=== PATIENT | female | born 1940 | race Caucasian/White ===

== ENCOUNTER → 2019-04-15 | Outpatient (REF) | payer MEDICARE, BC ==
[2019-04-15 15:42] LABS: APPEARANCE, URINE TURBID (CLEAR); BACTERIA, URINE AUTO 3+ (NEGATIVE); BILIRUBIN, URINE AUTO NEGATIVE (NEGATIVE); BLOOD, URINE BLOOD 2+ (NEGATIVE); COLOR, URINE YELLOW (YELLOW); GLUCOSE, URINE (UA) AUTO NEGATIVE (NEGATIVE); KETONE, URINE AUTO NEGATIVE (NEGATIVE); LEUKOCYTE ESTERASE, URINE AUTO 2+ (NEGATIVE); NITRITE, URINE AUTO NEGATIVE (NEGATIVE); PROTEIN, URINE AUTO 1+ mg/dL (NEGATIVE); RBC, URINE AUTO 69 /HPF (0-3); SPECIFIC GRAVITY URINE AUTO 1.014 (1.002-1.035); SQUAMOUS EPITHELIAL CELL UR AU 1 /HPF (0-6); UROBILINOGEN, URINE AUTO 0.2 mg/dL (0.0-2.0); WBC, URINE AUTO TNTC /HPF (0-3)
== END ==
LOC: M LAB REF 15:04
PROVIDERS: ATTEND Nurse Practitioner Family
DX: N39.0 Urinary tract infection, site not specified (principal)

== ENCOUNTER → 2019-08-22 | Outpatient (REF) | payer MEDICARE, BC | LOC: M LAB REF 11:26 | PROVIDERS: ATTEND Nurse Practitioner Adult Health | DX: M81.0 Age-related osteoporosis without current pathological fracture (principal) ==

== ENCOUNTER → 2020-01-28 | Outpatient (REF) | payer MEDICARE, BC | LOC: M LAB REF 16:26 | PROVIDERS: ATTEND Internal Medicine | DX: M81.0 Age-related osteoporosis without current pathological fracture (principal) ==

== ENCOUNTER → 2020-09-07 | Outpatient (REF) | payer MEDICARE, BC | LOC: M LAB REF 12:11 | PROVIDERS: ATTEND Internal Medicine | DX: Z79.899 Other long term (current) drug therapy (principal) ==

== ENCOUNTER → 2021-02-02 | Outpatient (REF) | payer MEDICARE, BC | LOC: M LAB REF 16:21 | PROVIDERS: ATTEND Internal Medicine | DX: M81.0 Age-related osteoporosis without current pathological fracture (principal) ==

== ENCOUNTER → 2021-02-27 | Outpatient (CLI) | payer MEDICARE, BC ==
[~2021-02-27] MED LIST: ACET-683 PO; BIMA01SOL OD; CENT1TAB PO; CLOB60OI5 TOP; DICL1GEL3 TOP; OYSTTAB3 PO; PRESCAP PO; PROL60SO INJ; QC A650T3 PO; ROPI0.5T3 PO; SIMV40TA20 PO; [UNRECOGNIZED DRUG - OTHER] PO
== END ==
LOC: M LABSMTC 11:11
PROVIDERS: ATTEND Anesthesiology
DX: Z01.812 Encounter for preprocedural laboratory examination (principal); Z20.822 Contact with and (suspected) exposure to COVID-19

== ENCOUNTER 2021-03-04 07:47 | Day surgery (SDC) | payer MEDICARE, BC ==
[~2021-03-04] VITALS: Ht 149.9 cm; Wt 55.2 kg
[~2021-03-04 07:47] MED LIST changes: +LIDOCAINE 1% MDV 20ML VIAL SQ PRN; +LR 1,000 ML IV ONE
[2021-03-04] MEDS ORDERED: LIDOCAINE 2% 100MG/5ML SDV (FOR ANES.) As Ordered ONE (08:50)
[2021-03-04] MEDS ORDERED: propofoL 200 MG/20 ML VIAL As Ordered ONE (08:50)
[2021-03-04] MEDS ORDERED: fentaNYL 100 MCG/2 ML INJECTION (J3010) As Ordered ONE (08:51)
[2021-03-04] MEDS ORDERED: MIDAZOLAM INJ 2MG/2ML VIAL (J2250 PER 1MG) As Ordered ONE (08:51)
[2021-03-04] MEDS ORDERED: LIDOCAINE 1% SDV 30ML VIAL As Ordered ONE (08:57)
[2021-03-04] MEDS ORDERED: ceFAZolin 2 GM/D5W 50 ML IV BAG (J0690 PER 500MG) As Ordered ONE (09:23)
[2021-03-04] MEDS: ceFAZolin 1GM VIAL (J0690 PER 500MG) As Ordered ONE ×2 (09:32→10:12)
[2021-03-04] MEDS ORDERED: ceFAZolin SOD 2 GM in IV 1 EA IV ONE (09:55)
[2021-03-04 11:20] VITALS: BP 166/80
--- NOTE | 2021-03-04 15:29 | REP ---
INDICATION: NEUROSTIM STAGE 1. COMPARISON: None. TECHNIQUE: Two C-arm views pelvis. FINDINGS: A catheter is visualized with the radiopaque tip in the posterior left pelvis. IMPRESSION: Forty seconds fluoroscopy time utilized. <Electronically signed by Riccardo Meek > 03/04/21 [id number]
--- NOTE | 2021-03-04 17:00 | RO ---
OPERATIVE NOTE DATE OF OPERATION: 03/04/2021 PREOPERATIVE DIAGNOSIS: Both fecal and urinary incontinence. POSTOPERATIVE DIAGNOSIS: Both fecal and urinary incontinence. PROCEDURE: Stage I InterStim with of course fluoroscopic guidance, placement of temporary generator, programming, etc. SURGEON: Dr. Tori Kennedy MANAGER BACKGROUND: None. ANESTHESIA: Sedation and local. SPECIMENS: None. BRIEF DESCRIPTION OF PROCEDURE AND FINDINGS: Hiral was brought to the operating room, where sufficient sedation was given. She was placed prone in the normal position, prepped in the usual fashion, and, of course, after identification of patient, etc., and measurements, numbed. At this point, we measured the anatomy for this patient. She has very close to the skin, prominent sacrum, and the initial measurement was a bit high based on x-ray, so we went across the foramen with a line on an x-ray shot and marked that and then placed the needle on the patient's left side. This had a steep angle but was in the right foramen. We replaced another with a less dramatic angle, and this also had good adry, but neither one had excellent toe, so we went ahead and tried the patient's right side. We did not have any particular difficulty getting into the foramen, but this definitely did not have much adry at all, nor did it have markedly better toe, so we went back to the left side one and went ahead and used that needle, placed the guide and then the dilator for the foramen, and then the lead itself tracking out laterally, as is typical. Then, of course, having that placed we tested it. Had good response at all four sites, and we went ahead and deployed those times for that hopefully permanent lead, and then we created a pocket out toward the left lateral at the superior aspect of the buttock and used the Bovie to make sure this was hemostatic, irrigated with antibiotic irrigant, and brought that lead out to that pocket, placed the automatic bow maker machine tender, connected them, and closed the pocket with a deep layer closure of 2-0 Vicryl. All the skin wounds were closed with 3-0 Vicryl with good approximation and hemostasis achieved. Dry sterile dressing was then applied. ESTIMATED BLOOD LOSS FOR THE PROCEDURE: Maybe 5 mL. FLUID REPLACEMENT: Crystalloid. COMPLICATIONS: None. CONDITION AND DISPOSITION: Hiral tolerated the procedure well and was recovering in the recovery room in good condition.
== END 2021-03-04 11:40 | disposition home or self-care (01) ==
LOC: M SDC 07:47
PROVIDERS: ATTEND Obstetrics & Gynecology
DX: R32 Unspecified urinary incontinence (principal); R15.9 Full incontinence of feces; Z91.041 Radiographic dye allergy status; Z91.040 Latex allergy status; Z86.718 Personal history of other venous thrombosis and embolism; Z91.018 Allergy to other foods; E78.5 Hyperlipidemia, unspecified; Z79.899 Other long term (current) drug therapy
CPT/HCPCS: 64561; 76000; C1883; C1897; J0690; J2250; J3010

== ENCOUNTER → 2021-03-06 | Outpatient (CLI) | payer MEDICARE, BC ==
[~2021-03-06] MED LIST changes: -LIDOCAINE 1% MDV 20ML VIAL SQ PRN; -LR 1,000 ML IV ONE
== END ==
LOC: M LABSMTC 09:01
PROVIDERS: ATTEND Anesthesiology
DX: Z01.818 Encounter for other preprocedural examination (principal); Z11.52 Encounter for screening for COVID-19

== ENCOUNTER 2021-03-11 07:05 | Day surgery (SDC) | payer MEDICARE, BC ==
[~2021-03-11] VITALS: Ht 149.9 cm; Wt 55.2 kg
[~2021-03-11 07:05] MED LIST changes: +LR 1,000 ML IV ONE; +ceFAZolin SOD 2 GM in IV 1 EA IV ONE
--- OUTSIDE RECORDS SUMMARY | 2021-03-11 07:09 | CCD | Continuity of Care Document ---
Author Author Hiral Garcia M.D. 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 A SVETLANA Roman Onset: 02/28/2011 Pure hypercholesterolemia DAT Smith Onset: 2010 Anemia DAT Keller Onset: 02/28/2011 Gastroesophageal reflux disease DAT Smith Onset: 02/28/2011 Benign neoplasm of cerebral meninges DAT Smith On set: 02/28/2011 Social History Type Date Description Comments Sex Unknown ETOH Use Currently consumes alcohol ONE G LASS WINE Q NIGHT Tobacco Use Start: Unknown Patient has never smoked Allergies and adverse reactions Active Allergies Criticality Reaction | Severity Comments Date Bananas Unable to assess criticality 05/03/2010 Egg Whites Unable to assess criticality 05/03/2010 Latex Allergy Unable to assess criticality 01/19/2012 Contrast Dye Unable to assess criticality sneezing, itching needs p remed 02/23/2016 Medications Active Medications SIG Qnty Indications Ordering Provide r Date Tylenol 8 Hour Arthritis Pain 650mg Tablets ER 1-2x/day as needed Dandre Kendall 02/02/2021 Calcium 600+D [id number] Table ts 1 by mouth every day Alia Garcia M.D. 02/03/20 21 Melatonin ER 3mg Tablets ER 1 by mouth at bedtime Alia Garcia M.D. 02/03/20 21 Ropinirole HCL 0.5mg Tablets take 1 tablet once at dinner and 1 by mouth as needed 120tabs Alia Garcia M.D. 02/02/2021 Centrum Silver Tablets 1 by mouth everyday Alia Garcia M.D. 01/28/20 20 Metamucil 28.3% Powder 1-2 tablespoon every morning as tolerated 1150gm Radha Kendall 01/28/2020 Prednisone 50mg Tablets 1 tab [address], 1 tab 7 hours prior and 1 tab [address] 3tabs Tori Finch, DAT 08/20/2018 Benadryl Allergy 25mg Tablets 2 tabs [address] scan 2tabs Tori Finch, DAT 08/20 Temovate 0.05% Cream apply twice a day prn 30gm Alia Garcia M.D. 08/16/19 19 Simvastatin 40mg Tablets Take 1 Tablet Daily 90tabs DAT Smith 03/26/2018 Alphagan P 0.1% Solution 1 drop left eye twice a day Tori Finch, DAT 02/12/2018 Prolia 60mg/ml Soln Prefill Syring e Inject 60 MG Under The Skin (Subcutaneous Injection) Every 6 Months 1units M81.0 Alia Garcia M.D. 08/01/2016 Right Breast Prosthesis as directed dx:c50.919 1unDAT Estrada 05/21/2015 [facility] dx c50.919 6unDAT Estrada 06/23/2011 Preservision Areds Capsules 1 by mouth every day 30caps Unknown Zinc 30mg Capsules 1 by mo uth every day Unknown Dorzolamide HCL 2% Solution both eyes 1 drop twice a day Unknown History Medications Vitamin D3 25mcg (1000 Ut) Capsule s 1 by mouth every day Alia Garcia M.D. 02/03/20 21 - 03/01/2021 Medications Administered in Office Medication SIG Qnty Indications Ordering Provider Date Administration Of Flu Vaccine Inj ection Alia Garcia M.D. 02/03/20 21 Prolia (denosumab) 60mg,SC injection, ND C#[id number] Injection Nurse Schedul e 09/16/2020 Therapeutic Injection Injection Nurse Schedule 09/16/2020 Covid-19 vaccine, Unspecified Inj ection Unknown 06/19/2020 Covid-19 vaccine, Unspecified Inj ection Unknown 05/22/2020 Prolia (denosumab) 60mg,SC injection, ND C#[id number] Injection Nurse Schedul e 03/16/2020 Therapeutic Injection Injection Nurse Schedule 03/16/2020 Administration Of Flu Vaccine Inj ection Alia Garcia M.D. 01/28/20 20 Prolia (denosumab) 60mg,SC injection, ND C#[id number] Injection Tori Hill er, ANP 09/10/2019 Therapeutic Injection Injection Nurse Schedule 09/10/2019 Administration Of Flu Vaccine Inj ection Tori Finch, ANP 02/20/2019 Prolia (denosumab) 60mg,SC injection, ND C#[id number] Injection Tori Hill , ANP 11/14/2018 Prolia (denosumab) 60mg,SC injection, ND C#[id number] Injection Nurse Sched e 11/14/2018 Chemotherpy Admin Subcutaneous/Im Non-Ho rmonal Anti-Neoplastic Injection Tori denise, [facility] 11/14/2018 Chemotherpy Admin Subcutaneous/Im Non-Ho rmonal Anti-Neoplastic Injection Nurse [facility] 11/14/2018 Prolia (denosumab) 60mg,SC injection, ND C#[id number] Injection Nurse Schedul e 03/28/2018 Chemotherpy Admin Subcutaneous/Im Non-Ho rmonal Anti-Neoplastic Injection Nurse [facility] 03/28/2018 Administration Of Flu Vaccine Inj ection Tori Finch, ANP 02/12/2018 Prolia (denosumab) 60mg,SC injection, ND C#[id number] Injection Tori Hill , [facility] 09/12/2017 Chemotherpy Admin Subcutaneous/Im Non-Ho rmonal Anti-Neoplastic Injection Tori denise, [facility] 09/12/2017 Prolia (denosumab) 60mg,SC injection, [facility]#[id number] Injection Nurse Sched e 03/08/2017 Chemotherpy Admin Subcutaneous/Im Non-Ho rmonal Anti-Neoplastic Injection Nurse Rodger fischer 03/08/2017 Administration Of Flu Vaccine Inj raz James MD 02/07/2017 Chemotherpy Admin Subcutaneous/Im Non-Ho rmonal Anti-Neoplastic Injection Nurse [facility] amado 04/13/2016 Administration Of Flu Vaccine Inj ection Tori Finch, ANP 02/16/2016 Chemotherpy Admin Subcutaneous/Im Non-Ho rmonal Anti-Neoplastic Injection Nurse Rodger fischer 03/27/2015 Administration Of Flu Vaccine Inj raz James MD 02/04/2015 Chemotherpy Admin Subcutaneous/Im Non-Ho rmonal Anti-Neoplastic Injection Nurse Rodger fischer 09/25/2014 Chemotherpy Admin Subcutaneous/Im Non-Ho rmonal Anti-Neoplastic Injection Nurse [facility] amado 03/27/2014 Administration Of Flu Vaccine Inj ection Tori Finch, [facility] 02/11/2014 Administration Of Flu Vaccine Inj annaleeion Hu James MD 02/04/2013 Administration Of Flu Vaccine Inj ection Tori Finch, ANP 01/19/2012 Administration Of Flu Vaccine Inj ection Tori Finch, ANP 02/28/2011 Administration Of Flu Vaccine Inj annaleeion Tori Finch, ANP 02/15/2010 Administration Of Flu Vaccine Inj ection Tori Finch, ANP 02/03/2009 Administration Of Flu Vaccine Inj ection Tori Finch, ANP 01/23/2008 Administration Of Flu Vaccine Inj ection Tori Finch, ANP 02/07/2007 Administration Of Flu Vaccine Inj annaleeion Tori Finch, ANP 03/03/2005 Administration Of Flu Vaccine Inj ection Tori Finch, ANP 01/26/2004 Immunizations CPT Code Status Date Vaccine Lot # [id number] Given 02/02/2021 Influenza Vaccin e Quadrivalent Preser/Antibiotic Free Im Use [id number] 22697 Given 01/28/2020 Influenza Vaccin e Quadrivalent Preser/Antibiotic Free Im Use [id number] 09869 Given 02/20/2019 Influenza Vaccin e Quadrivalent Preser/Antibiotic Free Im Use [id number] 81912 Given 03/16/2018 Shingrix Zoster Vaccine (HZV), Recombinant, Subunit, Adjuvanted 16951 Given 02/12/2018 Influenza Virus Vaccine, Quadrivalent ([id number]), Derived From 9 Given 08/19/2017 Shingrix 93906 Given 08/19/2017 Shingrix Zoster Vaccine (HZV), Recombinant, Subunit, Adjuvanted 57073 Given 02/07/2017 Influenza Vaccin e Quadrivalent Preser/Antibiotic Free Im Use [id number] Given 02/19/2016 Prevnar 13 Q2037 Given 02/16/2016 Fluvirin Virus Vaccine [id number] 01 Q2037 Given 02/04/2015 Fluvirin Virus Vaccine 87204 01 07178 Given 02/11/2014 Pneumovax 23 [id number] Q2037 Given 02/11/2014 Fluvirin Virus Vaccine 69459 21 15344 Given 08/12/2013 Adacel- Tetanus Diphtheria P ertussis [id number] Q2037 Given 02/04/2013 Fluvirin Virus Vaccine Q2037 Given 01/19/2012 Fluvirin Virus Vaccine Q2037 Given 02/28/2011 Fluvirin Virus Vaccine 69756 Given 02/15/2010 Influenza Virus Vaccine 84737 Given 02/03/2009 Influenza Virus Vaccine 29119 Given 01/23/2008 Influenza Virus Vaccine 20466 Given 02/07/2007 Influenza Virus Vaccine 93106 Given 08/16/2006 Zoster Vaccine 01483 Given 03/21/2006 Influenza Virus Vaccine 92146 Given 03/03/2005 Influenza Virus Vaccine 59378 Given 01/26/2004 Influenza Virus Vaccine Vital Signs Date Vital Result Comment 03/01/2021 3:32pm BP Systolic 154 mmHg RT Arm BP Diastolic 86 mmHg RT Arm BP Systolic Recheck 142 mmHg BP Diastolic Recheck 82 mmHg Heart Rate 88 /min Height 60 inches 5'0" Weight 122.00 lb O2 Saturation Level with Exercise 97 % RM Air BMI (Body Mass Index) 23.8 kg/m2 02/02/2021 10:51am BP Systolic 130 mmHg BP Diastolic 74 mmHg Heart Rate 86 /min Height 60 inches 5'0" Weight 120.12 lb O2 % BldC Oximetry 97 % RM Air BMI (Body Mass Index) 23.5 kg/m2 Results Test Acquired Date Facility Test Result H/L Range Note Coronavirus 2019 Nasopharygeal 03/06/2021 [place] [address] [phone] Coronavirus 2019 Nasopharygeal ASSAY INFORMATIO <SEE N OTE> 1 A1c 03/01/2021 [facility] Fixing Carpenter: [place] [address] [phone] Hba1c 5.6 % <5.7 2 Est Avg Glucose 114 mg/dL High 60 - 110 Complete Blood Count 03/01/2021 [facility] Fixing Carpenter: [place] [address] [phone] WBC 4.7 x10*3/UL 4.1 - 10.9 RBC 4.06 x10*6/UL Low 4.20 - 6.30 Hemoglobin 12.9 g/dL 12.0 - 18.0 Hematocrit 37.1 % 37.0 - 51.0 MCV 91.4 fL 80.0 - 97.0 MCH 31.9 pg 26.0 - 32.0 MCHC 34.9 g/dL 31.0 - 38.0 RDW 12.7 % 11.6 - 13.7 PLT 192 x10*3/UL 140 - 440 MPV 8.9 FL 7.8 - 11.0 Lymph % 25.0 % 10.0 - 58.5 Mid % 5.9 % 1.7 - 9.3 Neut % 69.1 % 37.0 - 92.0 Lymph # 1.2 x10*3/UL 0.6 - 4.1 Mid # 0.2 x10*3/UL 0.1 - 0.6 Neut # 3.3 x10*3/UL 2.0 - 7.8 Coronavirus 2019 Nasopharygeal 02/27/2021 [place] [address] [phone] Coronavirus 2019 Nasopharygeal ASSAY INFORMATIO <SEE N OTE> 3 Ua Dipstick Only 02/03/2021 [facility] Fixing Carpenter: [place] [address] [phone] Urine Color YELLOW Yellow Urine Appearance SL. HAZY Abnormal Clear Urine PH 6.0 units 5.0 - 9.0 Urine Specific [place] 1.015 1.005 - 1.030 Urine Leukocytes TRACE Abnormal Negative Urine Blood NEGATIVE Negative Urine Protein NEGATIVE Negative -Trace Urine Glucose NEGATIVE mg/dL Negative Urine Nitrite NEGATIVE Negative Urine Ketone NEGATIVE mg/dL Negative Urine Bilirubin NEGATIVE Negative Urine Urobilinogen 0.2 mg/dL 0.2 - 1.0 Laboratory test finding 02/02/2021 [facility] [address] [place] [address] [phone] Phosphorus Level 4.2 mg/dL Normal 2.5-4.9 Complete Blood Count 02/02/2021 [facility] Fixing Carpenter: [place] [address] [phone] WBC 3.4 x10*3/UL Low 4.1 - 10.9 RBC 4.23 x10*6/UL 4.20 - 6.30 Hemoglobin 13.1 g/dL 12.0 - 18.0 Hematocrit 38.9 % 37.0 - 51.0 MCV 92.1 fL 80.0 - 97.0 MCH 30.9 pg 26.0 - 32.0 MCHC 33.6 g/dL 31.0 - 38.0 RDW 13.2 % 11.6 - 13.7 PLT 260 x10*3/UL 140 - 440 MPV 7.3 FL Low 7.8 - 11.0 Lymph % 25.4 % 10.0 - 58.5 Mid % 7.7 % 1.7 - 9.3 Neut % 66.9 % 37.0 - 92.0 Lymph # 0.8 x10*3/UL 0.6 - 4.1 Mid # 0.4 x10*3/UL 0.1 - 0.6 Neut # 2.2 x10*3/UL 2.0 - 7.8 Laboratory test finding 02/02/2021 [facility] Fixing Carpenter: [place] [address] [phone] Creatine Kinase(CK) 88 U/L 26 - 192 Magnesium 2.2 mg/dL 1.8 - 2.4 Comprehensive Chem Profile 02/02/2021 [facility] Fixing Carpenter: [place] [address] [phone] Glucose 94 mg/dL 74 - 99 4 BUN 14 mg/dL 7 - 18 Creatinine 0.7 mg/dL 0.6 - 1.3 Sodium 139 mEq/L 136 - 145 Potassium 3.6 mEq/L 3.5 - 5.1 Chloride 102 mEq/L 98 - 107 Carbon Dioxide 33 mEq/L High 21 - 32 Calcium 9.2 mg/dL 8.5 - 10.1 Alk. Phosphatase 72 mg/dL 46 - 116 Total Bilirubin 0.5 mg/dL 0.2 - 1.0 Ast (Sgot) 23 U/L 15 - 37 Alt (SGPT) 28 U/L 12 - 78 Albumin 4.1 g/dL 3.4 - 5.0 Total Protein 7.6 g/dL 6.4 - 8.2 A/G Ratio 1.17 CALC 1.00 - 1.90 GFR >= 60 mL/min >60 GFR >= 60 mL/min >60 5 Laboratory test finding 02/02/2021 [facility] valentine Fixing Carpenter: [place] [address] [phone] Direct Bilirubin 0.2 mg/dL 0.0 - 0.2 Lipid Profile 02/02/2021 [facility] Fixing Carpenter: [place] [address] [phone] Cholesterol 184 mg/dL 131 - 200 Triglycerides 85 mg/dL 30 - 150 HDL Cholesterol 99 mg/dL High 35 - 60 LDL (Calculated) 68 CALC 50 - 159 Laboratory test finding 02/02/2021 [facility] Fixing Carpenter: [place] [address] [phone] Thyroid Stimulating Hormone 0.57 uIU/mL 0.3 6 - 3.74 Laboratory test finding 02/02/2021 [facility] Fixing Carpenter: [place] [address] [phone] Vitamin D 25-Hydroxy 70.1 ng/ml 24.0 - 80.0 6 Basic Metabolic Panel 09/07/2020 [facility] Fixing Carpenter: [place] [address] [phone] Glucose 93 mg/dL 74 - 99 7 BUN 15 mg/dL 7 - 18 Creatinine 0.7 mg/dL 0.6 - 1.3 Sodium 143 mEq/L 136 - 145 Potassium 4.1 mEq/L 3.5 - 5.1 Chloride 107 mEq/L 98 - 107 Carbon Dioxide 31 mEq/L 21 - 32 Calcium 8.9 mg/dL 8.5 - 10.1 GFR >= 60 mL/min >60 GFR >= 60 mL/min >60 8 Laboratory test finding 09/07/2020 [facility] Fixing Carpenter: [place] [address] [phone] Magnesium 2.2 mg/dL 1.8 - 2.4 Laboratory test finding 09/07/2020 [facility] [address], [place] [address] [phone] Phosphorus Level 3.9 mg/dL Normal 2.5-4.9 1 ASSAY INFORMATION: Real Time RT-PCR NOTE: The COVID-19 assay has been cleared by the U.S. Food and Drug Administration under the Emergency Use Authorization (EUA). [facility] and [facility] are designated as high complexity laboratories by the Clinical Laboratory Improvement Amendments of 1988(CLIA) and are qualified to perform this test. Not Detected 2 Lab Result Notes: Pre-Diabetes 5.7 - 6.4 % Diabetes = or > 6.5% 3 ASSAY INFORMATION: Real Time RT-PCR NOTE: The COVID-19 assay has been cleared by the U.S. Food and Drug Administration under the Emergency Use Authorization (EUA). [facility] and [facility] are designated as high complexity laboratories by the Clinical Laboratory Improvement Amendments of 1988(CLIA) and are qualified to perform this test. Not Detected 4 100-125 mg/dL PRE-DIABET ES/FASTING >126 mg/dL DIABETES/FASTING 5 CHRONIC KIDNEY DISEASE STAGI NG PER NKF STAGE I & II GFR >= 60 NORMAL TO MILDLY DECREASED STAGE III GFR 30-59 MODERATELY DECREASED STAGE IV GFR 15-29 SEVERELY DECREASED STAGE V GFR <15 VERY LITTLE GFR LEFT ESRD GFR <15 ON BURR MACHINE OPERATOR 6 This test was performed [employer] Vitamin D immunoassay kit. Values obtained with different assay methods should not be used interchangeably. 7 100-125 mg/dL PRE-DIABET ES/FASTING >126 mg/dL DIABETES/FASTING 8 CHRONIC KIDNEY DISEASE STAGI NG PER NKF STAGE I & II GFR >= 60 NORMAL TO MILDLY DECREASED STAGE III GFR 30-59 MODERATELY DECREASED STAGE IV GFR 15-29 SEVERELY DECREASED STAGE V GFR <15 VERY LITTLE GFR LEFT ESRD GFR <15 ON BURR MACHINE OPERATOR Procedures Date Code Description Status 02/02/2021 89249 Office/Outpatient Established Mo d MDM 30-39 Min Completed 01/19/2021 78866 Chronic Care MGMT 20 Mins Clinical Staff Time Per Calendar Month Completed 01/19/2021 51698 Chronic Care Management Services Ea Addl 20 Min Completed 12/17/2020 10781 Chronic Care MGMT 20 Mins Clinical Staff Time Per Calendar Month Completed 12/17/2020 87264 Chronic Care Management Services Ea Addl 20 Min Completed 11/02/2020 65862 Chronic Care MGMT 20 Mins Clinical Staff Time Per Calendar Month Completed 11/02/2020 01206 Chronic Care Management Services Ea Addl 20 Min Completed 10/21/2020 [id number] Bone Mineral Density Test [facility] 10/21/2020 [id number] Mammogram Completed 09/16/2020 29760 Therapeutic Injection Completed 09/15/2020 83679 Chronic Care MGMT 20 Mins Clinical Staff Time Per Calendar Month Completed 10/17/2019 [id number] Mammogram Completed 03/26/2018 [id number] Bone Mineral Density Test [facility] 03/26/2018 [id number] Mammogram Completed 03/27/2017 [id number] Mammogram Completed 03/24/2016 [id number] Bone Mineral Density Test [facility] 03/24/2016 [id number] Mammogram Completed 03/12/2015 [id number] Mammogram Completed 03/06/2014 [id number] Bone Mineral Density Test Comple [facility] 03/06/2014 [id number] Mammogram Completed 02/11/2013 [id number] Mammogram Completed 02/10/2012 [id number] Mammogram Completed 07/14/2011 [id number] Colonoscopy Completed 02/16/2011 [id number] Bone Mineral Density Test Comple [facility] 02/04/2011 [id number] Mammogram Completed 02/03/2010 [id number] Mammogram Completed 01/30/2009 665084240 Bone Mineral Density Test Comple [facility] 10/05/2007 [id number] Colonoscopy Completed Medical Devices Description No Information Available Encounters Type Date Location Provider Dx Diagnosis Office Visit 02/02/2021 11:00a [facility] Agus Garcia M.D. 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 02/03/2021 I10 Essential (primary) hypertension Lab Schedule 02/02/2021 M19.90 Unspecified osteoarthritis, unsp ecified site Alia Garcia M.D. 02/02/2021 N81.10 Cystocele, unspecified Alia Garcia M.D. 02/02/2021 E78.00 Pure hypercholesterolemia, unspe cified Alia Garcia M.D. 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 02/02/2021 K21.9 Gastro-esophageal reflux disease without esophagitis Alia Garcia M.D. 02/02/2021 G25.81 Restless legs syndrome Alia Garcia M.D. 02/02/2021 M81.0 Age-related osteoporosis without current pathological fracture Alia Garcia M.D. 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 02/02/2021 Z13.89 Encounter for screening for othe r disorder Alia Garcia M.D. 02/02/2021 Z23 Encounter for immunization Alia Garcia M.D. 02/02/2021 Z79.899 Other intermodal dispatcher (current) drug t herapy Alia Garcia M.D. 02/02/2021 H40.9 Unspecified glaucoma Alia Chapa M.D. 02/02/2021 G47.00 Insomnia, unspecified Alia pascal M.D. 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 01/19/2021 K21.9 Gastro-esophageal reflux disease without esophagitis Alia Garcia M.D. 01/19/2021 I10 Essential (primary) hypertension Alia Garcia M.D. 01/19/2021 E78.00 Pure hypercholesterolemia, unspe cified Alia Garcia M.D. 12/17/2020 K21.9 Gastro-esophageal reflux disease without esophagitis Alia Garcia M.D. 12/17/2020 I10 Essential (primary) hypertension Alia Garcia M.D. 12/17/2020 M81.0 Age-related osteoporosis without current pathological fracture Alia Garcia M.D. 11/02/2020 K21.9 Gastro-esophageal reflux disease without esophagitis Alia Garcia M.D. 11/02/2020 I10 Essential (primary) hypertension Alia Garcia M.D. 09/16/2020 M81.0 Age-related osteoporosis without current pathological fracture Alia Garcia M.D. 09/16/2020 M81.0 Age-related osteoporosis without current pathological fracture Nurse Schedule 09/15/2020 K21.9 Gastro-esophageal reflux disease without esophagitis Alia Garcia M.D. 09/15/2020 I10 Essential (primary) hypertension Alia Garcia M.D. 09/07/2020 Z79.899 Other alf (current) drug t herapy Alia Garcia M.D. 09/07/2020 Z79.899 Other alf (current) drug t herapy Lab Schedule 09/07/2020 I10 Essential (primary) hypertension Alia Garcia M.D. 09/07/2020 I10 Essential (primary) hypertension Lab Schedule Plan of Treatment Future Appointment(s):* 03/16/2021 9:10 am - Lab Schedule at [facility] * 08/03/2021 9:00 am - Alia Garcia M.D. at [facility] * 03/23/2021 1:40 pm - Nurse Schedule at [facility] 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 Following through at [facility]. Health Maintenance. MW paperwork is reviewed. She is UTD with her vaccines except for the flu shot which is given today. Otherwise, checklist, cognitive screening, PHQ-9, CAGE and preventative wellness reviewed. She would like to hold off on any further colon cancer screenings, mammograms will continue because of the breast cancer and bone densities will be continued. Otherwise, diet and exercise discussed. Functional Status Description No Information Available Mental Status Description No Information Available Referrals Refer to Reason for Referral Status Appt Date Lizeth Kennedy MD CONSULT AND TREATMENT FOR PELVIC ORGAN PROLA PSE. Created [facility] [address], [place] [address] [phone]
--- OUTSIDE RECORDS SUMMARY | 2021-03-11 07:09 | CCD | Continuity of Care Document ---
Author Author Hiral POTTER Organization Unknown Address [address] [place] [address] Phone [phone] Care Team Providers Care Financial Aid Manager Name Role Phone Alia Garcia MD [facility] [phone] Problems Description No Information Available Social History Type Date Description Comments Sex Unknown Tobacco Use Start: Unknown Never Smoked Cigarettes Smoking Status Reviewed: 03/10/21 Never Smoked Cigarettes ETOH Use Non-smoker, Occasional Drinker, Non-drug User Tobacco Use Start: Unknown Patient has never smoked Exercise Type/Frequency Exercises regularly Allergies and adverse reactions Description No Known Drug Allergies Medications Active Medications SIG Qnty Indications Ordering Provide r Date Lumigan 0.01% Solution Unknown Clobetasol 17 Propionate 0.5% Powder Unknown Calcium Magnesium Zinc 333-133-5mg Tablets Unknown Centrum Silver 50+Women 50+Women T ablets Unknown Prolia 60mg/ml Soln Prefill Syring e 1 dose sq every 6 mo Unknown Simvastatin 40mg Tablets Unknown Immunizations Description No Information Available Vital Signs Date Vital Result Comment 02/17/2021 9:32am BP Systolic 120 mmHg BP Diastolic 80 mmHg Height 59 inches 4'11" Weight 121.00 lb BMI (Body Mass Index) 24.4 kg/m2 BSA (Body Surface Area) 1.49 m2 Results Test Acquired Date Facility Test Result H/L Range Note Thinprep W/Reflex HR HPV If Asc-US 02/17/2021 Propa th TP Reflex HPV ASCUS Normal Normal 1 TP Reflex HPV ASCUS SEE IMAGE 1 SPECIME N PART A. Cervical, Endocervical, ThinPrep Pap (Quality Control Microbiologist) CYTOLOGY HX-------- Other Information: Post-menopausal FINAL DIAGNOSIS---- INTERPRETATION: Negative for Intraepithelial Lesion or Malignancy. SPECIMEN ADEQUACY:Satisfactory for evaluation. Endocervical/transformation zone component present. ADDITIONAL FINDINGS:Atrophic pattern. Procedures Date Code Description Status 03/04/2021 85594 Neurostimulator Pulse Generator Brain/Spinal Cord First Hour Completed 03/04/2021 92866 Fluoroscopic guidanc e for needle placement (eg. Biopsy, aspiratio Completed 03/04/2021 88200 Insertion/Replacemen t Peripheral Neurostimulator Pulse Generator Completed 03/04/2021 32286 Implant Neuroelectrodes,Sacral N erve Completed 02/17/2021 43922 Office/Outpatient [facility] 6 0-74 Minutes Completed Medical Devices Description No Information Available Encounters Type Date Location Provider Dx Diagnosis Office Visit 03/10/2021 9:00a [facility] life science research assistant Lizeth Potter MD N3 2.81 Overactive bladder N39.41 Urge incontinence R15.9 Full incontinence of feces Office Visit 02/17/2021 9:15a [facility] life science research assistant Lizeth Potter MD R1 5.9 Full incontinence of feces R15.2 Fecal urgency N32.81 Overactive bladder N39.41 Urge incontinence N81.11 Cystocele, midline N81.2 Incomplete uterovaginal prol apse 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 Z91.89 Oth personal risk factors, n ot elsewhere classified Assessments Date Code Description Provider 03/10/2021 N32.81 Overactive bladder Daryl Potter i, MD 03/10/2021 N39.41 Urge incontinence Lizeth Potter MD 03/10/2021 R15.9 Full incontinence of feces Lizeth Johnson MD 03/04/2021 N32.81 Overactive bladder Daryl Potter i, MD 03/04/2021 N39.41 Urge incontinence Lizeth Potter MD 03/04/2021 R15.9 Full incontinence of feces Lizeth Johnson MD 03/04/2021 R15.2 Fecal urgency Lizeth Potter 02/17/2021 R15.9 Full incontinence of feces Lizeth Johnson MD 02/17/2021 R15.2 Fecal urgency Lizeth Potter 02/17/2021 N32.81 Overactive bladder Daryl Potter i, MD 02/17/2021 N39.41 Urge incontinence Lizeth Potter MD 02/17/2021 N81.11 Cystocele, midline Daryl Potter i, MD 02/17/2021 N81.2 Incomplete uterovaginal prolapse Lizeth Potter MD 02/17/2021 N95.2 Postmenopausal atrophic vaginiti s Lizeth Potter MD 02/17/2021 Z91.89 Other specified pers onal risk factors, not elsewhere classified Lizeth Potter MD Plan of Treatment Future Appointment(s):* 03/26/2021 10:00 am - Lizeth Potter MD at [place] [facility] life science research assistant * 03/11/2021 10:30 am - Lizeth Potter MD at [facility] * 02/18/2022 9:45 am - Lizeth Potter MD at [place] [facility] life science research assistant 03/10/2021 - Lizeth Potter MD* N32.81 Overactive bladder * N39.41 Urge incontinence * R15.9 Full incontinence of feces Functional Status Description No Information Available Mental Status Description No Information Available Referrals Description No Information Available
--- OUTSIDE RECORDS SUMMARY | 2021-03-11 07:09 | CCD | Continuity of Care Document ---
Author Author Hiral Garcia M.D. 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 08/01/2016 Right Breast Prosthesis as directed dx:c50.919 1units Tori Finch, DAT 05/21/2015 [facility] directed dx c50.919 6units Tori Finch, DAT 06/23/2011 Preservision Areds Capsules 1 by mouth [...] 02/03/20 21 Prolia (denosumab) 60mg,SC injection, ND C#[id number] Injection Nurse Schedul e 09/16/2020 Therapeutic Injection Injection Nurse Schedule 09/16/2020 Covid-19 vaccine, Unspecified Inj ection Unknown 06/19/2020 Covid-19 vaccine, Unspecified Inj ection Unknown 05/22/2020 Prolia (denosumab) 60mg,SC injection, ND C#[id number] Injection Nurse Schedul e 03/16/2020 Therapeutic Injection Injection Nurse Schedule 03/16/2020 Administration Of Flu Vaccine Inj ection Alia Garcia M.D. 01/28/20 20 Prolia (denosumab) 60mg,SC injection, ND C#[id number] Injection Tori Leyva er, ANP 09/10/2019 Therapeutic Injection Injection Nurse Schedule 09/10/2019 Administration Of Flu Vaccine Inj ection Tori Finch, [facility] 02/20/2019 Prolia (denosumab) 60mg,SC injection, ND C#[id number] Injection Tori Jorge [facility], ANP 11/14/2018 Prolia (denosumab) 60mg,SC injection, ND C#[id number] Injection Nurse Sched e 11/14/2018 Chemotherpy Admin Subcutaneous/Im Non-Ho rmonal Anti-Neoplastic Injection Tori denise, [facility] 11/14/2018 Chemotherpy Admin Subcutaneous/Im Non-Ho rmonal Anti-[facility]/14/2018 Prolia (denosumab) 60mg,SC injection, ND C#[id number] Injection Nurse Sched e 03/28/2018 Chemotherpy Admin Subcutaneous/Im Non-Ho rmonal Anti-Neoplastic Injection Nurse [facility] 03/28/2018 Administration Of Flu Vaccine Inj ection Tori Finch, [facility] 02/12/2018 Prolia (denosumab) 60mg,SC injection, ND C#[id number] [facility] 09/12/2017 Chemotherpy Admin Subcutaneous/Im Non-Ho rmonal Anti-Neoplastic Injection Tori denise, ANP 09/12/2017 Prolia (denosumab) 60mg,SC injection, [facility]#[id number] Injection Nurse Sched e 03/08/2017 Chemotherpy Admin Subcutaneous/Im Non-Ho rmonal Anti-Neoplastic Injection Nurse Rodger fischer 03/08/2017 Administration Of Flu Vaccine Inj annaleeion Hu James MD 02/07/2017 Chemotherpy Admin Subcutaneous/Im Non-Ho rmonal Anti-Neoplastic Injection Nurse [facility] 04/13/2016 Administration Of Flu Vaccine Inj ection Tori Finch, [facility] 02/16/2016 Chemotherpy Admin Subcutaneous/Im Non-Ho rmonal Anti-Neoplastic Injection Nurse Rodger fischer 03/27/2015 Administration Of Flu Vaccine Inj annaleeion Hu James MD 02/04/2015 Chemotherpy Admin Subcutaneous/Im Non-Ho rmonal Anti-Neoplastic Injection Nurse Rodger fischer 09/25/2014 Chemotherpy Admin Subcutaneous/Im Non-Ho rmonal Anti-Neoplastic Injection Nurse [facility] [place] 03/27/2014 Administration Of Flu Vaccine Inj ection Tori Finch, [facility] 02/11/2014 Administration Of Flu Vaccine Inj annaleeion Hu James MD 02/04/2013 Administration Of Flu Vaccine Inj ection Tori Finch, ANP 01/19/2012 Administration Of Flu Vaccine Inj ection Tori Finch, ANP 02/28/2011 Administration Of Flu Vaccine Inj ection Tori Finch, ANP 02/15/2010 Administration Of Flu Vaccine Inj ection Tori Finch, ANP 02/03/2009 Administration Of Flu Vaccine Inj ection Tori Finch, ANP 01/23/2008 Administration Of Flu Vaccine Inj ection Tori Finch, ANP 02/07/2007 Administration Of Flu Vaccine Inj ection Tori Finch, ANP 03/03/2005 Administration Of Flu Vaccine Inj ection Tori Finch, ANP 01/26/2004 Immunizations CPT Code Status Date Vaccine Lot # [id number] Given 02/02/2021 Influenza Vaccin e Quadrivalent Preser/Antibiotic Free Im Use [id number] 94080 Given 01/28/2020 Influenza Vaccin e Quadrivalent Preser/Antibiotic Free Im Use 294684 91021 Given 02/20/2019 Influenza Vaccin e Quadrivalent Preser/Antibiotic Free Im Use [id number] 34868 Given 03/16/2018 Shingrix Zoster Vaccine (HZV), Recombinant, Subunit, Adjuvanted 95534 Given 02/12/2018 Influenza Virus Vaccine, Quadrivalent ([id number]), Derived From 8 Given 08/19/2017 Shingrix 21442 Given 08/19/2017 Shingrix Zoster Vaccine (HZV), Recombinant, Subunit, Adjuvanted 82249 Given 02/07/2017 Influenza Vaccin e Quadrivalent Preser/Antibiotic Free Im Use [id number] U-PneuC Given 02/19/2016 Prevnar 13 Q2037 Given 02/16/2016 Fluvirin Virus Vaccine 92895 01 Q2037 Given 02/04/2015 Fluvirin Virus Vaccine 29948 01 90765 Given 02/11/2014 Pneumovax 23 [id number] Q2037 Given 02/11/2014 Fluvirin Virus Vaccine 42884 21 35999 Given 08/12/2013 Adacel- Tetanus Diphtheria P ertussis [id number] Q2037 Given 02/04/2013 Fluvirin Virus Vaccine Q2037 Given 01/19/2012 Fluvirin Virus Vaccine Q2037 Given 02/28/2011 Fluvirin Virus Vaccine 71347 Given 02/15/2010 Influenza Virus Vaccine 31706 Given 02/03/2009 Influenza Virus Vaccine 53241 Given 01/23/2008 Influenza Virus Vaccine 56506 Given 02/07/2007 Influenza Virus Vaccine 19836 Given 08/16/2006 Zoster Vaccine 66248 Given 03/21/2006 Influenza Virus Vaccine 89729 Given 03/03/2005 Influenza Virus Vaccine 82645 Given 01/26/2004 Influenza Virus Vaccine Vital Signs Date Vital Result Comment 03/01/2021 3:32pm BP Systolic 154 mmHg RT Arm BP Diastolic 86 mmHg RT Arm Heart Rate 88 /min Height 60 inches [...] Date Facility Test Result H/L Range Note A1c 03/01/2021 [facility] Freight Receiver: [place] [address] [phone] Hba1c 5.6 % <5.7 1 Est Avg Glucose 114 mg/dL High 60 - 110 Coronavirus 2019 Nasopharygeal 02/27/2021 [place] [address] [phone] Coronavirus 2019 Nasopharygeal ASSAY INFORMATIO <SEE N OTE> 2 Ua Dipstick Only 02/03/2021 [facility] Freight Receiver: Dr Hu James [place], [place] [id number] [phone] Urine Color YELLOW Yellow Urine Appearance SL. HAZY Abnormal Clear Urine PH 6.0 units 5.0 - 9.0 Urine Specific [place] 1.015 1.005 - 1.030 Urine Leukocytes TRACE Abnormal Negative Urine Blood NEGATIVE Negative Urine Protein NEGATIVE Negative -Trace Urine Glucose NEGATIVE mg/dL Negative Urine Nitrite NEGATIVE Negative Urine Ketone NEGATIVE mg/dL Negative Urine Bilirubin NEGATIVE Negative Urine Urobilinogen 0.2 mg/dL 0.2 - 1.0 Laboratory test finding 02/02/[address] [address] [phone] Phosphorus Level 4.2 mg/dL Normal 2.5-4.9 Complete Blood Count 02/02/2021 [facility] Freight Receiver: Dr Hu James [place], [place] [id number] [phone] WBC 3.4 x10*3/UL Low 4.1 - 10.9 [...] 2.0 - 7.8 Laboratory test finding 02/02/2021 [facility] branden valentine Freight Receiver: [place] [address] [phone] Creatine Kinase(CK) 88 U/L 26 - 192 Magnesium 2.2 mg/dL 1.8 - 2.4 Comprehensive Chem Profile 02/02/2021 [facility] Freight Receiver: [place] [address] [phone] Glucose 94 mg/dL 74 - 99 3 BUN 14 mg/dL 7 - 18 Creatinine [...] mL/min >60 GFR >= 60 mL/min >60 4 Laboratory test finding 02/02/2021 [facility] Rep branden valentine Freight Receiver: [place] [address] [phone] Direct Bilirubin 0.2 mg/dL 0.0 - 0.2 Lipid Profile 02/02/2021 [facility] , Freight Receiver: [place] [address] [phone] Cholesterol 184 mg/dL 131 - 200 Triglycerides 85 mg/dL 30 - 150 HDL Cholesterol 99 mg/dL High 35 - 60 LDL (Calculated) 68 CALC 50 - 159 Laboratory test finding 02/02/2021 [facility] branden Preciado Freight Receiver: Dr Hu James [place] [id number] [phone] Thyroid Stimulating Hormone 0.57 uIU/mL 0.3 6 - 3.74 Laboratory test finding 02/02/2021 [facility] branden Preciado Freight Receiver: Dr Hu James [place] [id number] [phone] Vitamin D 25-Hydroxy 70.1 ng/ml 24.0 - 80.0 5 Basic Metabolic Panel 09/07/2020 [facility] branden Paz Freight Receiver: [place] [address] [phone] Glucose 93 mg/dL 74 - 99 6 BUN 15 mg/dL 7 - 18 Creatinine 0.7 mg/dL 0.6 - 1.3 Sodium 143 mEq/L 136 - 145 Potassium 4.1 mEq/L 3.5 - 5.1 Chloride 107 mEq/L 98 - 107 Carbon Dioxide 31 mEq/L 21 - 32 Calcium 8.9 mg/dL 8.5 - 10.1 GFR >= 60 mL/min >60 GFR >= 60 mL/min >60 7 Laboratory test finding 09/07/2020 [facility] branden Preciado Freight Receiver: [place] [address] [phone] Magnesium 2.2 mg/dL 1.8 - 2.4 Laboratory test finding 09/07/2020 [facility] [address] [place] [id number] [phone] Phosphorus Level 3.9 mg/dL Normal 2.5-4.9 1 Lab Result Notes: Pre-Diabetes 5.7 - 6.4 % Diabetes = or > 6.5% 2 ASSAY INFORMATION: Real Time RT-PCR NOTE: The COVID-19 assay has been cleared by the U.S. Food and Drug Administration under the Emergency Use Authorization (EUA). [facility] and [facility] are designated as high complexity laboratories by the Clinical Laboratory Improvement Amendments of 1988(CLIA) and are qualified to perform this test. Not Detected 3 100-125 mg/dL PRE-DIABET ES/FASTING >126 mg/dL DIABETES/FASTING 4 CHRONIC KIDNEY DISEASE STAGI NG PER NKF STAGE I & II GFR >= 60 NORMAL TO MILDLY DECREASED STAGE III GFR 30-59 MODERATELY DECREASED STAGE IV GFR 15-29 SEVERELY DECREASED STAGE V GFR <15 VERY LITTLE GFR LEFT ESRD GFR <15 ON CYTOLOGY LABORATORY MANAGER 5 This test was performed [employer] IP Vitamin D immunoassay kit. Values obtained with different assay methods should not be used interchangeably. 6 100-125 mg/dL PRE-DIABET ES/FASTING >126 mg/dL DIABETES/FASTING 7 CHRONIC KIDNEY DISEASE STAGI NG PER NKF STAGE I & II GFR >= 60 NORMAL TO MILDLY DECREASED STAGE III GFR 30-59 MODERATELY DECREASED STAGE IV GFR 15-29 SEVERELY DECREASED STAGE V GFR <15 VERY LITTLE GFR LEFT ESRD GFR <15 ON CYTOLOGY LABORATORY MANAGER Procedures Date Code Description Status 02/02/2021 10083 Office/Outpatient Established Mo d MDM 30-39 Min Completed 01/19/2021 78557 Chronic Care MGMT 20 Mins Clinical Staff Time Per Calendar Month Completed 01/19/2021 24849 Chronic Care Management Services Ea Addl 20 Min Completed 12/17/2020 72220 Chronic Care MGMT 20 Mins Clinical Staff Time Per Calendar Month Completed 12/17/2020 88168 Chronic Care Management Services Ea Addl 20 Min Completed 11/02/2020 90312 Chronic Care MGMT 20 Mins Clinical Staff Time Per Calendar Month Completed 11/02/2020 24705 Chronic Care Management Services Ea Addl 20 Min Completed 10/21/2020 838847890 Bone Mineral Density Test [facility] 10/21/2020 65442821 Mammogram Completed 09/16/2020 12781 Therapeutic Injection Completed 09/15/2020 47475 Chronic Care MGMT 20 Mins Clinical Staff Time Per Calendar Month Completed 10/17/2019 12196255 Mammogram Completed 03/26/2018 390597815 Bone Mineral Density Test [facility] 03/26/2018 97525597 Mammogram Completed 03/27/2017 71381698 Mammogram Completed 03/24/2016 373287234 Bone Mineral Density Test [facility]ple [facility] 03/24/2016 48379603 Mammogram Completed 03/12/2015 14080771 Mammogram Completed 03/06/2014 471970645 Bone Mineral Density Test [facility] 03/06/2014 71835025 Mammogram Completed 02/11/2013 73674457 Mammogram Completed 02/10/2012 75079046 Mammogram Completed 07/14/2011 24971487 Colonoscopy Completed 02/16/2011 658512039 Bone Mineral Density Test [facility]ple [facility] 02/04/2011 75742976 Mammogram Completed 02/03/2010 23965534 Mammogram Completed 01/30/2009 361144798 Bone Mineral Density Test Comple [facility] 10/05/2007 50785881 Colonoscopy Completed Medical Devices Description No Information Available Encounters Type Date Location Provider Dx Diagnosis Office Visit 02/02/2021 11:00a [facility] Agus Garcia M.D. M19.90 Unspecified [...] disorder Z23 Encounter for immunization Z79.899 Other [facility] (current[facility] dr ug therapy H40.9 Unspecified glaucoma G47.00 Insomnia, unspecified [...] immunization Alia Garcia M.D. 02/02/2021 Z79.899 Other [employer] (current) drug t herapy Alia Garcia M.D. [...] hypertension Alia Garcia M.D. 09/07/2020 Z79.899 Other prison (current) drug t herapy Alia Garcia M.D. 09/07/2020 Z79.899 Other [employer] (current) drug t herapy Lab Schedule 09/07/2020 I10 Essential (primary) hypertension Alia Garcia M.D. 09/07/2020 I10 Essential (primary) hypertension Lab Schedule Plan of Treatment Future Appointment(s):* 03/23/2021 1:30 pm - Lab Schedule at [facility] * 08/03/2021 9:00 am - Alia Garcia M.D. at [facility] * 03/23/2021 1:40 pm - Nurse Schedule at [facility] 02/02/2021 - Alia Garcia M.D.* [...] Z23 Encounter for immunization * Z79.899 Other [employer] (current) drug therapy * H40.9 Unspecified glaucoma [...] ca of the face. Following through at [facility]. Health Maintenance. paperwork is reviewed. She is UTD with [...] ORGAN PROLA PSE. Created [facility] [address] [place], [place] [id number] [phone]
--- OUTSIDE RECORDS SUMMARY | 2021-03-11 07:09 | CCD | Continuity of Care Document ---
Author Author Hiral POTTER Organization Unknown Address [address] [place] [address] Phone [phone] Care Team Providers Care Patient Care Representative Name Role Phone Alia Garcia MD [facility] [phone] Problems Description No Information Available Social History Type Date Description Comments Sex Unknown Tobacco Use Start: Unknown Never Smoked Cigarettes Smoking Status Reviewed: 02/17/21 Never Smoked Cigarettes ETOH Use Non-smoker, Occasional [...] N PART A. Cervical, Endocervical, ThinPrep Pap (Hide Inspector And Sorter) CYTOLOGY HX-------- Other Information: Post-menopausal FINAL DIAGNOSIS---- INTERPRETATION: Negative for Intraepithelial Lesion or Malignancy. SPECIMEN ADEQUACY:Satisfactory for evaluation. Endocervical/transformation zone component present. ADDITIONAL FINDINGS:Atrophic pattern. Procedures Date Code Description Status 03/04/2021 58487 Neurostimulator Pulse Generator Brain/Spinal Cord First Hour Completed 03/04/2021 84612 Fluoroscopic guidanc e for needle placement (eg. Biopsy, aspiratio Completed 03/04/2021 27943 Insertion/Replacemen t Peripheral Neurostimulator Pulse Generator Completed 03/04/2021 48150 Implant Neuroelectrodes,Sacral N erve Completed 02/17/2021 44384 Office/Outpatient [facility] 6 0-74 Minutes Completed Medical Devices Description No Information Available Encounters Type Date Location Provider Dx Diagnosis Office Visit 02/17/2021 9:15a [facility] superintendent power Lizeth Potter MD R1 5.9 Full incontinence of feces R15.2 Fecal urgency N32.81 Overactive bladder N39.41 Urge incontinence N81.11 Cystocele, midline N81.2 Incomplete uterovaginal prol apse 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 superintendent power * 03/11/2021 10:30 am - Lizeth Potter MD at [facility] * 03/10/2021 9:00 am - Lizeth Potter MD at [facility] superintendent power * 02/18/2022 9:45 am - Lizeth Potter MD at [facility] superintendent power 02/17/2021 - Lizeth Potter MD* R15.9 Full incontinence of feces * R15.2 Fecal urgency * N32.81 Overactive bladder * N39.41 Urge incontinence * N81.11 Cystocele, midline * N81.2 Incomplete uterovaginal prolapse * N95.2 Postmenopausal atrophic vaginitis * Z91.89 Other specified personal risk factors, not elsewhere classified Functional Status Description No Information Available Mental Status Description No Information Available Referrals Description No Information Available
--- OUTSIDE RECORDS SUMMARY | 2021-03-11 07:10 | CCD | Continuity of Care Document ---
Author Author Hiral POTTER Organization Unknown Address [address] [place] [address] Phone [phone] Care Team Providers Care Gem Carver Name Role Phone Alia Garcia MD [facility] [phone] Problems Description No Information Available Social History Type Date Description Comments Sex Unknown Allergies and adverse reactions Description No Known [...] BSA (Body Surface Area) 1.49 m2 Results Description No Information Available Procedures Description No Information Available Medical Devices Description No Information Available Encounters Description No Information Available Assessments Description No Information Available Plan of Treatment Future Appointment(s):* 02/18/2022 9:45 am - Lizeth Potter MD at [facility] site safety representative Functional Status Description No Information Available Mental Status Description No Information Available Referrals Description No Information Available
--- OUTSIDE RECORDS SUMMARY | 2021-03-11 07:10 | CCD | Continuity of Care Document ---
Author Author Hiral Garcia M.D. Organization Unknown Address [address] [facility] [address] [place] [address] Phone [phone] Care Team Providers Care Warehouse Worker 2Nd Shift Name Role Phone Tavares Gibbs MD AUTM [phone] Robin Bennett MD AUTM [phone] Alia Garcia MD AUTM [phone] Problems Active Problems Provider Date Embolism from [...] ER 1-2x/day as needed Dandre Kendall 02/02/2021 Vitamin D3 25mcg (1000 Ut) Capsule s 1 by mouth every day Alia Garcia M.D. 02/03/20 21 Calcium 600+D [id number]-[id number] Table ts 1 by mouth every day [...] inject under the skin every 6 months 1maxwell M81.0 Alia Garcia M.D. 08/01/2016 Right Breast Prosthesis as directed dx:c50.919 1unDAT Estrada 05/21/[facility] dx c50.919 6unDAT Estrada 06/23/2011 Preservision Areds Capsules 1 by mouth every day 30caps Unknown Zinc 30mg Capsules 1 by mo uth every day Unknown Dorzolamide HCL 2% Solution both eyes 1 drop twice a day Unknown Medications Administered in Office Medication SIG Qnty Indications Ordering Provider Date Prolia (denosumab) 60mg,SC injection, ND C#[id number] Injection Nurse Schedul e 09/16/2020 Therapeutic Injection Injection Nurse Schedule 09/16/2020 Covid-19 vaccine, Unspecified Inj ection Unknown 06/19/2020 Covid-19 vaccine, Unspecified Inj ection Unknown 05/22/2020 Prolia (denosumab) 60mg,SC injection, ND C#[id number] Injection Nurse Schedul e 03/16/2020 Therapeutic Injection Injection Nurse Schedule 03/16/2020 Administration Of Flu Vaccine Inj ection Alia Garcia M.D. 01/28/20 20 Prolia (denosumab) 60mg,SC injection, ND C#[id number] Injection Tori Hill er, ANP 09/10/2019 Therapeutic Injection Injection Nurse Schedule 09/10/2019 Administration Of Flu Vaccine Inj ection Tori Finch, [facility] 02/20/2019 Prolia (denosumab) 60mg,SC injection, ND C#[id number] Injection Tori Hill , [facility] 11/14/2018 Prolia (denosumab) 60mg,SC injection, ND C#[id number] Injection Nurse Sched e 11/14/2018 Chemotherpy Admin Subcutaneous/Im Non-Ho rmonal Anti-Neoplastic Injection Tori denise, [facility] 11/14/2018 Chemotherpy Admin Subcutaneous/Im Non-Ho rmonal Anti-Neoplastic Injection Nurse [facility] 11/14/2018 Prolia (denosumab) 60mg,SC injection, ND C#[id number] Injection Nurse Sched e 03/28/2018 Chemotherpy Admin Subcutaneous/Im Non-Ho rmonal Anti-Neoplastic Injection Nurse [facility] 03/28/2018 Administration Of Flu Vaccine Inj ection Tori Finch, [facility] 02/12/2018 Prolia (denosumab) 60mg,SC injection, ND C#[id number] Injection Tori Hill , ANP 09/12/2017 Chemotherpy Admin Subcutaneous/Im Non-Ho rmonal Anti-Neoplastic Injection Tori denise, ANP 09/12/2017 Prolia (denosumab) 60mg,SC injection, ND C#[id number] Injection Nurse Sched e 03/08/2017 Chemotherpy Admin Subcutaneous/Im Non-Ho rmonal Anti-Neoplastic Injection Nurse [facility] amado 03/08/2017 Administration Of Flu Vaccine Inj annaleeion Hu James MD 02/07/2017 Chemotherpy Admin Subcutaneous/Im Non-Ho rmonal Anti-Neoplastic Injection Nurse [facility] am[place] 04/13/2016 Administration Of Flu Vaccine Inj ection Tori Finch, ANP 02/16/2016 Chemotherpy Admin Subcutaneous/Im Non-Ho rmonal Anti-Neoplastic Injection Nurse Rodger fischer 03/27/2015 Administration Of Flu Vaccine Inj ection Hu James MD 02/04/2015 Chemotherpy Admin Subcutaneous/Im Non-Ho rmonal Anti-Neoplastic Injection Nurse Rodger fischer 09/25/2014 Chemotherpy Admin Subcutaneous/Im Non-Ho rmonal Anti-Neoplastic Injection Nurse [facility] am[place] 03/27/2014 Administration Of Flu Vaccine Inj ection Tori Finch, ANP 02/11/2014 Administration Of Flu Vaccine Inj annaleeion [...] 03/03/2005 Administration Of Flu Vaccine Inj ection Toricarina Finch, ANP 01/26/2004 Immunizations CPT Code Status Date Vaccine Lot # [id number] Given 02/02/2021 Influenza Vaccin e Quadrivalent Preser/Antibiotic Free Im Use [id number] 85311 Given 01/28/2020 Influenza Vaccin e Quadrivalent Preser/Antibiotic Free Im Use [id number] 03098 Given 02/20/2019 Influenza Vaccin e Quadrivalent Preser/Antibiotic Free Im Use 528898 38365 Given 03/16/2018 Shingrix Zoster Vaccine (HZV), Recombinant, Subunit, Adjuvanted 57628 Given 02/12/2018 Influenza Virus Vaccine, Quadrivalent ([id number]), Derived From 1 Given 08/19/2017 Shingrix 65749 Given 08/19/2017 Shingrix Zoster Vaccine (HZV), Recombinant, Subunit, Adjuvanted 96380 Given 02/07/2017 Influenza Vaccin e Quadrivalent Preser/Antibiotic Free Im Use [id number] U-PneuC Given 02/19/2016 Prevnar 13 Q2037 Given 02/16/2016 Fluvirin Virus Vaccine 01379 01 Q2037 Given 02/04/2015 Fluvirin Virus Vaccine 15339 01 68865 Given 02/11/2014 Pneumovax 23 [id number] Q2037 Given 02/11/2014 Fluvirin Virus Vaccine 01346 21 54077 Given 08/12/2013 Adacel- Tetanus Diphtheria P ertussis [id number] Q2037 Given 02/04/2013 Fluvirin Virus Vaccine Q2037 Given 01/19/2012 Fluvirin Virus Vaccine Q2037 Given 02/28/2011 Fluvirin Virus Vaccine 74412 Given 02/15/2010 Influenza Virus Vaccine 48959 Given 02/03/2009 Influenza Virus Vaccine 97528 Given 01/23/2008 Influenza Virus Vaccine 98155 Given 02/07/2007 Influenza Virus Vaccine 81635 Given 08/16/2006 Zoster Vaccine 97367 Given 03/21/2006 Influenza Virus Vaccine 05312 Given 03/03/2005 Influenza Virus Vaccine 54245 Given 01/26/2004 Influenza Virus Vaccine Vital Signs Date Vital Result Comment 02/02/2021 10:51am BP Systolic 130 mmHg BP Diastolic 74 mmHg Heart Rate 86 /min Height 60 inches 5'0" Weight 120.12 lb O2 % BldC Oximetry 97 % RM Air BMI (Body Mass Index) 23.5 kg/m2 07/29/2020 10:34am BP Systolic 138 mmHg RT Arm BP Diastolic 70 mmHg RT Arm Heart Rate 60 /min Height 60 inches 5'0" Weight 121.00 lb BMI (Body Mass Index) 23.6 kg/m2 Results Test Acquired Date Facility Test Result H/L Range Note Ua Dipstick Only 02/03/2021 [facility] Agronomy Supervisor: [place] [address] [phone] Urine Color YELLOW Yellow Urine Appearance SL. HAZY Abnormal Clear Urine PH 6.0 units 5.0 - 9.0 Urine Specific [place] 1.015 1.005 - 1.030 Urine Leukocytes TRACE Abnormal Negative Urine Blood NEGATIVE Negative Urine Protein NEGATIVE Negative -Trace Urine Glucose NEGATIVE mg/dL Negative Urine Nitrite NEGATIVE Negative Urine Ketone NEGATIVE mg/dL Negative Urine Bilirubin NEGATIVE Negative Urine Urobilinogen 0.2 mg/dL 0.2 - 1.0 Laboratory test finding 02/02/2021 [facility] [address] [place] [address] [phone] Phosphorus Level 4.2 mg/dL Normal 2.5-4.9 Complete Blood Count 02/02/2021 [facility] Event branden sanchez Agronomy Supervisor: [place] [address] [phone] WBC 3.4 x10*3/UL Low 4.1 - 10.9 [...] 2.0 - 7.8 Laboratory test finding 02/02/2021 [facility] Data Analyst Report Writer branden valentine Agronomy Supervisor: [place] [address] [phone] Creatine Kinase(CK) 88 U/L 26 - 192 Magnesium 2.2 mg/dL 1.8 - 2.4 Comprehensive Chem Profile 02/02/2021 [facility] C[facility]eno Agronomy Supervisor: [place] [address] [phone] Glucose 94 mg/dL 74 - 99 1 BUN 14 mg/dL 7 - 18 Creatinine [...] mL/min >60 GFR >= 60 mL/min >60 2 Laboratory test finding 02/02/2021 [facility] Raghu valentine Agronomy Supervisor: [place] [address] [phone] Direct Bilirubin 0.2 mg/dL 0.0 - 0.2 Lipid Profile 02/02/2021 [facility] Ezra Agronomy Supervisor: [place] [address] [phone] Cholesterol 184 mg/dL 131 - 200 Triglycerides 85 mg/dL 30 - 150 HDL Cholesterol 99 mg/dL High 35 - 60 LDL (Calculated) 68 CALC 50 - 159 Laboratory test finding 02/02/2021 [facility] Raghu valentine Agronomy Supervisor: [place] [address] [phone] Thyroid Stimulating Hormone 0.57 uIU/mL 0.3 6 - 3.74 Laboratory test finding 02/02/2021 [facility] brand[facility] Preciado Agronomy Supervisor: [place] [address] [phone] Vitamin D 25-Hydroxy 70.1 ng/ml 24.0 - 80.0 3 Basic Metabolic Panel 09/07/2020 [facility] Agronomy Supervisor: [place] [address] [phone] Glucose 93 mg/dL 74 - 99 4 BUN 15 mg/dL 7 - 18 Creatinine 0.7 mg/dL 0.6 - 1.3 Sodium 143 mEq/L 136 - 145 Potassium 4.1 mEq/L 3.5 - 5.1 Chloride 107 mEq/L 98 - 107 Carbon Dioxide 31 mEq/L 21 - 32 Calcium 8.9 mg/dL 8.5 - 10.1 GFR >= 60 mL/min >60 GFR >= 60 mL/min >60 5 Laboratory test finding 09/07/2020 [facility] Agronomy Supervisor: Dr Hu James [place], [place] [id number] [phone] Magnesium 2.2 mg/dL 1.8 - 2.4 Laboratory test finding 09/07/2020 [facility] [address] [place] [address] [phone] Phosphorus Level 3.9 mg/dL Normal 2.5-4.9 1 100-125 mg/dL PRE-DIABET ES/FASTING >126 mg/dL DIABETES/FASTING 2 CHRONIC KIDNEY DISEASE STAGI NG PER NKF STAGE I & II GFR >= 60 NORMAL TO MILDLY DECREASED STAGE III GFR 30-59 MODERATELY DECREASED STAGE IV GFR 15-29 SEVERELY DECREASED STAGE V GFR <15 VERY LITTLE GFR LEFT ESRD GFR <15 ON VIDEO PRODUCTION SPECIALIST 3 This test was performed [facility] tenXer Vitamin D immunoassay kit. Values obtained with different assay methods should not be used interchangeably. 4 100-125 mg/dL PRE-DIABET ES/FASTING >126 mg/dL DIABETES/FASTING 5 CHRONIC KIDNEY DISEASE STAGI NG PER NKF STAGE I & II GFR >= 60 NORMAL TO MILDLY DECREASED STAGE III GFR 30-59 MODERATELY DECREASED STAGE IV GFR 15-29 SEVERELY DECREASED STAGE V GFR <15 VERY LITTLE GFR LEFT ESRD GFR <15 ON VIDEO PRODUCTION SPECIALIST Procedures Date Code Description Status 12/17/2020 92190 Chronic Care Management Services Ea Addl 20 Min Completed 12/17/2020 19418 Chronic Care MGMT 20 Mins Clinical Staff Time Per Calendar Month Completed 11/02/2020 90677 Chronic Care MGMT 20 Mins Clinical Staff Time Per Calendar Month Completed 11/02/2020 31155 Chronic Care Management Services Ea Addl 20 Min Completed 10/21/2020 592121904 Bone Mineral Density Test Comple celestina 10/21/2020 99807231 Mammogram Completed 09/16/2020 53985 Therapeutic Injection Completed 09/15/2020 99444 Chronic Care MGMT 20 Mins Clinical Staff Time Per Calendar Month Completed 08/13/2020 43330 Chronic Care Management Services Ea Addl 20 Min Completed 08/13/2020 22869 Chronic Care MGMT 20 Mins Clinical Staff Time Per Calendar Month Completed 10/17/2019 88711426 Mammogram Completed 03/26/2018 613191790 Bone Mineral Density Test Comple [facility] 03/26/2018 85138791 Mammogram Completed 03/27/2017 64931402 Mammogram Completed 03/24/2016 182601448 Bone Mineral Density Test Comple [facility] 03/24/2016 10074331 Mammogram Completed 03/12/2015 88614299 Mammogram Completed 03/06/2014 233620146 Bone Mineral Density Test Comple [facility] 03/06/2014 76561600 Mammogram Completed 02/11/2013 61707845 Mammogram Completed 02/10/2012 43900408 Mammogram Completed 07/14/2011 40947575 Colonoscopy Completed 02/16/2011 732498780 Bone Mineral Density Test Comple [facility] 02/04/2011 71254995 Mammogram Completed 02/03/2010 86553351 Mammogram Completed 01/30/2009 348818869 Bone Mineral Density Test Comple [facility] 10/05/2007 11300687 Colonoscopy Completed Medical Devices Description No Information Available Encounters Description No Information Available Assessments Date Code Description Provider 02/02/2021 E78.00 Pure hypercholesterolemia, unspe cified Alia Garcia M.D. 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 02/02/2021 G25.81 Restless legs syndrome Alia Garcia M.D. 02/02/2021 G47.00 Insomnia, unspecified Alia pascal M.D. 02/02/2021 N81.10 Cystocele, unspecified Alia Garcia M.D. 02/02/2021 M19.90 Unspecified osteoarthritis, unsp ecified site Alia Garcia M.D. 02/02/2021 H40.9 Unspecified glaucoma Alia Chapa M.D. 02/02/2021 M81.0 Age-related osteoporosis without current pathological fracture Alia Garcia M.D. 02/02/2021 K21.9 Gastro-esophageal reflux disease without esophagitis Alia Garcia M.D. 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 12/17/2020 K21.9 Gastro-esophageal reflux [...] hypertension Alia Garcia M.D. 09/07/2020 Z79.899 Other skilled nursing (current) drug t herapy Alia Garcia M.D. 09/07/2020 Z79.899 Other ferry terminal agent (current) drug t herapy Lab Schedule 09/07/2020 I10 Essential (primary) hypertension Alia Garcia M.D. 09/07/2020 I10 Essential (primary) hypertension Lab Schedule 08/13/2020 E78.00 Pure hypercholesterolemia, unspe cified Alia Garcia M.D. 08/13/2020 G25.81 Restless legs syndrome Alia Garcia M.D. 08/13/2020 K21.9 Gastro-esophageal reflux disease without esophagitis Alia Garcia M.D. 08/13/2020 I10 Essential (primary) hypertension Alia Garcia M.D. Plan of Treatment Future Appointment(s):* 08/03/2021 9:00 am - Alia Garcia M.D. at [facility] * 03/23/2021 1:40 pm - Nurse Schedule at [facility] 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 Following through at [facility]. Health Maintenance. paperwork is reviewed. She is [...]
--- OUTSIDE RECORDS SUMMARY | 2021-03-11 07:10 | CCD | Continuity of Care Document ---
Author Author Hiral WATT F.N.P. Organization Unknown Address [address] [place] [address] Phone [phone] Care Team Providers Care Valving Machine Operator Name Role Phone Tori Finch DAT AUTM [phone] Problems Description No Information Available Social History Type Date Description Comments Sex Unknown ETOH Use Consumes 1 glass of wine per day Tobacco Use Start: Unknown Patient has never smoked Sun Exposure moderate amount of sun exposure Sun Exposure Has never used tanning bed Sun Exposure Has never experienced blistering from sunburns Sun Exposure Uses 15-30 SPF Allergies and adverse reactions Active Allergies Criticality Reaction | Severity Comments Date Latex Unable to assess criticality 03/27/2019 IVP Dye Unable to assess criticality 03/27/2019 Medications Active Medications SIG Qnty Indications Ordering Provide r Date Calcium + D Unknown Centrum Silver 50+Women Unknown 0 Savision Unknown Tylenol Unknown Simvastatin Unknown Alphagan P Unknown Lumigan Unknown Prolia Unknown Ropinirole HCL ER Unknown /0 000 Immunizations Description No Information Available Vital Signs Date Vital Result Comment 03/24/2020 1:38pm Weight 115.00 lb Body Temperature 98.4 F Respiratory Rate 17 /min 04/15/2019 11:31am BP Systolic 120 mmHg BP Diastolic 60 mmHg Results Test Acquired Date Facility Test Result H/L Range Note BXDX Pathology 01/19/2021 [facility] Icd9 Code ICD9 Code: D04.3 <SEE NOTE> 1, 2 PDFReport SEE IMAGE 1 LN2 at next visit 2 ICD9 Code: D04.39 Protocol: shave Clinical Text: AK VS. 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 Gross Text: The specimen grossly was oval shaped, measuring 5 x 4 mm. on the surface and 1 mm. deep. It was divided into 2 sections on the long axis. All of the tissue was submitted for processing. The specimen appeared to be friable. Microscopic Description: The epidermis is acanthotic and shows full thickness atypia, the surface is crusted and the cutis is inflamed. CPT: 32322*1 Procedures Date Code Description Status 01/19/2021 29746 Office/Outpatient Established Mo d MDM 30-39 Min Completed 01/19/2021 49720 Shave Biopsy Of Skin, Single Les ion Completed Medical Devices Description No Information Available Encounters Type Date Location Provider Dx Diagnosis Office Visit 01/19/2021 1:00p Main Office Carrie Watt, F.N.P. D48.5 Neoplasm of uncertain behavior of skin Assessments Date Code Description Provider 01/19/2021 D48.5 Neoplasm of uncertain behavior o f skin [facility] 01/19/2021 D48.5 Neoplasm of uncertain behavior o f skin Carrie Gandhi'anita, F.N.P. Plan of Treatment Future Appointment(s):* 02/18/2021 10:30 am - Carrie Watt, F.N.P. at Main Office * 03/24/2021 12:45 pm - Carrie Watt, F.N.P. at Main Office 01/19/2021 - Carrie Watt, F.N.P.* D48.5 Neoplasm of uncertain behavior of skin* Comments:* Shave biopsy today, R cheek - AK vs SCC in situDiscussed risks of biopsy to include scarring, infection, need for further treatment. Alternative to the biopsy is watchful waitingInformed consent for biopsy signed and photographs takenVerified , name and sites. The area was prepped with alcohol and anesthesized with 1% Lidocaine with Epinephrine. The wound was dressed with band-aid and Vaseline. Patient tolerated well with no complications. Specimen sent to pathology Wound care instructions given Will call with pathology when availableInstructed to call with any problems Functional Status Description No Information Available Mental Status Description No Information Available Referrals Description No Information Available"
--- OUTSIDE RECORDS SUMMARY | 2021-03-11 07:10 | CCD | Continuity of Care Document ---
Author Author Hiral Garcia M.D. Organization Unknown Address [address] [facility] [address] [place] [address] Phone [phone] Care Team Providers Care Therapist Occupational Name Role Phone Tavares Gibbs MD AUTM [phone] Robin Bennett MD AUTM [phone] Alia Garcia MD AUTM [phone] Problems Active Problems Provider Date Embolism from [...] Alia Garcia M.D. 02/03/20 21 Calcium 600+D [id number] Table ts 1 by mouth every day [...] directed dx:c50.919 1unDAT Estrada 05/21/2015 Mastectomy Bra Misc as directed dx c50.919 6unDAT Estrada 06/23/2011 [...] 02/03/20 21 Prolia (denosumab) 60mg,SC injection, ND C#[id number] Injection Nurse Schedul e 09/16/2020 Therapeutic Injection Injection Nurse Schedule 09/16/2020 Covid-19 vaccine, Unspecified Inj ection Unknown 06/19/2020 Covid-19 vaccine, Unspecified Inj ection Unknown 05/22/2020 Prolia (denosumab) 60mg,SC injection, ND C#[id number] Injection Nurse Schedul e 03/16/2020 Therapeutic Injection Injection Nurse Schedule 03/16/2020 Administration Of Flu Vaccine Inj ection Alia Garcia M.D. 01/28/20 20 Prolia (denosumab) 60mg,SC injection, ND C#[id number] Injection Tori Hill er, ANP 09/10/2019 Therapeutic Injection Injection Nurse Schedule 09/10/2019 Administration Of Flu Vaccine Inj ection Tori Finch, [facility] 02/20/2019 Prolia (denosumab) 60mg,SC injection, ND C#[id number] Injection Tori Hill , ANP 11/14/2018 Prolia (denosumab) 60mg,SC injection, ND C#[id number] Injection Nurse Sched e 11/14/2018 Chemotherpy Admin Subcutaneous/Im Non-Ho rmonal Anti-Neoplastic Injection Tori denise, [facility] 11/14/2018 Chemotherpy Admin Subcutaneous/Im Non-Ho rmonal Anti-Neoplastic Injection Nurse [facility] 11/14/2018 Prolia (denosumab) 60mg,SC injection, ND C#[id number] Injection Nurse Sched e 03/28/2018 Chemotherpy Admin Subcutaneous/Im Non-Ho rmonal Anti-Neoplastic Injection Nurse [facility] 03/28/2018 Administration Of Flu Vaccine Inj ection Tori Finch, [facility] 02/12/2018 Prolia (denosumab) 60mg,SC injection, ND C#[id number] Injection Tori Hill , ANP 09/12/2017 Chemotherpy Admin Subcutaneous/Im Non-Ho rmonal Anti-Neoplastic Injection Tori denise, ANP 09/12/2017 Prolia (denosumab) 60mg,SC injection, [place] C#[id number] Injection Nurse Sched e 03/08/2017 Chemotherpy Admin Subcutaneous/Im Non-Ho rmonal Anti-Neoplastic Injection Nurse [facility] 03/08/2017 Administration Of Flu Vaccine Inj raz James MD 02/07/2017 Chemotherpy Admin Subcutaneous/Im Non-Ho rmonal Anti-Neoplastic Injection Nurse [facility] 04/13/2016 Administration Of Flu Vaccine Inj ection Tori Finch, [facility] 02/16/2016 Chemotherpy Admin Subcutaneous/Im Non-Ho rmonal Anti-Neoplastic Injection Nurse [facility] 03/27/2015 Administration Of Flu Vaccine Inj annaleeion Hu James MD 02/04/2015 Chemotherpy Admin Subcutaneous/Im Non-Ho rmonal Anti-Neoplastic Injection Nurse Rodger fischer 09/25/2014 Chemotherpy Admin Subcutaneous/Im Non-Ho rmonal Anti-Neoplastic Injection Nurse [facility]ado 03/27/2014 Administration Of Flu Vaccine Inj annaleeion Tori Finch, [facility] 02/11/2014 Administration Of Flu Vaccine Inj raz James MD 02/04/2013 Administration Of Flu Vaccine [...] CPT Code Status Date Vaccine Lot # 64561 Given 02/02/2021 Influenza Vaccin e Quadrivalent Preser/Antibiotic Free Im Use [id number] 58077 Given 01/28/2020 Influenza Vaccin e Quadrivalent Preser/Antibiotic Free Im Use 848939 40673 Given 02/20/2019 Influenza Vaccin e Quadrivalent Preser/Antibiotic Free Im Use 338238 24909 Given 03/16/2018 Shingrix Zoster Vaccine (HZV), Recombinant, Subunit, Adjuvanted 81516 Given 02/12/2018 Influenza Virus Vaccine, Quadrivalent (Cciiv4), Derived From 9 Given 08/19/2017 Shingrix 86361 Given 08/19/2017 Shingrix Zoster Vaccine (HZV), Recombinant, Subunit, Adjuvanted 76005 Given 02/07/2017 Influenza Vaccin e Quadrivalent Preser/Antibiotic Free Im Use 609144 U-PneuC Given 02/19/2016 Prevnar 13 Q2037 Given 02/16/2016 Fluvirin Virus Vaccine 77009 01 Q2037 Given 02/04/2015 Fluvirin Virus Vaccine 25323 01 43703 Given 02/11/2014 Pneumovax 23 [id number] Q2037 Given 02/11/2014 Fluvirin Virus Vaccine 27550 21 03448 Given 08/12/2013 Adacel- Tetanus Diphtheria P ertussis [id number] Q2037 Given 02/04/2013 Fluvirin Virus Vaccine Q2037 Given 01/19/2012 Fluvirin Virus Vaccine Q2037 Given 02/28/2011 Fluvirin Virus Vaccine 52420 Given 02/15/2010 Influenza Virus Vaccine 75079 Given 02/03/2009 Influenza Virus Vaccine 23391 Given 01/23/2008 Influenza Virus Vaccine 56512 Given 02/07/2007 Influenza Virus Vaccine 48332 Given 08/16/2006 Zoster Vaccine 32267 Given 03/21/2006 Influenza Virus Vaccine 17667 Given 03/03/2005 Influenza Virus Vaccine 62084 Given 01/26/2004 Influenza Virus Vaccine Vital Signs [...] Result H/L Range Note Coronavirus 2019 Nasopharygeal 02/27/2021 [facility] [address] [place] [address] [phone] Coronavirus 2019 Nasopharygeal ASSAY INFORMATIO <SEE N OTE> 1 Ua Dipstick Only 02/03/2021 [facility] Security Solutions Architect: [place] [address] [phone] Urine Color YELLOW Yellow Urine Appearance SL. HAZY Abnormal Clear Urine PH 6.0 units 5.0 - 9.0 Urine Specific [place] 1.015 1.005 - 1.030 Urine Leukocytes TRACE Abnormal Negative Urine Blood NEGATIVE Negative Urine Protein NEGATIVE Negative -Trace Urine Glucose NEGATIVE mg/dL Negative Urine Nitrite NEGATIVE Negative Urine Ketone NEGATIVE mg/dL Negative Urine Bilirubin NEGATIVE Negative Urine Urobilinogen 0.2 mg/dL 0.2 - 1.0 Laboratory test finding 02/02/2021 [facility] [address] [place] [address] [phone] Phosphorus Level 4.2 mg/dL Normal 2.5-4.9 Complete Blood Count 02/02/2021 [facility] Security Solutions Architect: Dr Hu James [place] [id number] [phone] WBC 3.4 x10*3/UL Low 4.1 - 10.9 [...] 2.0 - 7.8 Laboratory test finding 02/02/2021 [facility] Security Solutions Architect: [place] [address] [phone] Creatine Kinase(CK) 88 U/L 26 - 192 Magnesium 2.2 mg/dL 1.8 - 2.4 Comprehensive Chem Profile 02/02/2021 [facility] Security Solutions Architect: [place] [address] [phone] Glucose 94 mg/dL 74 - 99 2 BUN 14 mg/dL 7 - 18 Creatinine [...] mL/min >60 GFR >= 60 mL/min >60 3 Laboratory test finding 02/02/2021 [facility] Security Solutions Architect: [place] [address] [phone] Direct Bilirubin 0.2 mg/dL 0.0 - 0.2 Lipid Profile 02/02/2021 [facility] , Security Solutions Architect: [place] [address] [phone] Cholesterol 184 mg/dL 131 - 200 Triglycerides 85 mg/dL 30 - 150 HDL Cholesterol 99 mg/dL High 35 - 60 LDL (Calculated) 68 CALC 50 - 159 Laboratory test finding 02/02/2021 [facility] Security Solutions Architect: [place] [address] [phone] Thyroid Stimulating Hormone 0.57 uIU/mL 0.3 6 - 3.74 Laboratory test finding 02/02/2021 [facility] Security Solutions Architect: [place] [address] [phone] Vitamin D 25-Hydroxy 70.1 ng/ml 24.0 - 80.0 4 Basic Metabolic Panel 09/07/2020 [facility] Security Solutions Architect: [place] [address] [phone] Glucose 93 mg/dL 74 - 99 5 BUN 15 mg/dL 7 - 18 Creatinine 0.7 mg/dL 0.6 - 1.3 Sodium 143 mEq/L 136 - 145 Potassium 4.1 mEq/L 3.5 - 5.1 Chloride 107 mEq/L 98 - 107 Carbon Dioxide 31 mEq/L 21 - 32 Calcium 8.9 mg/dL 8.5 - 10.1 GFR >= 60 mL/min >60 GFR >= 60 mL/min >60 6 Laboratory test finding 09/07/2020 [facility] Security Solutions Architect: [place] [address] [phone] Magnesium 2.2 mg/dL 1.8 - 2.4 Laboratory test finding 09/07/2020 [facility] [address] [place] [address] [phone] Phosphorus Level 3.9 mg/dL Normal 2.5-4.9 1 ASSAY INFORMATION: Real Time RT-PCR NOTE: The COVID-19 assay has been cleared by the U.S. Food and Drug Administration under the Emergency Use Authorization (EUA). [facility] and [facility] are designated as high complexity laboratories by the Clinical Laboratory Improvement Amendments of 1988(CLIA) and are qualified to perform this test. Not Detected 2 100-125 mg/dL PRE-DIABET ES/FASTING >126 mg/dL DIABETES/FASTING 3 CHRONIC KIDNEY DISEASE STAGI NG PER NKF STAGE I & II GFR >= 60 NORMAL TO MILDLY DECREASED STAGE III GFR 30-59 MODERATELY DECREASED STAGE IV GFR 15-29 SEVERELY DECREASED STAGE V GFR <15 VERY LITTLE GFR LEFT ESRD GFR <15 ON PRORATION CLERK 4 This test was performed [employer] Vitamin D immunoassay kit. Values obtained with different assay methods should not be used interchangeably. 5 100-125 mg/dL PRE-DIABET ES/FASTING >126 mg/dL DIABETES/FASTING 6 CHRONIC KIDNEY DISEASE STAGI NG PER NKF STAGE I & II GFR >= 60 NORMAL TO MILDLY DECREASED STAGE III GFR 30-59 MODERATELY DECREASED STAGE IV GFR 15-29 SEVERELY DECREASED STAGE V GFR <15 VERY LITTLE GFR LEFT ESRD GFR <15 ON PRORATION CLERK Procedures Date Code Description Status 02/02/2021 90737 Office/Outpatient Established Mo d MDM 30-39 Min Completed 01/19/2021 19246 Chronic Care MGMT 20 Mins Clinical Staff Time Per Calendar Month Completed 01/19/2021 01488 Chronic Care Management Services Ea Addl 20 Min Completed 12/17/2020 85307 Chronic Care MGMT 20 Mins Clinical Staff Time Per Calendar Month Completed 12/17/2020 68752 Chronic Care Management Services Ea Addl 20 Min Completed 11/02/2020 25561 Chronic Care MGMT 20 Mins Clinical Staff Time Per Calendar Month Completed 11/02/2020 00017 Chronic Care Management Services Ea Addl 20 Min Completed 10/21/2020 338713663 Bone Mineral Density Test [facility] 10/21/2020 04169433 Mammogram Completed 09/16/2020 74974 Therapeutic Injection Completed 09/15/2020 29919 Chronic Care MGMT 20 Mins Clinical Staff Time Per Calendar Month Completed 10/17/2019 50514174 Mammogram Completed 03/26/2018 709957920 Bone Mineral Density Test [facility] 03/26/2018 97283581 Mammogram Completed 03/27/2017 74255095 Mammogram Completed 03/24/2016 561123345 Bone Mineral Density Test [facility] 03/24/2016 63824350 Mammogram Completed 03/12/2015 93039124 Mammogram Completed 03/06/2014 355610477 Bone Mineral Density Test [facility] 03/06/2014 82069578 Mammogram Completed 02/11/2013 03089453 Mammogram Completed 02/10/2012 73917530 Mammogram Completed 07/14/2011 46770941 Colonoscopy Completed 02/16/2011 982037286 Bone Mineral Density Test [facility] 02/04/2011 19229583 Mammogram Completed 02/03/2010 23994796 Mammogram Completed 01/30/2009 045931838 Bone Mineral Density Test [facility] 10/05/2007 99476276 Colonoscopy Completed Medical Devices Description No Information Available Encounters Type Date Location Provider Dx Diagnosis Office Visit 02/02/2021 11:00a [facility] Agus Garcia M.D. 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 02/02/2021 Z79.899 Other [facility] (current) drug t herapy Alia Garcia M.D. [...] hypertension Alia Garcia M.D. 09/07/2020 Z79.899 Other [facility] (current) drug t herapy Alia Garcia M.D. 09/07/2020 Z79.899 Other [facility] (current) drug t herapy Lab Schedule 09/07/2020 I10 Essential (primary) hypertension Alia Garcia M.D. 09/07/2020 I10 Essential (primary) hypertension Lab Schedule Plan of Treatment Future Appointment(s):* 03/01/2021 3:30 pm - Alia Garcia M.D. at [facility] * 03/23/2021 1:30 pm - Lab Schedule at [facility] * 08/03/2021 9:00 am - Alia Garcia M.D. at [facility] * 03/23/2021 1:40 pm - [facility] 02/02/2021 - Alia Garcia M.D.* M19.90 [...] Z23 Encounter for immunization * Z79.899 Other [facility] (current) drug therapy * H40.9 Unspecified glaucoma [...] ca of the face. Following through at [facility]. Health Maintenance. MW paperwork is reviewed. She [...] ORGAN PROLA PSE. Created [facility] [address] [place] [address] [phone]
--- OUTSIDE RECORDS SUMMARY | 2021-03-11 07:10 | CCD | Continuity of Care Document ---
Author Author Lab Schedule, Hiral Hadley Organization Unknown Address [address] [address] Phone Unavailable Care Team Providers Care Customer Supply Chain Analyst Name Role Phone [place], Tavares Hawthorne MD AUTM [phone] Robin Bennett MD AUTM [phone] Alia Garcia MD AUTM [phone] Problems Active Problems Provider Date Embolism from [...] mouth every day Alia Garcia M.D. 02/03/20 Calcium 600+D [id number] Table ts 1 by mouth every day [...] 1units Tori Finch, DAT 05/21/2015 Mastectomy Bra [facility] as directed dx c50.919 6units DAT Smith 06/23/2011 Preservision Areds Capsules 1 by mouth every day 30caps Unknown Zinc 30mg Capsules 1 by mo uth every day Unknown Dorzolamide HCL 2% Solution both eyes 1 drop twice a day Unknown Medications Administered in Office Medication SIG Qnty Indications Ordering Provider Date Prolia (denosumab) 60mg,SC injection, ND C#[id number] Injection Nurse Schedul e 09/16/2020 Therapeutic Injection Injection Nurse Schedule 09/16/2020 Covid-19 vaccine, Unspecified Inj ection Unknown 06/19/2020 Covid-19 vaccine, Unspecified Inj ection Unknown 05/22/2020 Prolia (denosumab) 60mg,SC injection, ND C#[id number] Injection Nurse Schedul e 03/16/2020 Therapeutic Injection Injection Nurse Schedule 03/16/2020 Administration Of Flu Vaccine Inj ection Alia Garcia M.D. 01/28/20 20 Prolia (denosumab) 60mg,SC injection, ND C#[id number] Injection Tori Hill er, ANP 09/10/2019 Therapeutic Injection Injection Nurse Schedule 09/10/2019 Administration Of Flu Vaccine Inj ection Tori Finch, [facility] 02/20/2019 Prolia (denosumab) 60mg,SC injection, ND C#[id number] Injection Tori Hill , ANP 11/14/2018 Prolia (denosumab) 60mg,SC injection, ND C[facility][id number] [facility] Chemotherpy Admin Subcutaneous/Im Non-Ho rmonal Anti-Neoplastic Injection Tori denise, [facility] 11/14/2018 Chemotherpy Admin Subcutaneous/Im Non-Ho rmonal Anti-Neoplastic Injection Nurse [facility] 11/14/2018 Prolia (denosumab) 60mg,SC injection, ND C#[id number] Injection Nurse Sched e 03/28/2018 Chemotherpy Admin Subcutaneous/Im Non-Ho rmonal Anti-Neoplastic Injection Nurse [facility] 03/28/2018 Administration Of Flu Vaccine Inj ection Tori Finch, [facility] 02/12/2018 Prolia (denosumab) 60mg,SC injection, ND C#[id number] Injection Tori Hill , [facility] 09/12/2017 Chemotherpy Admin Subcutaneous/Im Non-Ho rmonal Anti-Neoplastic Injection Tori denise, [facility] 09/12/2017 Prolia (denosumab) 60mg,SC injection, ND C#[id number] Injection Nurse Sched e 03/08/2017 Chemotherpy Admin Subcutaneous/Im Non-Ho rmonal Anti-Neoplastic Injection Nurse [facility] 03/08/2017 Administration Of Flu Vaccine Inj ection Hu James MD 02/07/2017 Chemotherpy Admin Subcutaneous/Im Non-Ho rmonal Anti-Neoplastic Injection Nurse [facility]ado 04/13/2016 Administration Of Flu Vaccine Inj ection Tori Finch, ANP 02/16/2016 Chemotherpy Admin Subcutaneous/Im Non-Ho rmonal Anti-Neoplastic Injection Nurse Rodger fischer 03/27/2015 Administration Of Flu Vaccine Inj ection Hu James MD 02/04/2015 Chemotherpy Admin Subcutaneous/Im Non-Ho rmonal Anti-Neoplastic Injection Nurse Rodger fischer 09/25/2014 Chemotherpy Admin Subcutaneous/Im Non-Ho rmonal Anti-Neoplastic Injection Nurse [facility] 03/27/2014 Administration Of Flu Vaccine Inj ection Tori Finch, [facility] 02/11/2014 Administration Of Flu Vaccine Inj annaleeion [...] CPT Code Status Date Vaccine Lot # [id number] Given 02/02/2021 Influenza Vaccin e Quadrivalent Preser/Antibiotic Free Im Use 224220 38353 Given 01/28/2020 Influenza Vaccin e Quadrivalent Preser/Antibiotic Free Im Use 680138 18120 Given 02/20/2019 Influenza Vaccin e Quadrivalent Preser/Antibiotic Free Im Use 035010 11348 Given 03/16/2018 Shingrix Zoster Vaccine (HZV), Recombinant, Subunit, Adjuvanted 07395 Given 02/12/2018 Influenza Virus Vaccine, Quadrivalent (Cciiv4), Derived From 0 Given 08/19/2017 Shingrix 83683 Given 08/19/2017 Shingrix Zoster Vaccine (HZV), Recombinant, Subunit, Adjuvanted 36711 Given 02/07/2017 Influenza Vaccin e Quadrivalent Preser/Antibiotic Free Im Use 909298 U-PneuC Given 02/19/2016 Prevnar 13 Q2037 Given 02/16/2016 Fluvirin Virus Vaccine 04921 01 Q2037 Given 02/04/2015 Fluvirin Virus Vaccine 38325 01 23642 Given 02/11/2014 Pneumovax 23 [id number] Q2037 Given 02/11/2014 Fluvirin Virus Vaccine 08278 21 95598 Given 08/12/2013 Adacel- Tetanus Diphtheria P ertussis [id number] Q2037 Given 02/04/2013 Fluvirin Virus Vaccine Q2037 Given 01/19/2012 Fluvirin Virus Vaccine Q2037 Given 02/28/2011 Fluvirin Virus Vaccine 96378 Given 02/15/2010 Influenza Virus Vaccine 45998 Given 02/03/2009 Influenza Virus Vaccine 97279 Given 01/23/2008 Influenza Virus Vaccine 74016 Given 02/07/2007 Influenza Virus Vaccine 15617 Given 08/16/2006 Zoster Vaccine 67288 Given 03/21/2006 Influenza Virus Vaccine 16080 Given 03/03/2005 Influenza Virus Vaccine 97530 Given 01/26/2004 Influenza Virus Vaccine Vital Signs [...] Dipstick Only 02/03/2021 [facility] Developmental Specialist: Dr Hu James [place] [id number] [phone] Urine Color YELLOW Yellow Urine Appearance SL. HAZY Abnormal Clear Urine PH 6.0 units 5.0 - 9.0 Urine Specific [place] 1.015 1.005 - 1.030 Urine Leukocytes TRACE Abnormal Negative Urine Blood NEGATIVE Negative Urine Protein NEGATIVE Negative -Trace Urine Glucose NEGATIVE mg/dL Negative Urine Nitrite NEGATIVE Negative Urine Ketone NEGATIVE mg/dL Negative Urine Bilirubin NEGATIVE Negative Urine Urobilinogen 0.2 mg/dL 0.2 - 1.0 Laboratory test finding 02/02/2021 [facility] [address] [place] [address] [phone] Phosphorus Level 4.2 mg/dL Normal 2.5-4.9 Complete Blood Count 02/02/2021 [facility] Developmental Specialist: [place] [address] [phone] WBC 3.4 x10*3/UL Low 4.1 - 10.9 [...] 2.0 - 7.8 Laboratory test finding 02/02/2021 [facility] Developmental Specialist: [place] [address] [phone] Creatine Kinase(CK) 88 U/L 26 - 192 Magnesium 2.2 mg/dL 1.8 - 2.4 Comprehensive Chem Profile 02/02/2021 [facility] Developmental Specialist: [place] [address] [phone] Glucose 94 mg/dL 74 - 99 1 [...] mL/min >60 2 Laboratory test finding 02/02/2021 [facility] Developmental Specialist: Dr Hu James [place] [id number] [phone] Direct Bilirubin 0.2 mg/dL 0.0 - 0.2 Lipid Profile 02/02/2021 [facility] , Developmental Specialist: Dr Hu James [place] [id number] [phone] Cholesterol 184 mg/dL 131 - 200 Triglycerides 85 mg/dL 30 - 150 HDL Cholesterol 99 mg/dL High 35 - 60 LDL (Calculated) 68 CALC 50 - 159 Laboratory test finding 02/02/2021 [facility] Developmental Specialist: Dr Hu [place] [id number] [phone] Thyroid Stimulating Hormone 0.57 uIU/mL 0.3 6 - 3.74 Laboratory test finding 02/02/2021 [facility] branden Preciado Developmental Specialist: [place] [address] [phone] Vitamin D 25-Hydroxy 70.1 ng/ml 24.0 - 80.0 3 Basic Metabolic Panel 09/07/2020 [facility] Developmental Specialist: Dr Hu [place], [place] [id number] [phone] Glucose 93 mg/dL 74 - 99 4 [...] mL/min >60 5 Laboratory test finding 09/07/2020 [facility] Developmental Specialist: [place] [address] [phone] Magnesium 2.2 mg/dL 1.8 - 2.4 Laboratory test finding 09/07/2020 [facility] [address] [place], [place] [address] [phone] Phosphorus Level 3.9 mg/dL Normal 2.5-4.9 1 100-125 mg/dL PRE-DIABET ES/FASTING >126 mg/dL DIABETES/FASTING 2 CHRONIC KIDNEY DISEASE STAGI NG PER NKF STAGE I & II GFR >= 60 NORMAL TO MILDLY DECREASED STAGE III GFR 30-59 MODERATELY DECREASED STAGE IV GFR 15-29 SEVERELY DECREASED STAGE V GFR <15 VERY LITTLE GFR LEFT ESRD GFR <15 ON PHOTOGRAPHY COLORIST 3 This test was performed [facility] Vitamin D immunoassay kit. Values obtained with [...] LITTLE GFR LEFT ESRD GFR <15 ON PHOTOGRAPHY COLORIST Procedures Date Code Description Status 12/17/2020 02586 Chronic Care Management Services Ea Addl 20 Min Completed 12/17/2020 55473 Chronic Care MGMT 20 Mins Clinical Staff Time Per Calendar Month Completed 11/02/2020 71368 Chronic Care MGMT 20 Mins Clinical Staff Time Per Calendar Month Completed 11/02/2020 51553 Chronic Care Management Services Ea Addl 20 Min Completed 10/21/2020 [id number] Bone Mineral Density Test [facility] 10/21/2020 [id number] Mammogram Completed 09/16/2020 38794 Therapeutic Injection Completed 09/15/2020 80154 Chronic Care MGMT 20 Mins Clinical Staff Time Per Calendar Month Completed 08/13/2020 52968 Chronic Care Management Services Ea Addl 20 Min Completed 08/13/2020 35381 Chronic Care MGMT 20 Mins Clinical Staff Time Per Calendar Month Completed 10/17/2019 [id number] Mammogram Completed 03/26/2018 [id number] Bone Mineral Density Test [facility] 03/26/2018 [id number] Mammogram Completed 03/27/2017 [id number] Mammogram Completed 03/24/2016 [id number] Bone Mineral Density Test [facility] 03/24/2016 [id number] Mammogram Completed 03/12/2015 [id number] Mammogram Completed 03/06/2014 195892829 Bone Mineral Density Test [facility] 03/06/2014 [id number] Mammogram Completed 02/11/2013 [id number] Mammogram Completed 02/10/2012 [id number] Mammogram Completed 07/14/2011 [id number] Colonoscopy Completed 02/16/2011 [id number] Bone Mineral Density Test [facility] 02/04/2011 [id number] Mammogram Completed 02/03/2010 [id number] Mammogram Completed 01/30/2009 663473102 Bone Mineral Density Test [facility] 10/05/2007 [id number] Colonoscopy Completed Medical Devices Description No Information [...] hypertension Alia Garcia M.D. 09/07/2020 Z79.899 Other half-way (current) drug t herapy Alia Garcia M.D. 09/07/2020 Z79.899 Other half-way (current) drug t herapy Lab Schedule 09/07/2020 [...] 9:00 am - Alia Garcia M.D. at [facility] * 03/23/2021 1:40 pm - Nurse Schedule at [facility] 02/02/2021 - Alia Garcia M.D.* [...] ca of the face. Following through at [facility]. Health Maintenance. paperwork is reviewed. She is [...]
--- OUTSIDE RECORDS SUMMARY | 2021-03-11 07:10 | CCD | Continuity of Care Document ---
Author Author Hiral Garcia M.D. Organization Unknown Address [address] [facility] [address] [place] [address] Phone [phone] Care Team Providers Care Level Designer Name Role Phone Tavares Gibbs MD AUTM [phone] Robin Bennett MD AUTM [phone] Alia Garcia MD AUTM [phone] Problems Active Problems Provider Date Embolism from [...] Alia Garcia M.D. 02/03/20 21 Calcium 600+D [id number] Table ts 1 by mouth every day [...] 02/03/20 21 Prolia (denosumab) 60mg,SC injection, ND C#[id number] Injection Nurse Schedul e 09/16/2020 Therapeutic Injection Injection Nurse Schedule 09/16/2020 Covid-19 vaccine, Unspecified Inj ection Unknown 06/19/2020 Covid-19 vaccine, Unspecified Inj ection Unknown 05/22/2020 Prolia (denosumab) 60mg,SC injection, ND C#[id number] Injection Nurse Schedul e 03/16/2020 Therapeutic Injection Injection Nurse Schedule 03/16/2020 Administration Of Flu Vaccine Inj ection Alia Garcia M.D. 01/28/20 20 Prolia (denosumab) 60mg,SC injection, ND C#[id number] Injection Tori Hill er, ANP 09/10/2019 Therapeutic Injection Injection Nurse Schedule 09/10/2019 Administration Of Flu Vaccine Inj ection Tori Finch, [facility] 02/20/2019 Prolia (denosumab) 60mg,SC injection, ND C#[id number] Injection Tori Hill , ANP 11/14/2018 Prolia (denosumab) 60mg,SC injection, ND C#[id number] Injection Nurse Sched e 11/14/2018 Chemotherpy Admin Subcutaneous/Im Non-Ho rmonal Anti-Neoplastic Injection Tori denise, [facility] 11/14/2018 Chemotherpy Admin Subcutaneous/Im Non-Ho rmonal Anti-Neoplastic Injection Nurse [facility] 11/14/2018 Prolia (denosumab) 60mg,SC injection, ND C#[id number] Injection Nurse Sched e 03/28/2018 Chemotherpy Admin Subcutaneous/Im Non-Ho rmonal Anti-Neoplastic Injection Nurse [facility] 03/28/2018 Administration Of Flu Vaccine Inj ection Tori Finch, [facility] 02/12/2018 Prolia (denosumab) 60mg,SC injection, ND C#[id number] Injection Tori Hill , ANP 09/12/2017 Chemotherpy Admin Subcutaneous/Im Non-Ho rmonal Anti-Neoplastic Injection Tori denise, ANP 09/12/2017 Prolia (denosumab) 60mg,SC injection, [facility]#[id number] Injection Nurse Sched e 03/08/2017 Chemotherpy Admin Subcutaneous/Im Non-Ho rmonal Anti-Neoplastic Injection Nurse [facility] 03/08/2017 Administration Of Flu Vaccine Inj raz James MD 02/07/2017 Chemotherpy Admin Subcutaneous/Im Non-Ho rmonal Anti-Neoplastic Injection Nurse [facility] 04/13/2016 Administration Of Flu Vaccine Inj ection Tori Finch, [facility] 02/16/2016 Chemotherpy Admin Subcutaneous/Im Non-Ho rmonal Anti-Neoplastic Injection Nurse [facility] 03/27/2015 Administration Of Flu Vaccine Inj annaleeion Hu James MD 02/04/2015 Chemotherpy Admin Subcutaneous/Im Non-Ho rmonal Anti-Neoplastic Injection Nurse Rodger fischer 09/25/2014 Chemotherpy Admin Subcutaneous/Im Non-Ho rmonal Anti-Neoplastic Injection Nurse [facility] 03/27/2014 Administration Of Flu Vaccine Inj annaleeion Tori Finch, [facility] 02/11/2014 Administration Of Flu [...] CPT Code Status Date Vaccine Lot # [id number] Given 02/02/2021 Influenza Vaccin e Quadrivalent Preser/Antibiotic Free Im Use [id number] 09830 Given 02/02/2021 Influenza Vaccin e Quadrivalent Preser/Antibiotic Free Im Use 55597 Given 01/28/2020 Influenza Vaccin e Quadrivalent Preser/Antibiotic Free Im Use 415198 98499 Given 02/20/2019 Influenza Vaccin e Quadrivalent Preser/Antibiotic Free Im Use [id number] 31654 Given 03/16/2018 Shingrix Zoster Vaccine (HZV), Recombinant, Subunit, Adjuvanted 40887 Given 02/12/2018 Influenza Virus Vaccine, Quadrivalent (Cciiv4), Derived From 1 Given 08/19/2017 Shingrix 14291 Given 08/19/2017 Shingrix Zoster Vaccine (HZV), Recombinant, Subunit, Adjuvanted 69718 Given 02/07/2017 Influenza Vaccin e Quadrivalent Preser/Antibiotic Free Im Use 324350 U-PneuC Given 02/19/2016 Prevnar 13 Q2037 Given 02/16/2016 Fluvirin Virus Vaccine 12266 01 Q2037 Given 02/04/2015 Fluvirin Virus Vaccine 89043 01 05351 Given 02/11/2014 Pneumovax 23 [id number] Q2037 Given 02/11/2014 Fluvirin Virus Vaccine 76407 21 82461 Given 08/12/2013 Adacel- Tetanus Diphtheria P ertussis [id number] Q2037 Given 02/04/2013 Fluvirin Virus Vaccine Q2037 Given 01/19/2012 Fluvirin Virus Vaccine Q2037 Given 02/28/2011 Fluvirin Virus Vaccine 89752 Given 02/15/2010 Influenza Virus Vaccine 74599 Given 02/03/2009 Influenza Virus Vaccine 42100 Given 01/23/2008 Influenza Virus Vaccine 29827 Given 02/07/2007 Influenza Virus Vaccine 19095 Given 08/16/2006 Zoster Vaccine 40288 Given 03/21/2006 Influenza Virus Vaccine 50540 Given 03/03/2005 Influenza Virus Vaccine 27422 Given 01/26/2004 Influenza Virus Vaccine Vital Signs [...] H/L Range Note Ua Dipstick Only 02/03/2021 [facility] Pattern Finisher: [place] [address] [phone] Urine Color YELLOW Yellow Urine Appearance SL. HAZY Abnormal Clear Urine PH 6.0 units 5.0 - 9.0 Urine Specific [place] 1.015 1.005 - 1.030 Urine Leukocytes TRACE Abnormal Negative Urine Blood NEGATIVE Negative Urine Protein NEGATIVE Negative -Trace Urine Glucose NEGATIVE mg/dL Negative Urine Nitrite NEGATIVE Negative Urine Ketone NEGATIVE mg/dL Negative Urine Bilirubin NEGATIVE Negative Urine Urobilinogen 0.2 mg/dL 0.2 - 1.0 Laboratory test finding 02/02/2021 [facility] [address] [place] [address] [phone] Phosphorus Level 4.2 mg/dL Normal 2.5-4.9 Complete Blood Count 02/02/2021 [facility] Pattern Finisher: [place] [address] [phone] WBC 3.4 x10*3/UL Low 4.1 - 10.9 [...] 2.0 - 7.8 Laboratory test finding 02/02/2021 [facility] Pattern Finisher: [place] [address] [phone] Creatine Kinase(CK) 88 U/L 26 - 192 Magnesium 2.2 mg/dL 1.8 - 2.4 Comprehensive Chem Profile 02/02/2021 [facility] Pattern Finisher: Dr [place] [id number] [phone] Glucose 94 mg/dL 74 - 99 1 [...] mL/min >60 2 Laboratory test finding 02/02/2021 [facility] Pattern Finisher: Dr [place] [id number] [phone] Direct Bilirubin 0.2 mg/dL 0.0 - 0.2 Lipid Profile 02/02/2021 [facility] Pattern Finisher: [place] [address] [phone] Cholesterol 184 mg/dL 131 - 200 Triglycerides 85 mg/dL 30 - 150 HDL Cholesterol 99 mg/dL High 35 - 60 LDL (Calculated) 68 CALC 50 - 159 Laboratory test finding 02/02/2021 [facility] Pattern Finisher: Dr Hu Diop [facility] [phone] Thyroid Stimulating Hormone 0.57 uIU/mL 0.3 6 - 3.74 Laboratory test finding 02/02/2021 [facility] Pattern Finisher: [place] [address] [phone] Vitamin D 25-Hydroxy 70.1 ng/ml 24.0 - 80.0 3 Basic Metabolic Panel 09/07/2020 [facility] Pattern Finisher: [place] [address] [phone] Glucose 93 mg/dL 74 - 99 4 [...] mL/min >60 5 Laboratory test finding 09/07/2020 [facility] Pattern Finisher: [place] [address] [phone] Magnesium 2.2 mg/dL 1.8 - 2.4 Laboratory test finding 09/07/2020 [facility] [address] [place] [address] [phone] Phosphorus Level 3.9 mg/dL Normal 2.5-4.9 1 100-125 mg/dL PRE-DIABET ES/FASTING >126 mg/dL DIABETES/FASTING 2 CHRONIC KIDNEY DISEASE STAGI NG PER NKF STAGE I & II GFR >= 60 NORMAL TO MILDLY DECREASED STAGE III GFR 30-59 MODERATELY DECREASED STAGE IV GFR 15-29 SEVERELY DECREASED STAGE V GFR <15 VERY LITTLE GFR LEFT ESRD GFR <15 ON CODING SUPPORT SPECIALIST 3 This test was performed [employer] Vitamin D immunoassay kit. Values obtained with [...] LITTLE GFR LEFT ESRD GFR <15 ON CODING SUPPORT SPECIALIST Procedures Date Code Description Status 02/02/2021 48869 Office/Outpatient Established Mo d MDM 30-39 Min Completed 12/17/2020 64370 Chronic Care MGMT 20 Mins Clinical Staff Time Per Calendar Month Completed 12/17/2020 86653 Chronic Care Management Services Ea Addl 20 Min Completed 11/02/2020 14682 Chronic Care MGMT 20 Mins Clinical Staff Time Per Calendar Month Completed 11/02/2020 43066 Chronic Care Management Services Ea Addl 20 Min Completed 10/21/2020 [id number] Bone Mineral Density Test [facility]ple [facility] 10/21/2020 95568694 Mammogram Completed 09/16/2020 30644 Therapeutic Injection Completed 09/15/2020 68751 Chronic Care MGMT 20 Mins Clinical Staff Time Per Calendar Month Completed 08/13/2020 02371 Chronic Care Management Services Ea Addl 20 Min Completed 08/13/2020 59932 Chronic Care MGMT 20 Mins Clinical Staff Time Per Calendar Month Completed 10/17/2019 [id number] Mammogram Completed 03/26/2018 [id number] Bone Mineral Density Test [facility] 03/26/2018 [id number] Mammogram Completed 03/27/2017 [id number] Mammogram Completed 03/24/2016 [id number] Bone Mineral Density Test [facility] 03/24/2016 [id number] Mammogram Completed 03/12/2015 93466348 Mammogram Completed 03/06/2014 411824653 Bone Mineral Density Test Comple [facility] 03/06/2014 49031352 Mammogram Completed 02/11/2013 19354569 Mammogram Completed 02/10/2012 46707053 Mammogram Completed 07/14/2011 51012579 Colonoscopy Completed 02/16/2011 085896413 Bone Mineral Density Test Comple [facility] 02/04/2011 87936345 Mammogram Completed 02/03/2010 92175589 Mammogram Completed 01/30/2009 734819042 Bone Mineral Density Test [facility] 10/05/2007 [id number] Colonoscopy Completed Medical Devices Description No Information Available Encounters Type Date Location Provider Dx Diagnosis Office Visit 02/02/2021 11:[facility] 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 02/02/2021 H40.9 Unspecified glaucoma Alia Chapa M.D. 02/02/2021 G47.00 Insomnia, unspecified Alia pascal M.D. 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 12/17/2020 K21.9 Gastro-esophageal reflux [...] hypertension Alia Garcia M.D. 09/07/2020 Z79.899 Other intermediate (current) drug t herapy Alia Garcia M.D. 09/07/2020 Z79.899 Other intermediate (current) drug t herapy Lab Schedule 09/07/2020 I10 Essential (primary) hypertension Alia Garcia M.D. 09/07/2020 I10 Essential (primary) hypertension Lab Schedule 08/13/2020 E78.00 Pure hypercholesterolemia, unspe cified Alia Garcia M.D. 08/13/2020 G25.81 Restless legs syndrome Alia Garcia M.D. 08/13/2020 K21.9 Gastro-esophageal reflux disease without esophagitis Alia Garcia M.D. 08/13/2020 I10 Essential (primary) hypertension Alia Garcia M.D. Plan of Treatment Future Appointment(s):* 03/23/2021 1:30 pm - Lab Schedule at [facility] * 08/03/2021 9:00 am - Alia Garcia M.D. at [facility] * 03/23/2021 1:40 pm - Nurse Schedule at [facility] 02/02/2021 - Alia Garcia M.D.* [...] Z23 Encounter for immunization * Z79.899 Other intermediate (current) drug therapy * H40.9 Unspecified glaucoma [...] ORGAN PROLA PSE. Created [facility] [address] [place], [place] [address] [phone]
--- OUTSIDE RECORDS SUMMARY | 2021-03-11 07:10 | CCD | Continuity of Care Document ---
Author Author Hiral Garcia M.D. Organization Unknown Address [address] [facility] [address] [place] [address] Phone [phone] Care Team Providers Care Welding Machine Tender Name Role Phone Tavares Gibbs MD AUTM [phone] Robin Bennett MD AUTM [phone] Alia Garcia MD AUTM [phone] Problems Active Problems Provider Date Embolism from [...] Alia Garcia M.D. 02/03/20 21 Calcium 600+D [id number] Table ts 1 by mouth every day [...] directed dx:c50.919 1unDAT Estrada 05/21/2015 [facility] c50.919 6unDAT Estrada 06/23/2011 Preservision Areds Capsules 1 by mouth every day 30caps Unknown Zinc 30mg Capsules 1 by mo uth every day Unknown Dorzolamide HCL 2% Solution both eyes 1 drop twice a day Unknown Medications Administered in Office Medication SIG Qnty Indications Ordering Provider Date Prolia (denosumab) 60mg,SC injection, ND C#[id number] Injection Nurse Schedul e 09/16/2020 Therapeutic Injection Injection Nurse Schedule 09/16/2020 Covid-19 vaccine, Unspecified Inj ection Unknown 06/19/2020 Covid-19 vaccine, Unspecified Inj ection Unknown 05/22/2020 Prolia (denosumab) 60mg,SC injection, ND C#[id number] Injection Nurse Schedul e 03/16/2020 Therapeutic Injection Injection Nurse Schedule 03/16/2020 Administration Of Flu Vaccine Inj ection Alia Garcia M.D. 01/28/20 20 Prolia (denosumab) 60mg,SC injection, ND C#[id number] Injection Tori Hill er, ANP 09/10/2019 Therapeutic Injection Injection Nurse Schedule 09/10/2019 Administration Of Flu Vaccine Inj ection Tori Finch, [facility] 02/20/2019 Prolia (denosumab) 60mg,SC injection, ND C#[id number] Injection Tori Hill , [facility] 11/14/2018 Prolia (denosumab) 60mg,SC injection, ND C#[id number] Injection Nurse Sched e 11/14/2018 Chemotherpy Admin Subcutaneous/Im Non-Ho rmonal Anti-Neoplastic Injection Tori denise, [facility] 11/14/2018 Chemotherpy Admin Subcutaneous/Im Non-Ho rmonal Anti-Neoplastic Injection Nurse [facility] 11/14/2018 Prolia (denosumab) 60mg,SC injection, ND C#[id number] Injection Nurse Sched e 03/28/2018 Chemotherpy Admin Subcutaneous/Im Non-Ho rmonal Anti-Neoplastic Injection Nurse [facility] 03/28/2018 Administration Of Flu Vaccine Inj ection Tori Finch, [facility] 02/12/2018 Prolia (denosumab) 60mg,SC injection, ND C#[id number] Injection Tori Hill , ANP 09/12/2017 Chemotherpy Admin Subcutaneous/Im Non-Ho rmonal Anti-Neoplastic Injection Tori denise, ANP 09/12/2017 Prolia (denosumab) 60mg,SC injection, ND C#[id number] Injection Nurse Sched e 03/08/2017 Chemotherpy Admin Subcutaneous/Im Non-Ho rmonal Anti-Neoplastic Injection Nurse [facility] 03/08/2017 Administration Of Flu Vaccine Inj annaleeion Hu James MD 02/07/2017 Chemotherpy Admin Subcutaneous/Im Non-Ho rmonal Anti-Neoplastic Injection Nurse [facility] 04/13/2016 Administration Of Flu Vaccine Inj ection Tori Finch, ANP 02/16/2016 Chemotherpy Admin Subcutaneous/Im Non-Ho rmonal Anti-Neoplastic Injection Nurse Rodger fischer 03/27/2015 Administration Of Flu Vaccine Inj ection Hu James MD 02/04/2015 Chemotherpy Admin Subcutaneous/Im Non-Ho rmonal Anti-Neoplastic Injection Nurse Rodger fischer 09/25/2014 Chemotherpy Admin Subcutaneous/Im Non-Ho rmonal Anti-Neoplastic Injection Nurse [facility] 03/27/2014 Administration Of Flu Vaccine Inj [...] CPT Code Status Date Vaccine Lot # 49263 Given 02/02/2021 Influenza Vaccin e Quadrivalent Preser/Antibiotic Free Im Use 617192 90204 Given 01/28/2020 Influenza Vaccin e Quadrivalent Preser/Antibiotic Free Im Use 340762 48478 Given 02/20/2019 Influenza Vaccin e Quadrivalent Preser/Antibiotic Free Im Use 212408 69532 Given 03/16/2018 Shingrix Zoster Vaccine (HZV), Recombinant, Subunit, Adjuvanted 45354 Given 02/12/2018 Influenza Virus Vaccine, Quadrivalent (Cciiv4), Derived From 6 Given 08/19/2017 Shingrix 98842 Given 08/19/2017 Shingrix Zoster Vaccine (HZV), Recombinant, Subunit, Adjuvanted 34973 Given 02/07/2017 Influenza Vaccin e Quadrivalent Preser/Antibiotic Free Im Use 309390 U-PneuC Given 02/19/2016 Prevnar 13 Q2037 Given 02/16/2016 Fluvirin Virus Vaccine 06598 01 Q2037 Given 02/04/2015 Fluvirin Virus Vaccine 46080 01 77688 Given 02/11/2014 Pneumovax 23 [id number] Q2037 Given 02/11/2014 Fluvirin Virus Vaccine 59776 21 57090 Given 08/12/2013 Adacel- Tetanus Diphtheria P ertussis [id number] Q2037 Given 02/04/2013 Fluvirin Virus Vaccine Q2037 Given 01/19/2012 Fluvirin Virus Vaccine Q2037 Given 02/28/2011 Fluvirin Virus Vaccine 27697 Given 02/15/2010 Influenza Virus Vaccine 34577 Given 02/03/2009 Influenza Virus Vaccine 27225 Given 01/23/2008 Influenza Virus Vaccine 14806 Given 02/07/2007 Influenza Virus Vaccine 07452 Given 08/16/2006 Zoster Vaccine 27075 Given 03/21/2006 Influenza Virus Vaccine 82573 Given 03/03/2005 Influenza Virus Vaccine 30735 Given 01/26/2004 Influenza Virus Vaccine Vital Signs [...] Dipstick Only 02/03/2021 [facility] Elastic Yarn Twister: [place] [address] [phone] Urine Color YELLOW Yellow Urine Appearance SL. HAZY Abnormal Clear Urine PH 6.0 units 5.0 - 9.0 Urine Specific [place] 1.015 1.005 - 1.030 Urine Leukocytes TRACE Abnormal Negative Urine Blood NEGATIVE Negative Urine Protein NEGATIVE Negative -Trace Urine Glucose NEGATIVE mg/dL Negative Urine Nitrite NEGATIVE Negative Urine Ketone NEGATIVE mg/dL Negative Urine Bilirubin NEGATIVE Negative Urine Urobilinogen 0.2 mg/dL 0.2 - 1.0 Laboratory test finding 02/02/2021 [facility] [address] [place] [address] [phone] Phosphorus Level 4.2 mg/dL Normal 2.5-4.9 Complete Blood Count 02/02/2021 [facility] branden sanchez Elastic Yarn Twister: [place] [address] [phone] WBC 3.4 x10*3/UL Low 4.1 - 10.9 [...] 2.0 - 7.8 Laboratory test finding 02/02/2021 [facility] Techn[facility] branden valentine Elastic Yarn Twister: [place] [address] [phone] Creatine Kinase(CK) 88 U/L 26 - 192 Magnesium 2.2 mg/dL 1.8 - 2.4 Comprehensive Chem Profile 02/02/2021 [facility] Elastic Yarn Twister: [place] [address] [phone] Glucose 94 mg/dL 74 - 99 1 [...] mL/min >60 2 Laboratory test finding 02/02/2021 [facility] Raghu valentine Elastic Yarn Twister: [place] [address] [phone] Direct Bilirubin 0.2 mg/dL 0.0 - 0.2 Lipid Profile 02/02/2021 [facility] Elastic Yarn Twister: [place] [address] [phone] Cholesterol 184 mg/dL 131 - 200 Triglycerides 85 mg/dL 30 - 150 HDL Cholesterol 99 mg/dL High 35 - 60 LDL (Calculated) 68 CALC 50 - 159 Laboratory test finding 02/02/2021 [facility] Raghu valentine Elastic Yarn Twister: [place] [address] [phone] Thyroid Stimulating Hormone 0.57 uIU/mL 0.3 6 - 3.74 Laboratory test finding 02/02/2021 [facility] brand[facility] Preciado Elastic Yarn Twister: [place] [address] [phone] Vitamin D 25-Hydroxy 70.1 ng/ml 24.0 - 80.0 3 Basic Metabolic Panel 09/07/2020 [facility] Elastic Yarn Twister: [place] [address] [phone] Glucose 93 mg/dL 74 - 99 4 [...] mL/min >60 5 Laboratory test finding 09/07/2020 [facility] Elastic Yarn Twister: Dr Hu James [place], [place] [address] [phone] Magnesium 2.2 mg/dL 1.8 - 2.4 Laboratory test finding 09/07/2020 [facility] [address] [place] [address] [phone] Phosphorus Level 3.9 mg/dL Normal 2.5-4.9 1 100-125 mg/dL PRE-DIABET ES/FASTING >126 mg/dL DIABETES/FASTING 2 CHRONIC KIDNEY DISEASE STAGI NG PER NKF STAGE I & II GFR >= 60 NORMAL TO MILDLY DECREASED STAGE III GFR 30-59 MODERATELY DECREASED STAGE IV GFR 15-29 SEVERELY DECREASED STAGE V GFR <15 VERY LITTLE GFR LEFT ESRD GFR <15 ON MANAGER MINING 3 This test was performed [facility] [employer] Vitamin D immunoassay kit. Values obtained with [...] LITTLE GFR LEFT ESRD GFR <15 ON MANAGER MINING Procedures Date Code Description Status 12/17/2020 55547 Chronic Care Management Services Ea Addl 20 Min Completed 12/17/2020 70800 Chronic Care MGMT 20 Mins Clinical Staff Time Per Calendar Month Completed 11/02/2020 78033 Chronic Care MGMT 20 Mins Clinical Staff Time Per Calendar Month Completed 11/02/2020 74625 Chronic Care Management Services Ea Addl 20 Min Completed 10/21/2020 834547142 Bone Mineral Density Test Comple [facility] 10/21/2020 66011954 Mammogram Completed 09/16/2020 42498 Therapeutic Injection Completed 09/15/2020 03169 Chronic Care MGMT 20 Mins Clinical Staff Time Per Calendar Month Completed 08/13/2020 79252 Chronic Care Management Services Ea Addl 20 Min Completed 08/13/2020 88162 Chronic Care MGMT 20 Mins Clinical Staff Time Per Calendar Month Completed 10/17/2019 [id number] Mammogram Completed 03/26/2018 [id number] Bone Mineral Density Test Comple [facility] 03/26/2018 89152491 Mammogram Completed 03/27/2017 [id number] Mammogram Completed 03/24/2016 452294143 Bone Mineral Density Test Comple [facility] 03/24/2016 34770417 Mammogram Completed 03/12/2015 73058964 Mammogram Completed 03/06/2014 482099329 Bone Mineral Density Test Comple [facility] 03/06/2014 86790012 Mammogram Completed 02/11/2013 [id number] Mammogram Completed 02/10/2012 37272872 Mammogram Completed 07/14/2011 [id number] Colonoscopy Completed 02/16/2011 [id number] Bone Mineral Density Test Comple [facility] 02/04/2011 [id number] Mammogram Completed 02/03/2010 79097614 Mammogram Completed 01/30/2009 146113847 Bone Mineral Density Test Comple [facility] 10/05/2007 89353567 Colonoscopy Completed Medical Devices Description No Information [...] hypertension Alia Garcia M.D. 09/07/2020 Z79.899 Other long-term (current) drug t herapy Alia aGrcia M.D. 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 at [facility] * 03/23/2021 1:40 pm - Nurse Schedule at [facility] 02/02/2021 - Alia Garcia M.D.* [...] ca of the face. Following through at [facility]. Health Maintenance. paperwork is reviewed. [...]
--- OUTSIDE RECORDS SUMMARY | 2021-03-11 07:10 | CCD | Continuity of Care Document ---
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 Lizeth Potter MD R1 5.9 Full incontinence of feces R15.2 Fecal urgency N32.81 Overactive bladder N39.41 Urge incontinence N81.11 Cystocele, midline N81.2 Incomplete uterovaginal prol apse 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 Z91.89 Oth personal risk factors, n ot elsewhere classified Assessments Date Code Description Provider 02/17/2021 R15.9 Full incontinence of feces Lizeth [...] 10:00 am - Lizeth Potter MD at [facility] asbestos removal supervisor * 03/11/2021 10:30 am - Lizeth Potter MD at [facility] * 03/10/2021 9:00 am - Lizeth Potter MD at [facility] asbestos removal supervisor * 03/04/2021 10:30 am - Lizeth Potter MD at [facility] * 02/18/2022 9:45 am - Lizeth Potter MD at [facility] asbestos removal supervisor 02/17/2021 - Lizeth Potter MD* R15.9 Full [...]
--- OUTSIDE RECORDS SUMMARY | 2021-03-11 07:10 | CCD | Continuity of Care Document ---
Author Author Lab Schedule, Hiral Hadley Organization Unknown Address [address] [address] Phone Unavailable Care Team Providers Care Health Insurance Agent Name Role Phone [place], Tavares Hawthorne MD AUTM [phone] Robin Bennett MD AUTM [phone] Alia Garcia MD AUTM [phone] Problems Active Problems Provider Date Embolism from [...] day Alia Garcia M.D. 02/03/20 Calcium 600+D [id number] Table ts 1 by mouth every day [...] 1units Tori Finch, DAT 05/21/2015 Mastectomy Bra [facility] as directed dx c50.919 6units DAT Smith [...] 02/03/20 21 Prolia (denosumab) 60mg,SC injection, ND C#[id number] Injection Nurse Schedul e 09/16/2020 Therapeutic Injection Injection Nurse Schedule 09/16/2020 Covid-19 vaccine, Unspecified Inj ection Unknown 06/19/2020 Covid-19 vaccine, Unspecified Inj ection Unknown 05/22/2020 Prolia (denosumab) 60mg,SC injection, ND C#[id number] Injection Nurse Schedul e 03/16/2020 Therapeutic Injection Injection Nurse Schedule 03/16/2020 Administration Of Flu Vaccine Inj ection Alia Garcia M.D. 01/28/20 20 Prolia (denosumab) 60mg,SC injection, ND C#[id number] Injection Tori Leyva er, ANP 09/10/2019 Therapeutic Injection Injection Nurse Schedule 09/10/2019 Administration Of Flu Vaccine Inj ection Tori Finch, [facility] 02/20/2019 Prolia (denosumab) 60mg,SC injection, ND C#[id number] [facility] 11/14/2018 Prolia (denosumab) 60mg,SC injection, ND C#[id number] Injection Nurse Sched e 11/14/2018 Chemotherpy Admin Subcutaneous/Im Non-Ho rmonal Anti-Neoplastic Injection Tori denise, [facility] 11/14/2018 Chemotherpy Admin Subcutaneous/Im Non-Ho rmonal Anti-Neoplastic Injection Nurse [facility] 11/14/2018 Prolia (denosumab) 60mg,SC injection, ND C#[id number] Injection Nurse Sched e 03/28/2018 Chemotherpy Admin Subcutaneous/Im Non-Ho rmonal Anti-Neoplastic Injection Nurse [facility] 03/28/2018 Administration Of Flu Vaccine Inj ection Tori Finch, ANP 02/12/2018 Prolia (denosumab) 60mg,SC injection, ND C#[id number] Injection Tori Jorge [facility], ANP 09/12/2017 Chemotherpy Admin Subcutaneous/Im Non-Ho rmonal Anti-Neoplastic Injection Tori denise, ANP 09/12/2017 Prolia (denosumab) 60mg,SC injection, ND C#[id number] Injection Nurse Sched e 03/08/2017 Chemotherpy Admin Subcutaneous/Im Non-Ho rmonal Anti-Neoplastic Injection Nurse Rodger fischer 03/08/2017 Administration Of Flu Vaccine Inj annaleeion Hu James MD 02/07/2017 Chemotherpy Admin Subcutaneous/Im Non-Ho rmonal Anti-Neoplastic Injection Nurse Rodger fischer 04/13/2016 Administration Of Flu Vaccine Inj ection Tori Finch, ANP 02/16/2016 Chemotherpy Admin Subcutaneous/Im Non-Ho rmonal Anti-Neoplastic Injection Nurse Rodger fischer 03/27/2015 Administration Of Flu Vaccine Inj annaleeion Hu James MD 02/04/2015 Chemotherpy Admin Subcutaneous/Im Non-Ho rmonal Anti-Neoplastic Injection Nurse Rodger fischer 09/25/2014 Chemotherpy Admin Subcutaneous/Im Non-Ho rmonal Anti-Neoplastic Injection Nurse [facility] amado 03/27/2014 Administration Of Flu Vaccine Inj ection Tori Finch, ANP 02/11/2014 Administration Of Flu Vaccine Inj annaleeion Hu James MD 02/04/2013 Administration Of Flu Vaccine Inj ection Tori Finch, ANP 01/19/2012 Administration Of Flu Vaccine Inj ection Tori Finch, ANP 02/28/2011 Administration Of Flu Vaccine Inj ection Tori Finch, ANP 02/15/2010 Administration Of Flu Vaccine Inj ection Tori Jorge [place], ANP 02/03/2009 Administration Of Flu Vaccine Inj ection Tori Finch, ANP 01/23/2008 Administration Of Flu Vaccine Inj ection Tori Finch, ANP 02/07/2007 Administration Of Flu Vaccine Inj ection Tori Jorge [place], ANP 03/03/2005 Administration Of Flu Vaccine Inj ection Tori J. Josette, ANP 01/26/2004 Immunizations CPT Code Status Date Vaccine Lot # [id number] Given 02/02/2021 Influenza Vaccin e Quadrivalent Preser/Antibiotic Free Im Use [id number] 85785 Given 02/02/2021 Influenza Vaccin e Quadrivalent Preser/Antibiotic Free Im Use 25443 Given 01/28/2020 Influenza Vaccin e Quadrivalent Preser/Antibiotic Free Im Use [id number] 15676 Given 02/20/2019 Influenza Vaccin e Quadrivalent Preser/Antibiotic Free Im Use [id number] 98311 Given 03/16/2018 Shingrix Zoster Vaccine (HZV), Recombinant, Subunit, Adjuvanted 61572 Given 02/12/2018 Influenza Virus Vaccine, Quadrivalent (Cciiv4), Derived From 5 Given 08/19/2017 Shingrix 17511 Given 08/19/2017 Shingrix Zoster Vaccine (HZV), Recombinant, Subunit, Adjuvanted 95202 Given 02/07/2017 Influenza Vaccin e Quadrivalent Preser/Antibiotic Free Im Use 080765 U-PneuC Given 02/19/2016 Prevnar 13 Q2037 Given 02/16/2016 Fluvirin Virus Vaccine 36522 01 Q2037 Given 02/04/2015 Fluvirin Virus Vaccine 39714 01 34652 Given 02/11/2014 Pneumovax 23 [id number] Q2037 Given 02/11/2014 Fluvirin Virus Vaccine 11740 21 65806 Given 08/12/2013 Adacel- Tetanus Diphtheria P ertussis [id number] Q2037 Given 02/04/2013 Fluvirin Virus Vaccine Q2037 Given 01/19/2012 Fluvirin Virus Vaccine Q2037 Given 02/28/2011 Fluvirin Virus Vaccine 78449 Given 02/15/2010 Influenza Virus Vaccine 02085 Given 02/03/2009 Influenza Virus Vaccine 42734 Given 01/23/2008 Influenza Virus Vaccine 67762 Given 02/07/2007 Influenza Virus Vaccine 17423 Given 08/16/2006 Zoster Vaccine 68850 Given 03/21/2006 Influenza Virus Vaccine 54547 Given 03/03/2005 Influenza Virus Vaccine 83453 Given 01/26/2004 Influenza Virus Vaccine Vital Signs [...] H/L Range Note Ua Dipstick Only 02/03/2021 [facility] Network And Threat Support Specialist: [place] [address] [phone] Urine Color YELLOW Yellow Urine Appearance SL. HAZY Abnormal Clear Urine PH 6.0 units 5.0 - 9.0 Urine Specific [place] 1.015 1.005 - 1.030 Urine Leukocytes TRACE Abnormal Negative Urine Blood NEGATIVE Negative Urine Protein NEGATIVE Negative -Trace Urine Glucose NEGATIVE mg/dL Negative Urine Nitrite NEGATIVE Negative Urine Ketone NEGATIVE mg/dL Negative Urine Bilirubin NEGATIVE Negative Urine Urobilinogen 0.2 mg/dL 0.2 - 1.0 Laboratory test finding 02/02/2021 [facility] [address] [place] [address] [phone] Phosphorus Level 4.2 mg/dL Normal 2.5-4.9 Complete Blood Count 02/02/2021 [facility] Network And Threat Support Specialist: [place] [address] [phone] WBC 3.4 x10*3/UL Low 4.1 - 10.9 [...] 2.0 - 7.8 Laboratory test finding 02/02/2021 [facility] Network And Threat Support Specialist: [place] [address] [phone] Creatine Kinase(CK) 88 U/L 26 - 192 Magnesium 2.2 mg/dL 1.8 - 2.4 Comprehensive Chem Profile 02/02/2021 [facility] Network And Threat Support Specialist: [place] [address] [phone] Glucose 94 mg/dL 74 - 99 1 [...] mL/min >60 2 Laboratory test finding 02/02/2021 [facility]entine Network And Threat Support Specialist: [place] [address] [phone] Direct Bilirubin 0.2 mg/dL 0.0 - 0.2 Lipid Profile 02/02/2021 [facility] Network And Threat Support Specialist: Dr Hu [place] [id number] [phone] Cholesterol 184 mg/dL 131 - 200 Triglycerides 85 mg/dL 30 - 150 HDL Cholesterol 99 mg/dL High 35 - 60 LDL (Calculated) 68 CALC 50 - 159 Laboratory test finding 02/02/2021 [facility] Network And Threat Support Specialist: [place] [address] [phone] Thyroid Stimulating Hormone 0.57 uIU/mL 0.3 6 - 3.74 Laboratory test finding 02/02/2021 [facility] Network And Threat Support Specialist: [place] [address] [phone] Vitamin D 25-Hydroxy 70.1 ng/ml 24.0 - 80.0 3 Basic Metabolic Panel 09/07/2020 [facility] Network And Threat Support Specialist: [place] [address] [phone] Glucose 93 mg/dL 74 - 99 4 [...] mL/min >60 5 Laboratory test finding 09/07/2020 [facility] Network And Threat Support Specialist: [place] [address] [phone] Magnesium 2.2 mg/dL 1.8 - 2.4 Laboratory test finding 09/07/2020 [facility] [address] [place] [address] [phone] Phosphorus Level 3.9 mg/dL Normal 2.5-4.9 1 100-125 mg/dL PRE-DIABET ES/FASTING >126 mg/dL DIABETES/FASTING 2 CHRONIC KIDNEY DISEASE STAGI NG PER NKF STAGE I & II GFR >= 60 NORMAL TO MILDLY DECREASED STAGE III GFR 30-59 MODERATELY DECREASED STAGE IV GFR 15-29 SEVERELY DECREASED STAGE V GFR <15 VERY LITTLE GFR LEFT ESRD GFR <15 ON URGENT CARE PHYSICIAN 3 This test was performed mohit love [employer] Vitamin D immunoassay kit. Values obtained with [...] LITTLE GFR LEFT ESRD GFR <15 ON URGENT CARE PHYSICIAN Procedures Date Code Description Status 02/02/2021 64332 Office/Outpatient Established Mo d MDM 30-39 Min Completed 12/17/2020 99357 Chronic Care MGMT 20 Mins Clinical Staff Time Per Calendar Month Completed 12/17/2020 62481 Chronic Care Management Services Ea Addl 20 Min Completed 11/02/2020 24974 Chronic Care MGMT 20 Mins Clinical Staff Time Per Calendar Month Completed 11/02/2020 48142 Chronic Care Management Services Ea Addl 20 Min Completed 10/21/2020 [id number] Bone Mineral Density Test Comple [facility] 10/21/2020 [id number] Mammogram Completed 09/16/2020 86156 Therapeutic Injection Completed 09/15/2020 87090 Chronic Care MGMT 20 Mins Clinical Staff Time Per Calendar Month Completed 08/13/2020 53406 Chronic Care Management Services Ea Addl 20 Min Completed 08/13/2020 57291 Chronic Care MGMT 20 Mins Clinical Staff Time Per Calendar Month Completed 10/17/2019 [id number] Mammogram Completed 03/26/2018 [id number] Bone Mineral Density Test [facility] 03/26/2018 [id number] Mammogram Completed 03/27/2017 [id number] Mammogram Completed 03/24/2016 [id number] Bone Mineral Density Test Comple [facility] 03/24/2016 [id number] Mammogram Completed 03/12/2015 [id number] Mammogram Completed 03/06/2014 [id number] Bone Mineral Density Test Comple [facility] 03/06/2014 [id number] Mammogram Completed 02/11/2013 [id number] Mammogram Completed 02/10/2012 [id number] Mammogram Completed 07/14/2011 [id number] Colonoscopy Completed 02/16/2011 [id number] Bone Mineral Density Test Comple [facility] 02/04/2011 [id number] Mammogram Completed 02/03/2010 [id number] Mammogram Completed 01/30/2009 [id number] Bone Mineral Density Test [facility] 10/05/2007 [id number] Colonoscopy Completed Medical Devices Description No Information Available Encounters Type Date Location Provider Dx Diagnosis Office Visit [facility] M19.90 Unspecified osteoarthritis, unspecified [...] disorder Z23 Encounter for immunization Z79.899 Other vermin exterminator (current) dr clifton therapy H40.9 Unspecified glaucoma [...] immunization Alia Garcia M.D. 02/02/2021 Z79.899 [facility] [place] Alia Garcia M.D. [...] hypertension Alia Garcia M.D. 09/07/2020 Z79.899 Other vermin exterminator (current) drug t herapy Alia Garcia M.D. 09/07/2020 Z79.899 [facility] [place] [facility] drug t [facility]rapy Lab Schedule 09/07/2020 [...] 03/23/2021 1:30 pm - Lab Schedule at [facility] * 08/03/2021 9:00 am - Alia Garcia M.D. at [facility] * 03/23/2021 1:40 pm - Nurse Schedule at [facility] 02/02/2021 - Alia Garcia M.D.* [...] Z23 Encounter for immunization * Z79.899 Other vermin exterminator (current) drug therapy * H40.9 Unspecified glaucoma [...] ca of the face. Following through at [facility]. Health Maintenance. paperwork is reviewed. [...] ORGAN PROLA PSE. Created [facility] [address] [address] [phone]
--- OUTSIDE RECORDS SUMMARY | 2021-03-11 07:11 | CCD | Continuity of Care Document ---
Author Author Hiral WATT F.N.P. Organization Unknown Address [address] [place] [address] Phone [phone] Care Team Providers Care Fast Food Crew Lead Name Role Phone Tori Finch DAT AUTM [phone] Problems Description No Information Available Social History [...] crusted and the cutis is inflamed. CPT: 29914*1 Procedures Date Code Description Status 01/19/2021 96923 Office/Outpatient Established Mo d MDM 30-39 Min Completed 01/19/2021 09857 Shave Biopsy Of Skin, Single Les ion [...]
--- OUTSIDE RECORDS SUMMARY | 2021-03-11 07:11 | CCD ---
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, Tori PP [phone] Reason for Referral No Reason for Referral Recorded Problems Includes: Active, inactive, and resolved Problems All Visits Onset Date - Time Resolved Date - Time Provider Co ndition Status Conjunctivitis Acute Atopic 08/23/2018 - 12:00AM 03/31/2020 - 12 :19PM Robin Bennett MD, FACS Resolved Conjunctivitis Chronic Allergic 08/23/2018 - 12:00AM Robin Bennett MD, FACS Active Macular Puckering 07/23/2018 - 12:00AM Robin Yañez MD, FACS Active Blepharitis Squamous 02/02/2017 - 12:00AM Robin Montes MD, FACS Active Squamous blepharitis right lower eyelid 02/02/2017 - 12:00AM Robin Yañez MD, FACS Active Squamous blepharitis left upper eyelid 02/02/2017 - 12:00AM Robin Yañez MD, FACS Active Squamous blepharitis left lower eyelid 02/02/2017 - 12:00AM Robin Yañez MD, FACS Active Macular Degeneration Nonexudative Bilateral Early Dry Stage 07/18/2016 - 12:00AM Robin Bennett MD, FACS Active Glaucoma Open-angle Primary Right Eye 07/18/2016 - 12:00AM Robin Bennett MD, FACS Active Glaucoma Open-angle Primary Left Eye 07/18/2016 - 12:00AM Robin Bennett MD, FACS Active Cataract Senile Cortical Right 07/18/2016 - 12:00AM Robin Bennett MD, FACS Active Drusen Left Eye 03/14/2014 - 12:00AM Robin modi MD, FACS Inactive Note: Unchanged Macular Degeneration Nonexudative Dry 03/14/2014 - :00AM Robin Bennett MD, FACS Inactive Note: Unchanged - of the rig ht eye Glaucoma Open-angle Primary Both Eyes 03/14/2014 - :00AM Robin Bennett MD, FACS Inactive Note: Unchanged Cataract Senile Cortical 08/29/2013 - :00AM Robin Bennett MD, FACS Inactive Note: Unchanged - of the rig ht eye Macular Puckering Right Eye 08/29/2013 - :00AM Robin Bennett MD, FACS Inactive Note: Unchanged Drusen Both Eyes 02/07/2013 - :00AM Robin bermudez MD, FACS Inactive Note: Unchanged Glaucoma Stage Mild 02/07/2013 - :00AM Robin Robles MD, FACS Inactive Note: Unchanged Macular Puckering Right Eye 02/07/2013 - :00AM Robin Bennett MD, FACS Inactive Note: Improved Cataract Senile Nuclear 02/07/2013 - :00AM Robin Bennett MD, FACS Active Note: Unchanged - of both ey es Dry Eye Syndrome Both Eyes 02/07/2013 - :00AM Robin Bennett MD, FACS Active Note: Unchanged Vitreous Floaters Both Eyes 02/07/2013 - :00AM Robin Bennett MD, FACS Active Note: Unchanged Plan of Treatment Pending Tests Order Diagnosis Results Due Ordering Provi lenny Testing Ordered - OCT OCT DISC Primary open-angle glaucoma, left eye, mild stage 12/08/20 Robin Bennett MD, FACS Testing Ordered - Visual Field Visual Field 24-2 Primary o pen-angle glaucoma, right eye, moderate stage 04/04/21 Robin Bennett MD, FACS Future Appointments Date Time Location Provider 5 Month Follow-Up 03/23/2021 1:55PM Robin [facility] Robin Bennett MD, FACS Assessments Includes: Assessments for all patient encounters Findings Encounter Date Primary open-angle glaucoma of left eye IOP CHECK with Robin Bennett MD, FACS 10/06/2020 Primary open-angle glaucoma of right eye IOP CHECK wit h Robin Bennett MD, FACS 10/06/2020 Primary open-angle glaucoma of left eye IOP CHECK with Robin Bennett MD, FACS 06/11/2020 Primary open-angle glaucoma of right eye IOP CHECK wit h Robin Bennett MD, FACS 06/11/2020 Early dry stage nonexudative macular degeneration of b oth eyes 1 Year Follow-Up with Robin Bennett MD, FACS 03/31/2020 Macular puckering 1 Year Follow-Up with Robin escudero MD, FACS 03/31/2020 Primary open-angle glaucoma of left eye 1 Year Follow- Up with Robin Yañez MD, FACS 03/31/2020 Primary open-angle glaucoma of right eye 1 Year Follow -Up with Robin Yañez MD, FACS 03/31/2020 Acute atopic conjunctivitis TRIAGE NON URGENT with Robin Bennett MD, FACS 02/04/2020 Chronic allergic conjunctivitis TRIAGE NON URGENT with Robin Bennett MD, FACS 02/04/2020 Early dry stage nonexudative macular degeneration of b oth eyes 6 Month Follow-Up with Robin Bennett MD, FACS 03/08/2019 Macular puckering 6 Month Follow-Up with Robin modi MD, FACS 03/08/2019 Primary open-angle glaucoma of left eye 6 Month Follow -Up with Robin Yañez MD, FACS 03/08/2019 Primary open-angle glaucoma of right eye 6 Month Follo w-Up with Robin Yañez MD, FACS 03/08/2019 Bilateral hypermetropia REFRACTION with Robin Bennett MD, FACS 09/07/2018 Acute atopic conjunctivitis REFRACTION with Robin bermudez MD, FACS 08/23/2018 Chronic allergic conjunctivitis REFRACTION with Robin Montes MD, FACS 08/23/2018 Early dry stage nonexudative macular degeneration of b oth eyes 6 Month follow up with testing with Robin Bennett MD, FACS 07/23/2018 Macular puckering 6 Month follow up with tommy brink with Robin Bennett MD, FACS 07/23/2018 Primary open-angle glaucoma of left eye 6 Month follow up with testing with Robin Bennett MD, FACS 07/23/2018 Primary open-angle glaucoma of right eye 6 Month follo w up with testing with Robin Bennett MD, FACS 07/23/2018 Primary open-angle glaucoma of left eye IOP CHECK with Robin Bennett MD, FACS 02/14/2018 Primary open-angle glaucoma of right eye IOP CHECK wit h Robin Bennett MD, FACS 02/14/2018 Primary open-angle glaucoma of left eye IOP CHECK WITH TESTING with Robin Bennett MD, FACS 10/02/2017 Primary open-angle glaucoma of right eye IOP CHECK WIT H TESTING with Robin Bennett MD, FACS 10/02/2017 Cortical senile cataract 6 Month Follow-Up with Robin Montes MD, FACS 08/03/2017 Early dry stage nonexudative macular degeneration of b oth eyes 6 Month Follow-Up with Robin Bennett MD, FACS 08/03/2017 Nuclear senile cataract 6 Month Follow-Up with Robin Robles MD, FACS 08/03/2017 Primary open-angle glaucoma of left eye 6 Month Follow -Up with Robin Yañez MD, FACS 08/03/2017 Primary open-angle glaucoma of right eye 6 Month Follo w-Up with Robin Yañez MD, FACS 08/03/2017 Early dry stage nonexudative macular degeneration of b oth eyes 6 Month Follow-Up with Robin Bennett MD, FACS 02/02/2017 Nuclear senile cataract 6 Month Follow-Up with Robin Robles MD, FACS 02/02/2017 Primary open-angle glaucoma of left eye 6 Month Follow -Up with Robin Yañez MD, FACS 02/02/2017 Primary open-angle glaucoma of right eye 6 Month Follo w-Up with Robin Yañez MD, FACS 02/02/2017 Right cortical senile cataract 6 Month Follow-Up with Robin Bennett MD, FACS 02/02/2017 Squamous blepharitis 6 Month Follow-Up with Robin bermudez MD, FACS 02/02/2017 Early dry stage nonexudative macular degeneration of b oth eyes 1 Year Follow-Up with Robin Bennett MD, FACS 07/18/2016 Nuclear senile cataract 1 Year Follow-Up with Robin Escobedo MD, FACS 07/18/2016 Primary open-angle glaucoma of left eye 1 Year Follow- Up with Robin Yañez MD, FACS 07/18/2016 Primary open-angle glaucoma of right eye 1 Year Follow -Up with Robin Yañez MD, FACS 07/18/2016 Right cortical senile cataract 1 Year Follow-Up with Nevaeh Bennett MD, FACS 07/18/2016 Primary open-angle glaucoma of both eyes VISUAL FIELD 24-2 with Robin Yañez MD, FACS 11/18/2015 Dry nonexudative macular degeneration 7 Month Follow-U p and Testing with Robin Bennett MD, FACS 08/17/2015 Macular puckering of the right eye 7 Month Follow-Up a nd Testing with Robin Bennett MD, FACS 08/17/2015 Nuclear senile cataract 7 Month Follow-Up and Testin g with Robin Bennett MD, FACS 08/17/2015 Primary open-angle glaucoma of both eyes 7 Month Follo w-Up and Testing with Robin Bennett MD, FACS 08/17/2015 Right cortical senile cataract 7 Month Follow-Up and T esting with Robin Bennett MD, FACS 08/17/2015 Drusen of the left eye 6 Month Follow-Up with Robin Escobedo MD, FACS 12/24/2014 Dry eye syndrome of both eyes 6 Month Follow-Up with Nevaeh Bennett MD, FACS 12/24/2014 Dry nonexudative macular degeneration right eye 6 Mon Follow-Up with Robin Bennett MD, FACS 12/24/2014 Macular puckering of the right eye 6 Month Follow-Up w ith Robin Bennett MD, FACS 12/24/2014 Mild stage glaucoma 6 Month Follow-Up with Robin modi MD, FACS 12/24/2014 Nuclear senile cataract both eyes 6 Month Follow-Up w ith Robin Bennett MD, FACS 12/24/2014 Primary open-angle glaucoma in both eyes 6 Month Follo w-Up with Robin Yañez MD, FACS 12/24/2014 Right cortical senile cataract 6 Month Follow-Up with Robin Bennett MD, FACS 12/24/2014 Vitreous floaters in both eyes 6 Month Follow-Up with Robin Bennett MD, FACS 12/24/2014 Primary open-angle glaucoma in both eyes VISUAL FIELD 24-2 with Robin Yañez MD, FACS 09/19/2014 Cortical senile cataract right eye 6 Month Follow-Up OCT Disc with Robin Bennett MD, FACS 03/14/2014 Drusen of the left eye 6 Month Follow-Up OCT Disc w ith Robin Bennett MD, FACS 03/14/2014 Dry eye syndrome of both eyes 6 Month Follow-Up OCT Di sc with Robin Yañez MD, FACS 03/14/2014 Dry nonexudative macular degeneration right eye 6 Mon th Follow-Up OCT Disc with Robin Bennett MD, FACS 03/14/2014 Macular puckering of the right eye 6 Month Follow-Up O CT Disc with Robin Bennett MD, FACS 03/14/2014 Mild stage glaucoma 6 Month Follow-Up OCT Disc w ith Robin Bennett MD, FACS 03/14/2014 Nuclear senile cataract both eyes 6 Month Follow-Up O CT Disc with Robin Bennett MD, FACS 03/14/2014 Primary open-angle glaucoma in both eyes 6 Month Follo w-Up OCT Disc with Robin Bennett MD, FACS 03/14/2014 Vitreous floaters in both eyes 6 Month Follow-Up OCT D isc with Robin Yañez MD, FACS 03/14/2014 Cortical senile cataract right eye 6 Month Follow-Up with Robin Bennett MD, FACS 08/29/2013 Drusen of both eyes 6 Month Follow-Up with Robin modi MD, FACS 08/29/2013 Dry eye syndrome of both eyes 6 Month Follow-Up with Nevaeh Bennett MD, FACS 08/29/2013 Macular puckering of the right eye 6 Month Follow-Up w ith Robin Bennett MD, FACS 08/29/2013 Mild stage glaucoma 6 Month Follow-Up with Robin modi MD, FACS 08/29/2013 Nuclear senile cataract both eyes 6 Month Follow-Up w ith Robin Bennett MD, FACS 08/29/2013 Open-angle glaucoma in both eyes 6 Month Follow-Up wit h Robin Bennett MD, FACS 08/29/2013 Vitreous floaters in both eyes 6 Month Follow-Up with Robin Bennett MD, FACS 08/29/2013 Drusen of both eyes 6 Month Follow-Up with Robin modi MD, FACS 02/07/2013 Dry eye syndrome of both eyes 6 Month Follow-Up with Nevaeh Bennett MD, FACS 02/07/2013 Macular puckering of the right eye 6 Month Follow-Up w ith Robin Bennett MD, FACS 02/07/2013 Mild stage glaucoma 6 Month Follow-Up with Robin modi MD, FACS 02/07/2013 Nuclear senile cataract of both eyes 6 Month Follow-U p with Robin Bennett MD, FACS 02/07/2013 Open-angle glaucoma in both eyes 6 Month Follow-Up wit h Robin Bennett MD, FACS 02/07/2013 Vitreous floaters in both eyes 6 Month Follow-Up with Robin Bennett MD, FACS 02/07/2013 Dry eye syndrome 4 Month Follow-Up with Robin modi MD, FACS 08/14/2012 Macular puckering 4 Month Follow-Up with Robin modi MD, FACS 08/14/2012 Macular puckering of the right eye 4 Month Follow-Up w ith Robin Bennett MD, FACS 08/14/2012 Nuclear senile cataract 4 Month Follow-Up with Robin Robles MD, FACS 08/14/2012 Open-angle glaucoma in the left eye 4 Month Follow-Up with Robin Bennett MD, FACS 08/14/2012 Open-angle glaucoma in the right eye 4 Month Follow-Up with Robin Bennett MD, FACS 08/14/2012 Senile cataract in both eyes 4 Month Follow-Up with Tip Bennett MD, FACS 08/14/2012 Vitreous floaters 4 Month Follow-Up with Robin modi MD, FACS 08/14/2012 Instructions Instructions not supported for this document typeNo Instructions Recorded Medical Equipment - Implanted Devices Includes: Current and historical DevicesNo Medical Equipment Recorded Medications Includes: Current and historical Medications Current Medications (continue as prescribed) Dorzolamide HCl 2% Ophthalmic Solution 03/31/2020 P rovider: Robin Bennett MD, FACS Diagnosis: Primary open-angle g laucoma, right eye, moderate stage One drop twice a day in both eyes Lumigan 0.01% Ophthalmic Solution 03/08/2019 Provid er: Robin Bennett MD, FACS Diagnosis: Primary open-angle g laucoma, right eye, moderate stage One drop in each eye at night time. Tylenol 650 MG Oral Tablet 10/02/2017 Provider: Diagnosis: 1-2 times a day Prolia injection Injectable 08/17/2015 Provider: Diagnosis: once every 6 months Simvastatin 40 MG OR TABS 08/14/2012 Provider: Diagnosis: Aspirin 81 MG OR TABS 08/14/2012 Provider: Diagnosis: Centrum Silver OR TABS 08/14/2012 Provider: Diagnosis: Calcium Citrate + D 250-200 MG-UNIT OR TABS 08/14/2012 Provider: Diagnosis: Eye Vitamins OR TABS 08/14/2012 Provider: Diagnosis: Past Medications on file Lotemax 0.5% Ophthalmic Suspension 02/04/2020 - 06/11/2020 P rovider: Robin Bennett MD, FACS Diagnosis: Acute atopic conjunc tivitis, bilateral One drop twice a day in both eyes for 2 weeks Alphagan P 0.1% Ophthalmic Solution 12/13/2019 - 06/11/2020 Provider: Robin Bennett MD, FACS Diagnosis: Primary open-angle g laucoma, right eye, moderate stage One drop twice a day in both eyes Alphagan P 0.1% Ophthalmic Solution 09/18/2018 - 12/13/2019 Provider: Robin Bennett MD, FACS Diagnosis: Primary open-angle g laucoma, right eye, moderate stage One drop twice a day in both eyes Plaquenil 200MG Oral Tablet 08/23/2018 - 08/23/2018 Provider : Diagnosis: Alphagan P 0.1% Ophthalmic Solution 08/03/2017 - 09/18/2018 Provider: Robin Bennett MD, FACS Diagnosis: Primary open-angle g laucoma, right eye, moderate stage One drop twice a day in both eyes Lumigan 0.01% Ophthalmic Solution 08/03/2017 - 03/08/2019 Pr ovider: Robin Bennett MD, FACS Diagnosis: Primary open-angle g laucoma, right eye, moderate stage One drop in each eye at night time. Lumigan 0.01% Ophthalmic Solution 03/31/2016 - 08/03/2017 Pr ovider: Robin Bennett MD, FACS Diagnosis: Primary open-angle g laucoma, right eye, moderate stage One drop in each eye at night time. NexIUM 40 MG Packet 08/17/2015 - 07/18/2016 Provider: Diagnosis: Lumigan 0.01% OP SOLN 08/29/2013 - 03/31/2016 Provider: Robin Bennett MD, FACS Diagnosis: Open-angle glaucoma NOS Tylenol 8 Hour 650 MG OR TBCR 08/14/2012 - 10/02/2017 Provid er: Diagnosis: NexIUM 40 MG OR PACK 08/14/2012 - 08/17/2015 Provider: Diagnosis: Lumigan 0.03% OP SOLN 08/14/2012 - 02/07/2013 Provider: Diagnosis: Lumigan 0.01% OP SOLN 08/14/2012 - 08/09/2013 Provider: Robin Bennett MD, FACS Diagnosis: Open-angle glaucoma NOS 1 DROP qhs ou Medications Administered Includes: Administered Medications in patient's chartNo Administered Medications Recorded Vital Signs Includes: Vital Signs from 01/25/2020 through 01/24/2021No Vital Signs Recorded For Specified Dates Results Includes: Results from 01/25/2020 through 01/24/2021No Results Recorded For Specified Dates History of Present Illness History of Present Illness not supported for this document typeNo History of Present Illness Recorded Social History Description Last Updated No consumption of alcohol 10/06/2020 Tobacco non-user 06/11/2020 Not using alcohol 02/04/2020 No tobacco use 02/04/2020 Not using drugs 02/04/2020 Smoking status : Never smoker 02/04/2020 Never smoked 03/08/2019 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 & Man.) [id number] Primary open-angle glaucoma, right eye, moderate stage, Primary open-angle glaucoma, left eye, mild stage Robin Bennett MD, CHAVEZ Bennett MD [facility] 10/06/2020 Intermediate Eye Exam Established Patient [id number] Primary open-angle glaucoma, left eye, mild stage, Primary open-angle glaucoma, right eye, moderate stage Robin Bennett MD, CHAVEZ Bennett MD [facility] 06/11/2020 Comprehensive eye exam established patient [id number] Primary open-angle glaucoma, right eye, moderate stage, Primary open-angle glaucoma, left eye, mild stage, Puckering of macula, bilateral, Nexdtve age-related mclr degn, bilateral, early dry stage Robin Bennett MD, CHAVEZ Bennett MD [facility] 2019 Intermediate Eye Exam Established Patient [id number] Acute atopic conjunctivitis, bilateral, Other chronic allergic conjunctivitis Robin Bennett MD, CHAVEZ Bennett MD [facility] 02/04/2020 Surgical History Last Updated Surgical / procedural history : Lumpectomy, Brain Tumo r, Knee Replacement 06/01/2014 Medical History Includes: Medical History in patient's chart Description Last Updated Reported medical history : GERD, Hernia 06/01/2014 No recent change in medical history 08/29/2013 Currently wearing eyeglasses - only for reading 02/07 History of hyperlipidemia 08/14/2012 Lumpectomy ~Brain Tumor ~Knee Replacement ~Hernia 0 08/14/2012 History of arthritis 08/14/2012 History of glaucoma 08/14/2012 Family History Includes: Family History in patient's chart Description Last Updated Maternal history of arthritis 02/04/2020 Maternal history of cataract 02/04/2020 Maternal history of hypertension 02/04/2020 Paternal history of heart disease 02/04/2020 Sororal history of family history of cancer 02/04/2020 Sororal history of arthritis 12/24/2014 Family history of arthritis 06/01/2014 Family history of heart disease 06/01/2014 Family history of hypertension 06/01/2014 1 brother(s) living 02/07/2013 1 sister(s) living 02/07/2013 2 siblings born 02/07/2013 4 children 02/07/2013 4 children living 02/07/2013 Father - Disease 02/07/2013 Mother - Disease 02/07/2013 Review of Systems Review of Systems not supported for this document typeNo Review of Systems Recorded Mental Status Mental Status not supported for this document typeNo Mental Status Recorded Functional Status Functional Status not supported for this document typeNo Functional Status Recorded Physical Exam Physical Exam not supported for this document typeNo Physical Exam Recorded Immunizations Includes: Immunizations in patient's chartNo Immunizations Recorded Allergies Includes: Active, inactive, and resolved Allergies Substance Type Reaction Onset Date - Time Resolved Date - Ti me Status Latex Allergy 02/07/2013 - 12:00AM Acti ve IVP Dye Allergy 08/14/2012 - 12:00AM Acti ve Dorzolamide HCl Intolerance eyes burn 06/11/2020 - 1:25PM Active Beta Adrenergic Blockers Allergy Asthma 10/02/2017 - 12:00AM Active Encounters Includes: Encounters from 01/25/2020 through 01/24/2021 Encounter Provider Location Date Check-In Time Check-Out Time D iagnosis VISUAL FIELD 24-2 Robin Bennett MD [facility] 01/07/2021 12:08P M 12:28PM IOP CHECK Robin Bennett MD, CHAVEZ Bennett MD [facility] 10/06/2020 12:14PM 12:59PM Glaucoma Open-angle Primary Right Eye, Glaucoma Open-angle Primary Left Eye IOP CHECK Robin Bennett MD, CHAVEZ Bennett MD [facility] 06/11/2020 12:53PM 1:28PM Glaucoma Open-angle Primary Left Eye, Glaucoma Open-angle Primary Right Eye 1 Year Follow-Up Robin Bennett MD, CHAVEZ Herring [facility] 03/31/2020 12:18PM 12:53PM Macular Puckering, G laucoma Open-angle Primary Right Eye, Glaucoma Open-angle Primary Left Eye, Macular Degeneration Nonexudative Bilateral Early Dry Stage TRIAGE NON URGENT Robin Bennett MD, CHAVEZ Bennett MD [facility] 02/04/2020 1:11PM 2:33PM Conjunctivitis Acute Atopic, Conjunctivitis Chronic Allergic Insurance Includes: Active Insurance Policies Plan Name Member ID Group # Subscriber Relationship Effective Da damien 1 - Medicare Part B [facility] ([facility]) [id number] Hiral Morales Self 2 - [facility] [id number] Hiral Morales Self Advance Directives Includes: Current Advance DirectivesNo Advance Directives Recorded Health Concerns Includes: Active Health ConcernsNo Active Health Concerns Recorded Goals Includes: Active GoalsNo Active Goals Recorded Interventions Includes: Interventions for active GoalsNo Interventions Recorded Evaluations & Outcomes Includes: Evaluations & Outcomes for active GoalsNo Outcomes Recorded
--- OUTSIDE RECORDS SUMMARY | 2021-03-11 07:11 | CCD ---
Author Author Robin Bennett MD [facility] Organization Robin Bennett MD [facility] Address [address] [address] Phone Care Team Providers Care Manager Product Name Role Phone Donald GARLAND, CHAVEZ, Robin Laura Unavailable [phone] Ponce SUPERVISOR PIPELINES, Tori PP [phone] Reason for Referral No Reason for Referral [...] Unchanged Macular Degeneration Nonexudative Dry 03/14/2014 - 12:00AM Robin Bennett MD, FACS Inactive Note: Unchanged - of the rig ht eye Glaucoma Open-angle Primary Both Eyes 03/14/2014 - :00AM Robin Bennett MD, FACS Inactive Note: Unchanged Cataract Senile Cortical 08/29/2013 - :00AM Robin Bennett MD, FACS Inactive Note: Unchanged - of the rig ht eye Macular Puckering Right Eye 08/29/2013 - 12:00AM Robin Bennett MD, FACS Inactive Note: Unchanged [...] Dry Eye Syndrome Both Eyes 02/07/2013 - 12:00AM Robin Bennett MD, FACS Active Note: Unchanged [...] FACS Future Appointments Date Time Location Provider [facility] 24-2 01/07/2021 12:30PM [facility] 5 Month Follow-Up 03/23/2021 1:55PM [facility] Robin Bennett MD, FACS Assessments Includes: Assessments [...] degeneration right eye 6 Mon th Follow-Up with Robin Bennett MD, FACS 12/24/2014 [...] macular degeneration right eye 6 Mon Follow-Up OCT Disc with Robin Bennett MD, [...] both eyes 6 Month Follow-Up w ith Robni Bennett MD, FACS 08/29/2013 Open-angle glaucoma in [...] the right eye 6 Month Follow-Up w brenda Robin Bennett MD, FACS 02/07/2013 Mild stage [...] the right eye 4 Month Follow-Up w brenda Robin Bennett MD, FACS 08/14/2012 Nuclear senile [...] Recorded Vital Signs Includes: Vital Signs from 01/04/2020 through 01/03/2021No Vital Signs Recorded For Specified Dates Results Includes: Results from 01/04/2020 through 01/03/2021No Results Recorded For Specified Dates History of Present Illness History of Present Illness not supported for this document typeNo History of Present Illness Recorded Social History Description Last Updated No consumption of alcohol 10/06/2020 Tobacco non-user 06/11/2020 No tobacco use 06/11/2020 Not using alcohol 06/11/2020 Not using drugs 06/11/2020 Smoking status : Never smoker 06/11/2020 Never smoked 03/08/2019 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 & Man.) 28782 Primary open-angle glaucoma, right eye, moderate stage, Primary open-angle glaucoma, left eye, mild stage Robin Bennett MD, FACS Robin Bennett MD [facility] 10/06/2020 Intermediate Eye Exam Established Patient 65043 Primary open-angle glaucoma, left eye, mild stage, Primary open-angle glaucoma, right eye, moderate stage Robin Bennett MD, FACS Robin Bennett MD [facility] 06/11/2020 Comprehensive eye exam established patient 96908 Primary open-angle glaucoma, right eye, moderate stage, Primary open-angle glaucoma, left eye, mild stage, Puckering of macula, bilateral, Nexdtve age-related mclr degn, bilateral, early dry stage Robin Bennett MD, FACS Robin Bennett MD [facility] 2019 Intermediate Eye Exam Established Patient 24302 Acute atopic conjunctivitis, bilateral, Other chronic allergic conjunctivitis Robin Bennett MD, FACS Robin Bennett MD [facility] 02/04/2020 Surgical History Last Updated Surgical / [...] Description Last Updated Maternal history of arthritis 06/11/2020 Maternal history of cataract 06/11/2020 Maternal history of hypertension 06/11/2020 Paternal history of heart disease 06/11/2020 Sororal history of family history of cancer 06/11/2020 Sororal history of arthritis 12/24/2014 Family history [...] Mental Status not supported for this document type Description Oriented to time, place, and person Functional Status Functional Status not supported for [...] - 12:00AM Active Encounters Includes: Encounters from 01/04/2020 through 01/03/2021 Encounter Provider Location Date Check-In Time Check-Out Time D iagnosis IOP CHECK Robin Bennett MD, CHAVEZ Bennett MD [facility] 10/06/2020 12:14PM 12:59PM Glaucoma Open-angle Primary Right Eye, Glaucoma Open-angle Primary Left Eye IOP CHECK Robin Bennett MD, CHAVEZ Bennett MD [facility] 06/11/2020 12:53PM 1:28PM Glaucoma Open-angle Primary Left Eye, Glaucoma Open-angle Primary Right Eye 1 Year Follow-Up Robin Bennett MD, CHAVEZ Herring [facility] 03/31/2020 12:18PM 12:53PM Macular Puckering, G [place] Open-angle Primary Right Eye, Glaucoma Open-angle Primary Left Eye, Macular Degeneration Nonexudative Bilateral Early Dry Stage TRIAGE NON URGENT Robin Bennett MD, CHAVEZ Bennett MD [facility] 02/04/2020 1:11PM 2:33PM Conjunctivitis Acute Atopic, Conjunctivitis Chronic Allergic Insurance Includes: Active Insurance Policies Plan Name Member ID Group # Subscriber Relationship Effective Da damien 1 - Medicare Part B [facility] ([facility]) [id number] Hiral Mao - [facility] [id number] Hiral Morales Self Advance Directives Includes: Current Advance DirectivesNo Advance Directives Recorded Health Concerns Includes: Active Health ConcernsNo Active Health Concerns Recorded Goals Includes: Active GoalsNo Active Goals Recorded Interventions Includes: Interventions for active GoalsNo Interventions Recorded Evaluations & Outcomes Includes: Evaluations & Outcomes for active GoalsNo Outcomes Recorded
--- OUTSIDE RECORDS SUMMARY | 2021-03-11 07:11 | CCD | Continuity of Care Document ---
Author Author Hiral Garcia M.D. Organization Unknown Address [address] [facility] [address] [place] [address] Phone [phone] Care Team Providers Care Night Warehouse Manager Name Role Phone Tavares Gibbs MD [facility] [phone] Robin Bennett MD [facility] [phone] Alia Garcia MD [facility] [phone] Problems Active Problems Provider Date Embolism from [...] Alia Garcia M.D. 02/03/20 21 Calcium 600+D [id number] Table ts 1 by mouth every day Alia Garcia M.D. 02/03/20 21 Melatonin ER 3mg Tablets ER 1 by mouth at bedtime Alia Garcia M.D. 02/03/20 21 Ropinirole HCL 0.5mg Tablets Take 1 Tablet Once AT Dinner and 1 po prn 120tabs Leonie Kendall 02/02/2021 Centrum Silver Tablets 1 by mouth [...] 1 drop left eye twice a day DAT Smith 02/12/2018 Prolia 60mg/ml Soln Prefill Syring e inject under the skin every 6 months 1undestini M81.0 Alia Garcia M.D. 08/01/2016 Right Breast Prosthesis as directed dx:c50.919 1unDAT Estrada 05/21/2015 Mastectomy Bra [facility] as directed dx c50.919 6unDAT Estrada 06/23/2011 Preservision Areds Capsules 1 by mouth every day 30caps Unknown Zinc 30mg Capsules 1 by mo uth every day Unknown Dorzolamide HCL 2% Solution both eyes 1 drop twice a day Unknown Medications Administered in Office Medication SIG Qnty Indications Ordering Provider Date Prolia (catrachoosumab) 60mg,SC injection, ND C#[id number] Injection Nurse Schedul e 09/16/2020 Therapeutic Injection Injection Nurse Schedule 09/16/2020 Covid-19 vaccine, Unspecified Inj ection Unknown 06/19/2020 Covid-19 vaccine, Unspecified Inj ection Unknown 05/22/2020 Prolia (denosumab) 60mg,SC injection, ND C#[id number] Injection Nurse Schedul e 03/16/2020 Therapeutic Injection Injection Nurse Schedule 03/16/2020 Administration Of Flu Vaccine Inj ection Alia Garcia M.D. 01/28/20 20 Prolia (denosumab) 60mg,SC injection, ND C#[id number] Injection Tori Hill er, ANP 09/10/2019 Therapeutic Injection Injection Nurse Schedule 09/10/2019 Administration Of Flu Vaccine Inj ection Tori Finch, [facility] 02/20/2019 Prolia (denosumab) 60mg,SC injection, ND C#[id number] Injection Tori Hill , [facility] 11/14/2018 Prolia (denosumab) 60mg,SC injection, ND C#[id number] Injection Nurse Sched e 11/14/2018 Chemotherpy Admin Subcutaneous/Im Non-Ho rmonal Anti-Neoplastic Injection Tori denise, [facility] 11/14/2018 Chemotherpy Admin Subcutaneous/Im Non-Ho rmonal Anti-Neoplastic Injection Nurse [facility] 11/14/2018 Prolia (denosumab) 60mg,SC injection, ND C#[id number] Injection Nurse Sched e 03/28/2018 Chemotherpy Admin Subcutaneous/Im Non-Ho rmonal Anti-Neoplastic Injection Nurse [facility] 03/28/2018 Administration Of Flu Vaccine Inj ection Tori Finch, [facility] 02/12/2018 Prolia (denosumab) 60mg,SC injection, ND C#[id number] Injection Tori Hill , ANP 09/12/2017 Chemotherpy Admin Subcutaneous/Im Non-Ho rmonal Anti-Neoplastic Injection Tori denise, [facility] 09/12/2017 Prolia (denosumab) 60mg,SC injection, ND C#[id number] Injection Nurse Sched e 03/08/2017 Chemotherpy Admin Subcutaneous/Im Non-Ho rmonal Anti-Neoplastic Injection Nurse [facility] 03/08/2017 Administration Of Flu Vaccine Inj annaleeion Hu James MD 02/07/2017 Chemotherpy Admin Subcutaneous/Im Non-Ho rmonal Anti-Neoplastic Injection Nurse [facility] [place] 04/13/2016 Administration Of Flu Vaccine Inj ection Tori Finch, ANP 02/16/2016 Chemotherpy Admin Subcutaneous/Im Non-Ho rmonal Anti-Neoplastic Injection Nurse Rodger fischer 03/27/2015 Administration Of Flu Vaccine Inj annaleeion Hu James MD 02/04/2015 Chemotherpy Admin Subcutaneous/Im Non-Ho rmonal Anti-Neoplastic Injection Nurse Rodger fischer 09/25/2014 Chemotherpy Admin Subcutaneous/Im Non-Ho rmonal Anti-Neoplastic Injection Nurse [facility] [place] 03/27/2014 Administration Of Flu Vaccine [...] CPT Code Status Date Vaccine Lot # [id number] Given 02/02/2021 Influenza Vaccin e Quadrivalent Preser/Antibiotic Free Im Use [id number] 91354 Given 01/28/2020 Influenza Vaccin e Quadrivalent Preser/Antibiotic Free Im Use [id number] 32781 Given 02/20/2019 Influenza Vaccin e Quadrivalent Preser/Antibiotic Free Im Use 132877 15458 Given 03/16/2018 Shingrix Zoster Vaccine (HZV), Recombinant, Subunit, Adjuvanted 72361 Given 02/12/2018 Influenza Virus Vaccine, Quadrivalent (Cciiv4), Derived From 2 Given 08/19/2017 Shingrix 77080 Given 08/19/2017 Shingrix Zoster Vaccine (HZV), Recombinant, Subunit, Adjuvanted 60451 Given 02/07/2017 Influenza Vaccin e Quadrivalent Preser/Antibiotic Free Im Use 588181 U-PneuC Given 02/19/2016 Prevnar 13 Q2037 Given 02/16/2016 Fluvirin Virus Vaccine 32271 01 Q2037 Given 02/04/2015 Fluvirin Virus Vaccine 68766 01 66925 Given 02/11/2014 Pneumovax 23 [id number] Q2037 Given 02/11/2014 Fluvirin Virus Vaccine 33816 21 90237 Given 08/12/2013 Adacel- Tetanus Diphtheria P ertussis [id number] Q2037 Given 02/04/2013 Fluvirin Virus Vaccine Q2037 Given 01/19/2012 Fluvirin Virus Vaccine Q2037 Given 02/28/2011 Fluvirin Virus Vaccine 45955 Given 02/15/2010 Influenza Virus Vaccine 38314 Given 02/03/2009 Influenza Virus Vaccine 50953 Given 01/23/2008 Influenza Virus Vaccine 69854 Given 02/07/2007 Influenza Virus Vaccine 47876 Given 08/16/2006 Zoster Vaccine 60275 Given 03/21/2006 Influenza Virus Vaccine 24777 Given 03/03/2005 Influenza Virus Vaccine 85974 Given 01/26/2004 Influenza Virus Vaccine Vital Signs [...] Date Facility Test Result H/L Range Note Laboratory test finding 02/02/2021 [facility] [address] [place] [address] [phone] Phosphorous Level <pending> Laboratory test finding 02/02/2021 [facility] meme, Therapist: [place] [address] [phone] CK <pending> Magnesium, Serum <pending> Laboratory test finding 02/02/2021 [facility] meme, Therapist: [place] [address] [phone] Bilirubin, Direct <pending> Laboratory test finding 02/02/2021 [facility] meme Therapist: [place] [address] [phone] TSH <pending> Laboratory test finding 02/02/2021 [facility] meme Therapist: [place] [address] [phone] Vitamin D 25-Hydroxy <pending> Basic Metabolic Panel 09/07/2020 [facility] Therapist: [place] [address] [phone] Glucose 93 mg/dL 74 - 99 1 BUN 15 mg/dL 7 - 18 Creatinine 0.7 mg/dL 0.6 - 1.3 Sodium 143 mEq/L 136 - 145 Potassium 4.1 mEq/L 3.5 - 5.1 Chloride 107 mEq/L 98 - 107 Carbon Dioxide 31 mEq/L 21 - 32 Calcium 8.9 mg/dL 8.5 - 10.1 GFR >= 60 mL/min >60 GFR >= 60 mL/min >60 2 Laboratory test finding 09/07/2020 [facility] meme Therapist: [place] [address] [phone] Magnesium 2.2 mg/dL 1.8 - 2.4 Laboratory test finding 09/07/2020 [facility] [address] [place], [place] [id number] [phone] Phosphorus Level 3.9 mg/dL Normal 2.5-4.9 1 100-125 mg/dL PRE-DIABET ES/FASTING >126 mg/dL DIABETES/FASTING 2 CHRONIC KIDNEY DISEASE STAGI NG PER NKF STAGE I & II GFR >= 60 NORMAL TO MILDLY DECREASED STAGE III GFR 30-59 MODERATELY DECREASED STAGE IV GFR 15-29 SEVERELY DECREASED STAGE V GFR <15 VERY LITTLE GFR LEFT ESRD GFR <15 ON INTERNATIONAL PROJECT ENGINEER Procedures Date Code Description Status 12/17/2020 11056 Chronic Care Management Services Ea Addl 20 Min Completed 12/17/2020 17566 Chronic Care MGMT 20 Mins Clinical Staff Time Per Calendar Month Completed 11/02/2020 27350 Chronic Care MGMT 20 Mins Clinical Staff Time Per Calendar Month Completed 11/02/2020 21160 Chronic Care Management Services Ea Addl 20 Min Completed 10/21/2020 [id number] Bone Mineral Density Test Comple [facility] 10/21/2020 [id number] Mammogram Completed 09/16/2020 07123 Therapeutic Injection Completed 09/15/2020 34841 Chronic Care MGMT 20 Mins Clinical Staff Time Per Calendar Month Completed 08/13/2020 43694 Chronic Care Management Services Ea Addl 20 Min Completed 08/13/2020 22847 Chronic Care MGMT 20 Mins Clinical Staff Time Per Calendar Month Completed 10/17/2019 [id number] Mammogram Completed 03/26/2018 [id number] Bone Mineral Density Test [facility] 03/26/2018 [id number] Mammogram Completed 03/27/2017 [id number] Mammogram Completed 03/24/2016 [id number] Bone Mineral Density Test Comple [facility] 03/24/2016 [id number] Mammogram Completed 03/12/2015 [id number] Mammogram Completed 03/06/2014 [id number] Bone Mineral Density Test Comple [facility] 03/06/2014 [id number] Mammogram Completed 02/11/2013 [id number] Mammogram Completed 02/10/2012 [id number] Mammogram Completed 07/14/2011 [id number] Colonoscopy Completed 02/16/2011 [id number] Bone Mineral Density Test [facility] 02/04/2011 [id number] Mammogram Completed 02/03/2010 [id number] Mammogram Completed 01/30/2009 [id number] Bone Mineral Density Test [facility] 10/05/2007 [id number] Colonoscopy Completed Medical Devices Description No Information Available Encounters Description No Information Available Assessments Date Code Description Provider 12/17/2020 K21.9 Gastro-esophageal reflux disease without esophagitis [...] hypertension Alia Garcia M.D. Plan of Treatment 02/02/2021 - Alia Garcia M.D.* All * New Medication:* Ropinirole HCL 0.5 mg - Take 1 Tablet Once AT Dinner and 1 po prn * Tylenol 8 Hour Arthritis Pain 650 mg - 1-2x/day as needed * Vitamin D3 25 mcg (1000 Ut) - 1 by mouth every day * Calcium 600+D 600-400 mg-Unit - 1 by mouth every day * Melatonin ER 3 mg - 1 by mouth at bedtime Functional Status Description No Information Available Mental Status Description No Information Available Referrals Description No Information Available
--- OUTSIDE RECORDS SUMMARY | 2021-03-11 07:11 | CCD | Continuity of Care Document ---
Author Author Hiral Garcia M.D. Organization Unknown Address [address] [facility] [address] [place] [address] Phone [phone] Care Team Providers Care Die Repair Name Role Phone Tavares Gibbs MD AUTM [phone] Robin Bennett MD AUTM [phone] Alia Garcia MD AUTM [phone] Problems Active Problems Provider Date Embolism from [...] Alia Garcia M.D. 02/03/20 21 Calcium 600+D [id number] Table ts 1 by mouth every day [...] directed dx:c50.919 1unDAT Estrada 05/21/2015 Mastectomy Bra [facility] as directed dx c50.919 6unDAT Estrada 06/23/2011 Preservision Areds Capsules 1 by mouth every day 30caps Unknown Zinc 30mg Capsules 1 by mo uth every day Unknown Dorzolamide HCL 2% Solution both eyes 1 drop twice a day Unknown Medications Administered in Office Medication SIG Qnty Indications Ordering Provider Date Prolia (denosumab) 60mg,SC injection, ND C#[id number] Injection Nurse Schedul e 09/16/2020 Therapeutic Injection Injection Nurse Schedule 09/16/2020 Covid-19 vaccine, Unspecified Inj ection Unknown 06/19/2020 Covid-19 vaccine, Unspecified Inj ection Unknown 05/22/2020 Prolia (denosumab) 60mg,SC injection, ND C#[id number] Injection Nurse Schedul e 03/16/2020 Therapeutic Injection Injection Nurse Schedule 03/16/2020 Administration Of Flu Vaccine Inj ection Alia Garcia M.D. 01/28/20 20 Prolia (denosumab) 60mg,SC injection, ND C#[id number] Injection Tori Hill er, ANP 09/10/2019 Therapeutic Injection Injection Nurse Schedule 09/10/2019 Administration Of Flu Vaccine Inj ection Tori Finch, [facility] 02/20/2019 Prolia (denosumab) 60mg,SC injection, ND C#[id number] Injection Tori Hill , [facility] 11/14/2018 Prolia (denosumab) 60mg,SC injection, ND C#[id number] Injection Nurse Sched e 11/14/2018 Chemotherpy Admin Subcutaneous/Im Non-Ho rmonal Anti-Neoplastic Injection Tori denise, [facility] 11/14/2018 Chemotherpy Admin Subcutaneous/Im Non-Ho rmonal Anti-Neoplastic Injection Nurse [facility] 11/14/2018 Prolia (denosumab) 60mg,SC injection, ND C#[id number] Injection Nurse Sched e 03/28/2018 Chemotherpy Admin Subcutaneous/Im Non-Ho rmonal Anti-Neoplastic Injection Nurse [facility] 03/28/2018 Administration Of Flu Vaccine Inj ection Tori Finch, [facility] 02/12/2018 Prolia (denosumab) 60mg,SC injection, ND C#[id number] Injection Tori Hill , ANP 09/12/2017 Chemotherpy Admin Subcutaneous/Im Non-Ho rmonal Anti-Neoplastic Injection Tori denise, ANP 09/12/2017 Prolia (denosumab) 60mg,SC injection, ND C#[id number] Injection Nurse Sched e 03/08/2017 Chemotherpy Admin Subcutaneous/Im Non-Ho rmonal Anti-Neoplastic Injection Nurse [facility] 03/08/2017 Administration Of Flu Vaccine Inj annaleeion Hu James MD 02/07/2017 Chemotherpy Admin Subcutaneous/Im Non-Ho rmonal Anti-Neoplastic Injection Nurse [facility] [place] 04/13/2016 Administration Of Flu Vaccine Inj ection Tori Finch, ANP 02/16/2016 Chemotherpy Admin Subcutaneous/Im Non-Ho rmonal Anti-Neoplastic Injection Nurse Rodger fischer 03/27/2015 Administration Of Flu Vaccine Inj ection Hu James MD 02/04/2015 Chemotherpy Admin Subcutaneous/Im Non-Ho rmonal Anti-Neoplastic Injection Nurse Rodger fischer 09/25/2014 Chemotherpy Admin Subcutaneous/Im Non-Ho rmonal Anti-Neoplastic Injection Nurse [facility] [place] 03/27/2014 Administration Of Flu [...] CPT Code Status Date Vaccine Lot # 03699 Given 02/02/2021 Influenza Vaccin e Quadrivalent Preser/Antibiotic Free Im Use [id number] 12326 Given 01/28/2020 Influenza Vaccin e Quadrivalent Preser/Antibiotic Free Im Use 232840 80949 Given 02/20/2019 Influenza Vaccin e Quadrivalent Preser/Antibiotic Free Im Use 499362 91026 Given 03/16/2018 Shingrix Zoster Vaccine (HZV), Recombinant, Subunit, Adjuvanted 23698 Given 02/12/2018 Influenza Virus Vaccine, Quadrivalent (Cciiv4), Derived From 1 Given 08/19/2017 Shingrix 47346 Given 08/19/2017 Shingrix Zoster Vaccine (HZV), Recombinant, Subunit, Adjuvanted 22400 Given 02/07/2017 Influenza Vaccin e Quadrivalent Preser/Antibiotic Free Im Use 796184 U-PneuC Given 02/19/2016 Prevnar 13 Q2037 Given 02/16/2016 Fluvirin Virus Vaccine 88549 01 Q2037 Given 02/04/2015 Fluvirin Virus Vaccine 75235 01 52410 Given 02/11/2014 Pneumovax 23 [id number] Q2037 Given 02/11/2014 Fluvirin Virus Vaccine 11446 21 38452 Given 08/12/2013 Adacel- Tetanus Diphtheria P ertussis [id number] Q2037 Given 02/04/2013 Fluvirin Virus Vaccine Q2037 Given 01/19/2012 Fluvirin Virus Vaccine Q2037 Given 02/28/2011 Fluvirin Virus Vaccine 78026 Given 02/15/2010 Influenza Virus Vaccine 80927 Given 02/03/2009 Influenza Virus Vaccine 30910 Given 01/23/2008 Influenza Virus Vaccine 03159 Given 02/07/2007 Influenza Virus Vaccine 95004 Given 08/16/2006 Zoster Vaccine 42678 Given 03/21/2006 Influenza Virus Vaccine 09453 Given 03/03/2005 Influenza Virus Vaccine 95698 Given 01/26/2004 Influenza Virus Vaccine Vital Signs [...] H/L Range Note Laboratory test finding 02/02/2021 [facility] [address], [place] [id number] [phone] Phosphorous Level <pending> Complete Blood Count 02/02/2021 [facility] Green Coffee Blender: [place] [address] [phone] WBC 3.4 x10*3/UL Low 4.1 - 10.9 [...] 2.0 - 7.8 Laboratory test finding 02/02/2021 [facility] Green Coffee Blender: [place] [address] [phone] Creatine Kinase(CK) 88 U/L 26 - 192 Magnesium 2.2 mg/dL 1.8 - 2.4 Comprehensive Chem Profile 02/02/2021 [facility] Green Coffee Blender: [place] [address] [phone] Glucose 94 mg/dL 74 - 99 1 [...] mL/min >60 2 Laboratory test finding 02/02/2021 [place] [facility] Green Coffee Blender: [place] [address] [phone] Direct Bilirubin 0.2 mg/dL 0.0 - 0.2 Lipid Profile 02/02/2021 [place] [facility] , Green Coffee Blender: Dr Hu Diop [place] [address] [phone] Cholesterol 184 mg/dL 131 - 200 Triglycerides 85 mg/dL 30 - 150 HDL Cholesterol 99 mg/dL High 35 - 60 LDL (Calculated) 68 CALC 50 - 159 Laboratory test finding 02/02/2021 [place] [facility] Green Coffee Blender: Dr Hu Diop [place] [address] [phone] Thyroid Stimulating Hormone 0.57 uIU/mL 0.3 6 - 3.74 Laboratory test finding 02/02/2021 [place] [facility] Green Coffee Blender: Dr Hu Diop [place] [address] [phone] Vitamin D 25-Hydroxy <pending> Basic Metabolic Panel 09/07/2020 [place] [facility] Green Coffee Blender: Dr Hu Deewmaryana [place] [address] [phone] Glucose 93 mg/dL 74 - 99 3 BUN 15 mg/dL 7 - 18 Creatinine 0.7 mg/dL 0.6 - 1.3 Sodium 143 mEq/L 136 - 145 Potassium 4.1 mEq/L 3.5 - 5.1 Chloride 107 mEq/L 98 - 107 Carbon Dioxide 31 mEq/L 21 - 32 Calcium 8.9 mg/dL 8.5 - 10.1 GFR >= 60 mL/min >60 GFR >= 60 mL/min >60 4 Laboratory test finding 09/07/2020 [place] [facility] Green Coffee Blender: [place] [address] [phone] Magnesium 2.2 mg/dL 1.8 - 2.4 Laboratory test finding 09/07/2020 [facility] [address] [place] [address] [phone] Phosphorus Level 3.9 mg/dL Normal 2.5-4.9 1 100-125 mg/dL PRE-DIABET ES/FASTING >126 mg/dL DIABETES/FASTING 2 CHRONIC KIDNEY DISEASE STAGI NG PER NKF STAGE I & II GFR >= 60 NORMAL TO MILDLY DECREASED STAGE III GFR 30-59 MODERATELY DECREASED STAGE IV GFR 15-29 SEVERELY DECREASED STAGE V GFR <15 VERY LITTLE GFR LEFT ESRD GFR <15 ON SOLAR ENERGY SYSTEMS ENGINEER 3 100-125 mg/dL PRE-DIABET ES/FASTING >126 mg/dL DIABETES/FASTING 4 CHRONIC KIDNEY DISEASE STAGI NG PER NKF STAGE I & II GFR >= 60 NORMAL TO MILDLY DECREASED STAGE III GFR 30-59 MODERATELY DECREASED STAGE IV GFR 15-29 SEVERELY DECREASED STAGE V GFR <15 VERY LITTLE GFR LEFT ESRD GFR <15 ON SOLAR ENERGY SYSTEMS ENGINEER Procedures Date Code Description Status 12/17/2020 53345 Chronic Care Management Services Ea Addl 20 Min Completed 12/17/2020 07602 Chronic Care MGMT 20 Mins Clinical Staff Time Per Calendar Month Completed 11/02/2020 52075 Chronic Care MGMT 20 Mins Clinical Staff Time Per Calendar Month Completed 11/02/2020 36323 Chronic Care Management Services Ea Addl 20 Min Completed 10/21/2020 190495002 Bone Mineral Density Test Comple [facility] 10/21/2020 79416277 Mammogram Completed 09/16/2020 68669 Therapeutic Injection Completed 09/15/2020 11054 Chronic Care MGMT 20 Mins Clinical Staff Time Per Calendar Month Completed 08/13/2020 21294 Chronic Care Management Services Ea Addl 20 Min Completed 08/13/2020 59931 Chronic Care MGMT 20 Mins Clinical Staff Time Per Calendar Month Completed 10/17/2019 29486958 Mammogram Completed 03/26/2018 200313399 Bone Mineral Density Test Comple [facility] 03/26/2018 99557737 Mammogram Completed 03/27/2017 31488493 Mammogram Completed 03/24/2016 791427218 Bone Mineral Density Test Comple [facility] 03/24/2016 04821202 Mammogram Completed 03/12/2015 14276371 Mammogram Completed 03/06/2014 265809324 Bone Mineral Density Test Comple [facility] 03/06/2014 76456960 Mammogram Completed 02/11/2013 17844251 Mammogram Completed 02/10/2012 31731298 Mammogram Completed 07/14/2011 13029606 Colonoscopy Completed 02/16/2011 093492364 Bone Mineral Density Test Comple [facility] 02/04/2011 70869319 Mammogram Completed 02/03/2010 89292697 Mammogram Completed 01/30/2009 788691694 Bone Mineral Density Test Comple [facility] 10/05/2007 01944729 Colonoscopy Completed Medical Devices Description No Information [...] hypertension Alia Garcia M.D. 09/07/2020 Z79.899 [facility] Alia Garcia M.D. 09/07/2020 Z79.899 [facility]current[facility] Lab Schedule 09/07/2020 I10 Essential (primary) hypertension Alia Garcia M.D. 09/07/2020 I10 Essential (primary) hypertension Lab Schedule 08/13/2020 E78.00 Pure hypercholesterolemia, unspe cified Alia Garcia M.D. 08/13/2020 G25.81 Restless legs syndrome Alia Garcia M.D. 08/13/2020 K21.9 Gastro-esophageal reflux disease without esophagitis Alia Garcia M.D. 08/13/2020 I10 Essential (primary) hypertension Alia Garcia M.D. Plan of Treatment Future Appointment(s):* 02/03/2021 1:10 pm - Lab Schedule at [facility] * 08/03/2021 9:00 am - Alia Garcia M.D. at [facility] * 03/23/2021 1:40 pm - Nurse Schedule at [facility] 02/02/2021 - Alia Garcia M.D.* E78.00 Pure [...] ca of the face. Following through at [facility]. Health Maintenance. paperwork is reviewed. She [...]
--- OUTSIDE RECORDS SUMMARY | 2021-03-11 07:11 | CCD | Continuity of Care Document ---
Author Author Lab Schedule, Hiral Hadley Organization Unknown Address [address] [address] Phone Unavailable Care Team Providers Care Furniture Arranger Name Role Phone Fuquay Varina, Tavares Hawthorne MD AUTM [phone] Robin Bennett MD AUTM [phone] Alia Garcia MD AUTM [phone] Problems Active Problems Provider Date Embolism from [...] day Alia Garcia M.D. 02/03/20 Calcium 600+D [id number] Table ts 1 by mouth every day [...] 1units Tori Finch, DAT 05/21/2015 Mastectomy Bra [facility] as directed dx c50.919 6units DAT Smith 06/23/2011 Preservision Areds Capsules 1 by mouth every day 30caps Unknown Zinc 30mg Capsules 1 by mo uth every day Unknown Dorzolamide HCL 2% Solution both eyes 1 drop twice a day Unknown Medications Administered in Office Medication SIG Qnty Indications Ordering Provider Date Prolia (denosumab) 60mg,SC injection, ND C#[id number] Injection Nurse Schedul e 09/16/2020 Therapeutic Injection Injection Nurse Schedule 09/16/2020 Covid-19 vaccine, Unspecified Inj ection Unknown 06/19/2020 Covid-19 vaccine, Unspecified Inj ection Unknown 05/22/2020 Prolia (denosumab) 60mg,SC injection, ND C#[id number] Injection Nurse Schedul e 03/16/2020 Therapeutic Injection Injection Nurse Schedule 03/16/2020 Administration Of Flu Vaccine Inj ection Alia Garcia M.D. 01/28/20 20 Prolia (denosumab) 60mg,SC injection, ND C#[id number] Injection Tori Hill er, ANP 09/10/2019 Therapeutic Injection Injection Nurse Schedule 09/10/2019 Administration Of Flu Vaccine Inj ection Tori Finch, [facility] 02/20/2019 Prolia (denosumab) 60mg,SC injection, ND C#[id number] Injection Tori Hill , ANP 11/14/2018 Prolia (denosumab) 60mg,SC injection, ND C#[id number] [facility]/14[facility]2018 Chemotherpy Admin Subcutaneous/Im Non-Ho rmonal Anti-Neoplastic Injection Tori denise, [facility] 11/14/2018 Chemotherpy Admin Subcutaneous/Im Non-Ho rmonal Anti-Neoplastic Injection Nurse [facility] 11/14/2018 Prolia (denosumab) 60mg,SC injection, ND C#[id number] Injection Nurse Sched e 03/28/2018 Chemotherpy Admin Subcutaneous/Im Non-Ho rmonal Anti-Neoplastic Injection Nurse [facility] 03/28/2018 Administration Of Flu Vaccine Inj ection Tori Finch, [facility] 02/12/2018 Prolia (denosumab) 60mg,SC injection, ND C#[id number] Injection Tori Hill , [facility] 09/12/2017 Chemotherpy Admin Subcutaneous/Im Non-Ho rmonal Anti-Neoplastic Injection Tori denise, [facility] 09/12/2017 Prolia (denosumab) 60mg,SC injection, ND C#[id number] Injection Nurse Sched e 03/08/2017 Chemotherpy Admin Subcutaneous/Im Non-Ho rmonal Anti-Neoplastic Injection Nurse [facility] 03/08/2017 Administration Of Flu Vaccine Inj ection Hu James MD 02/07/2017 Chemotherpy Admin Subcutaneous/Im Non-Ho rmonal Anti-Neoplastic Injection Nurse [facility] amado 04/13/2016 Administration Of Flu Vaccine Inj ection Tori Finch, ANP 02/16/2016 Chemotherpy Admin Subcutaneous/Im Non-Ho rmonal Anti-Neoplastic Injection Nurse Rodger fischer 03/27/2015 Administration Of Flu Vaccine Inj ection Hu James MD 02/04/2015 Chemotherpy Admin Subcutaneous/Im Non-Ho rmonal Anti-Neoplastic Injection Nurse Rodger fischer 09/25/2014 Chemotherpy Admin Subcutaneous/Im Non-Ho rmonal Anti-Neoplastic Injection Nurse [facility] amado 03/27/2014 Administration Of Flu Vaccine Inj ection Tori Finch, [facility] 02/11/2014 Administration Of Flu Vaccine Inj [...] CPT Code Status Date Vaccine Lot # [id number] Given 02/02/2021 Influenza Vaccin e Quadrivalent Preser/Antibiotic Free Im Use 188513 86965 Given 01/28/2020 Influenza Vaccin e Quadrivalent Preser/Antibiotic Free Im Use 982693 74360 Given 02/20/2019 Influenza Vaccin e Quadrivalent Preser/Antibiotic Free Im Use 672145 70511 Given 03/16/2018 Shingrix Zoster Vaccine (HZV), Recombinant, Subunit, Adjuvanted 14126 Given 02/12/2018 Influenza Virus Vaccine, Quadrivalent (Cciiv4), Derived From 6 Given 08/19/2017 Shingrix 70776 Given 08/19/2017 Shingrix Zoster Vaccine (HZV), Recombinant, Subunit, Adjuvanted 09448 Given 02/07/2017 Influenza Vaccin e Quadrivalent Preser/Antibiotic Free Im Use [id number] U-PneuC Given 02/19/2016 Prevnar 13 Q2037 Given 02/16/2016 Fluvirin Virus Vaccine 02374 01 Q2037 Given 02/04/2015 Fluvirin Virus Vaccine 45636 01 57266 Given 02/11/2014 Pneumovax 23 [id number] Q2037 Given 02/11/2014 Fluvirin Virus Vaccine 79245 21 85618 Given 08/12/2013 Adacel- Tetanus Diphtheria P ertussis [id number] Q2037 Given 02/04/2013 Fluvirin Virus Vaccine Q2037 Given 01/19/2012 Fluvirin Virus Vaccine Q2037 Given 02/28/2011 Fluvirin Virus Vaccine 06462 Given 02/15/2010 Influenza Virus Vaccine 44120 Given 02/03/2009 Influenza Virus Vaccine 83057 Given 01/23/2008 Influenza Virus Vaccine 68054 Given 02/07/2007 Influenza Virus Vaccine 46790 Given 08/16/2006 Zoster Vaccine 47537 Given 03/21/2006 Influenza Virus Vaccine 75191 Given 03/03/2005 Influenza Virus Vaccine 57603 Given 01/26/2004 Influenza Virus Vaccine Vital Signs [...] Dipstick Only 02/03/2021 [facility] Jute Bag Cutting Machine Operator: Dr Hu James [place] [id number] [phone] Urine Color YELLOW Yellow Urine Appearance SL. HAZY Abnormal Clear Urine PH 6.0 units 5.0 - 9.0 Urine Specific [place] 1.015 1.005 - 1.030 Urine Leukocytes TRACE Abnormal Negative Urine Blood NEGATIVE Negative Urine Protein NEGATIVE Negative -Trace Urine Glucose NEGATIVE mg/dL Negative Urine Nitrite NEGATIVE Negative Urine Ketone NEGATIVE mg/dL Negative Urine Bilirubin NEGATIVE Negative Urine Urobilinogen 0.2 mg/dL 0.2 - 1.0 Laboratory test finding 02/02/2021 [facility] [address] [place] [address] [phone] Phosphorus Level 4.2 mg/dL Normal 2.5-4.9 Complete Blood Count 02/02/2021 [facility] Jute Bag Cutting Machine Operator: [place] [address] [phone] WBC 3.4 x10*3/UL Low 4.1 - 10.9 [...] 2.0 - 7.8 Laboratory test finding 02/02/2021 [facility] Jute Bag Cutting Machine Operator: [place] [address] [phone] Creatine Kinase(CK) 88 U/L 26 - 192 Magnesium 2.2 mg/dL 1.8 - 2.4 Comprehensive Chem Profile 02/02/2021 [facility] Jute Bag Cutting Machine Operator: [place] [address] [phone] Glucose 94 mg/dL 74 - 99 1 [...] mL/min >60 2 Laboratory test finding 02/02/2021 [facility] Jute Bag Cutting Machine Operator: Dr Hu James [place] [id number] [phone] Direct Bilirubin 0.2 mg/dL 0.0 - 0.2 Lipid Profile 02/02/2021 [facility] , Jute Bag Cutting Machine Operator: Dr Hu James [place] [address] [phone] Cholesterol 184 mg/dL 131 - 200 Triglycerides 85 mg/dL 30 - 150 HDL Cholesterol 99 mg/dL High 35 - 60 LDL (Calculated) 68 CALC 50 - 159 Laboratory test finding 02/02/2021 [facility] Jute Bag Cutting Machine Operator: Dr Hu [place] [id number] [phone] Thyroid Stimulating Hormone 0.57 uIU/mL 0.3 6 - 3.74 Laboratory test finding 02/02/2021 [facility] Jute Bag Cutting Machine Operator: [place] [address] [phone] Vitamin D 25-Hydroxy 70.1 ng/ml 24.0 - 80.0 3 Basic Metabolic Panel 09/07/2020 [facility] Jute Bag Cutting Machine Operator: Dr Hu [place], [place] [id number] [phone] Glucose 93 mg/dL 74 - 99 4 [...] mL/min >60 5 Laboratory test finding 09/07/2020 [facility] Jute Bag Cutting Machine Operator: [place] [address] [phone] Magnesium 2.2 mg/dL 1.8 - 2.4 Laboratory test finding 09/07/2020 [facility] [address] [place], [place] [address] [phone] Phosphorus Level 3.9 mg/dL Normal 2.5-4.9 1 100-125 mg/dL PRE-DIABET ES/FASTING >126 mg/dL DIABETES/FASTING 2 CHRONIC KIDNEY DISEASE STAGI NG PER NKF STAGE I & II GFR >= 60 NORMAL TO MILDLY DECREASED STAGE III GFR 30-59 MODERATELY DECREASED STAGE IV GFR 15-29 SEVERELY DECREASED STAGE V GFR <15 VERY LITTLE GFR LEFT ESRD GFR <15 ON ENVIRONMENTAL SPECIALIST 3 This test was performed [facility] Vitamin D immunoassay kit. Values obtained with [...] LITTLE GFR LEFT ESRD GFR <15 ON ENVIRONMENTAL SPECIALIST Procedures Date Code Description Status 12/17/2020 56719 Chronic Care Management Services Ea Addl 20 Min Completed 12/17/2020 43394 Chronic Care MGMT 20 Mins Clinical Staff Time Per Calendar Month Completed 11/02/2020 41414 Chronic Care MGMT 20 Mins Clinical Staff Time Per Calendar Month Completed 11/02/2020 63402 Chronic Care Management Services Ea Addl 20 Min Completed 10/21/2020 [id number] Bone Mineral Density Test Comple [facility] 10/21/2020 53101393 Mammogram Completed 09/16/2020 72993 Therapeutic Injection Completed 09/15/2020 42683 Chronic Care MGMT 20 Mins Clinical Staff Time Per Calendar Month Completed 08/13/2020 53952 Chronic Care Management Services Ea Addl 20 Min Completed 08/13/2020 17436 Chronic Care MGMT 20 Mins Clinical Staff Time Per Calendar Month Completed 10/17/2019 [id number] Mammogram Completed 03/26/2018 116153450 Bone Mineral Density Test Comple [facility] 03/26/2018 [id number] Mammogram Completed 03/27/2017 [id number] Mammogram Completed 03/24/2016 655754418 Bone Mineral Density Test Comple [facility] 03/24/2016 94988111 Mammogram Completed 03/12/2015 [id number] Mammogram Completed 03/06/2014 366192011 Bone Mineral Density Test Comple [facility] 03/06/2014 24806143 Mammogram Completed 02/11/2013 [id number] Mammogram Completed 02/10/2012 31690641 Mammogram Completed 07/14/2011 93920100 Colonoscopy Completed 02/16/2011 574243936 Bone Mineral Density Test Comple [facility] 02/04/2011 [id number] Mammogram Completed 02/03/2010 [id number] Mammogram Completed 01/30/2009 585803941 Bone Mineral Density Test Comple [facility] 10/05/2007 [id number] Colonoscopy Completed Medical Devices Description No Information [...] 9:00 am - Alia Garcia M.D. at [facility] * 03/23/2021 1:40 pm - Nurse Schedule at [facility] 02/02/2021 - Alia Garcia M.D.* [...] ca of the face. Following through at [facility]. Health Maintenance. paperwork is reviewed. She is [...]
--- OUTSIDE RECORDS SUMMARY | 2021-03-11 07:11 | CCD ---
Continuity of Care Document (CCD) Created on: 02/02/2021 Hiral Morales External Reference #: [id number] : [id number] Sex: Female Author Author Nurse #Hiral Rondon Organization Unknown Address [address] [place] [address] Phone Unavailable Care Team Providers Care Field Manager Name Role Phone Tavares Gibbs MD AUTM [phone] Robin Bennett MD AUTM [phone] Alia Garcia MD AUTM [phone] Problems Active Problems Provider Date Embolism from [...] SIG Qnty Indications Ordering Provide r Date Melatonin 3mg Capsules 1 every night at bedtime as needed Alia Garcia M.D. 2019 Metamucil 28.3% Powder 1-2 tablespoon every morning as tolerated 1150gm Radha Kendall 01/28/2020 Centrum Silver Tablets 1 by mouth everyday Alia Garcia M.D. 01/28/20 20 Ropinirole HCL 0.5mg Tablets Take 1 Tablet Once AT Dinner 90tabs Alia Garcia M.D. 01/24 Prednisone 50mg Tablets 1 tab [address], 1 tab 7 hours prior and 1 tab [address] 3tabs Tori Finch, ANP 08/20/2018 Benadryl Allergy 25mg Tablets 2 tabs [address] scan 2tabs Tori Finch, DAT 08/20 Temovate 0.05% Cream a pply twice a day 30gm Alia Garcia M.D. 08/15/2018 Simvastatin 40mg Tablets Take 1 Tablet Daily 90tabs Tori Finch, DAT 03/26/2018 Alphagan P 0.1% Solution 1 drop left eye twice a day Tori Finch, ANP 02/12/2018 Prolia 60mg/ml Soln Prefill Syring e inject under the skin every 6 months 1units M81.0 Alia Garcia M.D. 08/01/2016 Tylenol 8 Hour 650mg Tablets ER 2 in am Tori Finch, ANP 08/12/2015 Right Breast Prosthesis as directed dx:c50.919 1units Tori Finch, ANP 05/21/2015 Mastectomy Bra Misc as directed dx c50.919 6units Tori Finch, ANP 06/23/2011 Preservision Areds Capsules 1 by mouth every day 30caps Unknown Calcium 1000 + D [id number] T ablets 1 by mouth every day Unknown Zinc 30mg Capsules 1 by mo [facility] every day Unknown Dorzolamide HCL 2% Solution both eyes 1 drop twice a day Unknown Medications Administered in Office Medication SIG Qnty Indications Ordering Provider Date Prolia (denosumab) 60mg,SC injection, ND C#[id number] Injection Nurse Schedul e 09/16/2020 Therapeutic Injection Injection Nurse Schedule 09/16/2020 Covid-19 vaccine, Unspecified Inj ection Unknown 06/19/2020 Covid-19 vaccine, Unspecified Inj ection Unknown 05/22/2020 Prolia (denosumab) 60mg,SC injection, ND C#[id number] Injection Nurse Schedul e 03/16/2020 Therapeutic Injection Injection Nurse Schedule 03/16/2020 Administration Of Flu Vaccine Inj ection Alia Garcia M.D. 01/28/20 20 Prolia (denosumab) 60mg,SC injection, ND C#[id number] Injection Tori Hlil , ANP 09/10/2019 Therapeutic Injection Injection Nurse Schedule 09/10/2019 Administration Of Flu Vaccine Inj ection Tori HomerClaribel Finch, [facility] 02/20/2019 Prolia (denosumab) 60mg,SC injection, ND C#[id number] Injection Tori Hill , ANP 11/14/2018 Prolia (denosumab) 60mg,SC injection, ND C#[id number] Injection Nurse Sched e 11/14/2018 Chemotherpy Admin Subcutaneous/Im Non-Ho rmonal Anti-Neoplastic Injection Tori denise, [facility] 11/14/2018 Chemotherpy Admin Subcutaneous/Im Non-Ho rmonal Anti-Neoplastic Injection Nurse [facility] 11/14/2018 Prolia (denosumab) 60mg,SC injection, ND C#[id number] Injection Nurse Sched e 03/28/2018 Chemotherpy Admin Subcutaneous/Im Non-Ho rmonal Anti-Neoplastic Injection Nurse [facility] 03/28/2018 Administration Of Flu Vaccine Inj ection Tori Finch, [facility] 02/12/2018 Prolia (denosumab) 60mg,SC injection, ND C#[id number] Injection Tori Hill , [facility] 09/12/2017 Chemotherpy Admin Subcutaneous/Im Non-Ho rmonal Anti-Neoplastic Injection Tori denise, [facility] 09/12/2017 Prolia (denosumab) 60mg,SC injection, ND C#[id number] Injection Nurse Sched e 03/08/2017 Chemotherpy Admin Subcutaneous/Im Non-Ho rmonal Anti-Neoplastic Injection Nurse [facility] 03/08/2017 Administration Of Flu Vaccine Inj ection Hu James MD 02/07/2017 Chemotherpy Admin Subcutaneous/Im Non-Ho rmonal Anti-Neoplastic Injection Nurse [facility] 04/13/2016 Administration Of Flu Vaccine Inj ection Tori Finch, ANP 02/16/2016 Chemotherpy Admin Subcutaneous/Im Non-Ho rmonal Anti-Neoplastic Injection Nurse Rodger fischer 03/27/2015 Administration Of Flu Vaccine Inj ection Hu James MD 02/04/2015 Chemotherpy Admin Subcutaneous/Im Non-Ho rmonal Anti-Neoplastic Injection Nurse Rodger fischer 09/25/2014 Chemotherpy Admin Subcutaneous/Im Non-Ho rmonal Anti-Neoplastic Injection Nurse Rodger fischer 03/27/2014 Administration Of Flu Vaccine Inj ection Tori Finch, ANP 02/11/2014 Administration Of Flu Vaccine Inj ection uH James MD 02/04/2013 Administration Of Flu Vaccine Inj ection Tori Finch, ANP 01/19/2012 Administration Of Flu Vaccine Inj ection Tori Finch, ANP 02/28/2011 Administration Of Flu Vaccine Inj ection Toricarina Finch, ANP 02/15/2010 Administration Of Flu Vaccine Inj ection Toricarina Finch, ANP 02/03/2009 Administration Of Flu Vaccine Inj ection Tori Finch, ANP 01/23/2008 Administration Of Flu Vaccine Inj ection Toricarina Finch, ANP 02/07/2007 Administration Of Flu Vaccine Inj ection Toricarina Finch, ANP 03/03/2005 Administration Of Flu Vaccine Inj ection Toricarina Finch, ANP 01/26/2004 Immunizations CPT Code Status Date Vaccine Lot # [id number] Given 01/28/2020 Influenza Vaccin e Quadrivalent Preser/Antibiotic Free Im Use [id number] 82352 Given 02/20/2019 Influenza Vaccin e Quadrivalent Preser/Antibiotic Free Im Use [id number] 12350 Given 03/16/2018 Shingrix Zoster Vaccine (HZV), Recombinant, Subunit, Adjuvanted 12345 Given 02/12/2018 Influenza Virus Vaccine, Quadrivalent ([id number]), Derived From 9 Given 08/19/2017 Shingrix 08781 Given 08/19/2017 Shingrix Zoster Vaccine (HZV), Recombinant, Subunit, Adjuvanted 49699 Given 02/07/2017 Influenza Vaccin e Quadrivalent Preser/Antibiotic Free Im Use [id number] Given 02/19/2016 Prevnar 13 Q2037 Given 02/16/2016 Fluvirin Virus Vaccine 51037 01 Q2037 Given 02/04/2015 Fluvirin Virus Vaccine 39911 01 Q2037 Given 02/11/2014 Fluvirin Virus Vaccine 10266 21 39036 Given 02/11/2014 Pneumovax 23 [id number] 81701 Given 08/12/2013 Adacel- Tetanus Diphtheria P ertussis [id number] Q2037 Given 02/04/2013 Fluvirin Virus Vaccine Q2037 Given 01/19/2012 Fluvirin Virus Vaccine Q2037 Given 02/28/2011 Fluvirin Virus Vaccine 59566 Given 02/15/2010 Influenza Virus Vaccine 68646 Given 02/03/2009 Influenza Virus Vaccine 67710 Given 01/23/2008 Influenza Virus Vaccine 16093 Given 02/07/2007 Influenza Virus Vaccine 58929 Given 08/16/2006 Zoster Vaccine 13759 Given 03/21/2006 Influenza Virus Vaccine 15577 Given 03/03/2005 Influenza Virus Vaccine 45678 Given 01/26/2004 Influenza Virus Vaccine Vital Signs [...] Date Facility Test Result H/L Range Note Basic Metabolic Panel 09/07/2020 [facility] Freight Claim Investigator: [place] [address] [phone] Glucose 93 mg/dL 74 - 99 1 [...] mL/min >60 2 Laboratory test finding 09/07/2020 [facility] [employer] [facility] branden valentine Freight Claim Investigator: [place] [address] [phone] Magnesium 2.2 mg/dL 1.8 - 2.4 Laboratory test finding 09/07/2020 [facility] [address] [place] [address] [phone] Phosphorus Level 3.9 mg/dL Normal 2.5-4.9 1 100-125 mg/dL PRE-DIABET ES/FASTING >126 mg/dL DIABETES/FASTING 2 CHRONIC KIDNEY DISEASE STAGI NG PER NKF STAGE I & II GFR >= 60 NORMAL TO MILDLY DECREASED STAGE III GFR 30-59 MODERATELY DECREASED STAGE IV GFR 15-29 SEVERELY DECREASED STAGE V GFR <15 VERY LITTLE GFR LEFT ESRD GFR <15 ON [place] Procedures Date Code Description Status 12/17/2020 58684 Chronic Care Management Services Ea Addl 20 Min Completed 12/17/2020 76298 Chronic Care MGMT 20 Mins Clinical Staff Time Per Calendar Month Completed 11/02/2020 28530 Chronic Care MGMT 20 Mins Clinical Staff Time Per Calendar Month Completed 11/02/2020 13626 Chronic Care Management Services Ea Addl 20 Min Completed 10/21/2020 927274299 Bone Mineral Density Test Comple [facility] 10/21/2020 08855833 Mammogram Completed 09/16/2020 21869 Therapeutic Injection Completed 09/15/2020 56755 Chronic Care MGMT 20 Mins Clinical Staff Time Per Calendar Month Completed 08/13/2020 61375 Chronic Care Management Services Ea Addl 20 Min Completed 08/13/2020 20334 Chronic Care MGMT 20 Mins Clinical Staff Time Per Calendar Month Completed 10/17/2019 40672002 Mammogram Completed 03/26/2018 075801814 Bone Mineral Density Test Comple [facility] 03/26/2018 01347362 Mammogram Completed 03/27/2017 84207666 Mammogram Completed 03/24/2016 049658797 Bone Mineral Density Test Comple [facility] 03/24/2016 64529290 Mammogram Completed 03/12/2015 18333193 Mammogram Completed 03/06/2014 260229474 Bone Mineral Density Test Comple [facility] 03/06/2014 73004192 Mammogram Completed 02/11/2013 24831422 Mammogram Completed 02/10/2012 41110367 Mammogram Completed 07/14/2011 55073235 Colonoscopy Completed 02/16/2011 723823298 Bone Mineral Density Test Comple [facility] 02/04/2011 03647707 Mammogram Completed 02/03/2010 36846077 Mammogram Completed 01/30/2009 858683608 Bone Mineral Density Test Comple [facility] 10/05/2007 96507975 Colonoscopy Completed Medical Devices Description No Information [...] hypertension Alia Garcia M.D. 09/07/2020 Z79.899 Other watermelon inspector (current) drug t herapy Alia Garcia M.D. 09/07/2020 Z79.899 Other skilled nursing (current) drug t herapy Lab Schedule 09/07/2020 I10 Essential (primary) hypertension Alia Garcia M.D. 09/07/2020 I10 Essential (primary) hypertension Lab Schedule 08/13/2020 E78.00 Pure hypercholesterolemia, unspe cified Alia Garcia M.D. 08/13/2020 G25.81 Restless legs syndrome Alia Garcia M.D. 08/13/2020 K21.9 Gastro-esophageal reflux disease without esophagitis Alia Garcia M.D. 08/13/2020 I10 Essential (primary) hypertension Alia Garcia M.D. Plan of Treatment No Information Available Functional Status Description No Information Available Mental Status Description No Information Available Referrals Description No Information Available
--- OUTSIDE RECORDS SUMMARY | 2021-03-11 07:12 | CCD ---
Author Author [facility] Organization [facility] Address Unknown Phone Unavailable Care Team Providers Care Optician Apprentice Dispensing Name Role Phone Danielle POTTER MD Unavailable Unavailable ABBEY L BEE GARLAND Unavailable Unavailable POTTER, L BEE GARLAND Unavailable Unavailable POTTER, L BEE GARLAND Unavailable Unavailable POTTER, L BEE GARLAND Unavailable Unavailable POTTER, L BEE GARLAND Unavailable Unavailable POTTER, L BEE GARLAND Unavailable Unavailable POTTER, L BEE GARLAND Unavailable Unavailable POTTER, L BEE GARLAND Unavailable Unavailable POTTER, L BEE GARLAND Unavailable Unavailable POTTER, L BEE GARLAND Unavailable Unavailable POTTER, L BEE GARLAND Unavailable Unavailable POTTER, L BEE GARLAND Unavailable Unavailable POTTER, L BEE GARLAND Unavailable Unavailable POTTER, L BEE GARLAND Unavailable Unavailable POTTER, L BEE GARLAND Unavailable Unavailable POTTER, L BEE GARLAND Unavailable Unavailable POTTER, L BEE GARLAND Unavailable Unavailable POTTER, L BEE GARLAND Unavailable Unavailable POTTER, L BEE GARLAND Unavailable Unavailable POTTER, L BEE GARLAND Unavailable Unavailable POTTER, L BEE GARLAND Unavailable Unavailable POTTER, L BEE GARLAND Unavailable Unavailable POTTER, L BEE GARLAND Unavailable Unavailable POTTER, L BEE GARLAND Unavailable Unavailable POTTER, L BEE GARLAND Unavailable Unavailable POTTER, L BEE GARLAND Unavailable Unavailable POTTER, L BEE GARLAND Unavailable Unavailable OPTTER, L BEE GARLAND Unavailable Unavailable POTTER, L BEE GARLAND Unavailable Unavailable POTTER, L BEE GARLAND Unavailable Unavailable POTTER, L BEE GARLAND Unavailable Unavailable POTTER, L BEE GARLAND Unavailable Unavailable POTTER, L BEE GARLAND Unavailable Unavailable Danielle POTTER MD Unavailable Unavailable Danielle POTTER MD Unavailable Unavailable Danielle POTTER MD Unavailable Unavailable Danielle POTTER MD Unavailable Unavailable Danielle POTTER MD Unavailable Unavailable Danielle POTTER MD Unavailable Unavailable Danielle POTTER MD Unavailable Unavailable Danielle POTTER MD Unavailable Unavailable Danielle POTTER MD Unavailable Unavailable Danielle POTTER MD Unavailable Unavailable Danielle POTTER MD Unavailable Unavailable Leonie Garcia MD Unavailable Unavailable Leonie Garcia MD Unavailable Unavailable Leonie Garcia MD Unavailable Unavailable Leonie Garcia MD Unavailable Unavailable RadhaLeonie martinez MD Unavailable Unavailable RadhaLeonie martinez MD Unavailable Unavailable RadhaLeonie martinez MD Unavailable Unavailable Leonie Garcia MD Unavailable Unavailable Leonie Garcia MD Unavailable Unavailable Leonie Garcia MD Unavailable Unavailable Leonie Garcia MD Unavailable Unavailable Leonie Garcia MD Unavailable Unavailable Leonie Garcia MD Unavailable Unavailable Leonie Garcia MD Unavailable Unavailable Leonie Garcia MD Unavailable Unavailable Leonie Garcia MD Unavailable Unavailable Leonie Garcia MD Unavailable Unavailable Leonie Garcia MD Unavailable Unavailable Leonie Garcia MD Unavailable Unavailable Leonie Garcia MD Unavailable Unavailable Leonie Garcia MD Unavailable Unavailable Leonie Garcia MD Unavailable Unavailable Leonie Garcia MD Unavailable Unavailable Leonie Garcia MD Unavailable Unavailable Leonie Garcia MD Unavailable Unavailable Leonie Garcia MD Unavailable Unavailable Leonie Garcia MD Unavailable Unavailable Leonie Garcia MD Unavailable Unavailable Leonie Garcia MD Unavailable Unavailable Leonie Garcia MD Unavailable Unavailable Leonie Garcia MD Unavailable Unavailable Leonie Garcia MD Unavailable Unavailable RadhaLeonie martinez MD Unavailable Unavailable Leonie Garcia MD Unavailable Unavailable Leonie Garcia MD Unavailable Unavailable Leonie Garcia MD Unavailable Unavailable Leonie Garcia MD Unavailable Unavailable Leonie Garcia MD Unavailable Unavailable RadhaLeonie martinez MD Unavailable Unavailable RadhaLeonie martinez MD Unavailable Unavailable Radha, M Alia MD Unavailable Unavailable Leonie Garcia MD Unavailable Unavailable Leonie Garcia MD Unavailable Unavailable RadhaLeonie martinez MD Unavailable Unavailable RadhaLeonie dos santos MD Unavailable Unavailable Leonie Garcia MD Unavailable Unavailable RadhaLeonie martinez MD Unavailable Unavailable Leonie Garcia MD Unavailable Unavailable Leonie Garcia MD Unavailable Unavailable Leonie Garcia MD Unavailable Unavailable Leonie Garcia MD Unavailable Unavailable Leonie Garcia MD Unavailable Unavailable Leonie Garcia MD Unavailable Unavailable Leonie Garcia MD Unavailable Unavailable Leonie Garcia MD Unavailable Unavailable Leonie Garcia MD Unavailable Unavailable RadhaLeonie dos santos MD Unavailable Unavailable Leonie Garcia MD Unavailable Unavailable Leonie Garcia MD Unavailable Unavailable Leonie Garcia MD Unavailable Unavailable Leonie Garcia MD Unavailable Unavailable Leonie Garcia MD Unavailable Unavailable Leonie Garcia MD Unavailable Unavailable Leonie Garcia MD Unavailable Unavailable Leonie Garcia MD Unavailable Unavailable Leonie Garcia MD Unavailable Unavailable Leonie Garcia MD Unavailable Unavailable Leonie Garcia MD Unavailable Unavailable Leonie Garcia MD Unavailable Unavailable Leonie Garcia MD Unavailable Unavailable Leonie Garcia MD Unavailable Unavailable Leonie Garcia MD Unavailable Unavailable Leonie Garcia MD Unavailable Unavailable Leonie Garcia MD Unavailable Unavailable Leonie Garcia MD Unavailable Unavailable Leonie Garcia MD Unavailable Unavailable Leonie Garcia MD Unavailable Unavailable Leonie Garcia MD Unavailable Unavailable Leonie Garcia MD Unavailable Unavailable Leonie Garcia MD Unavailable Unavailable Leonie Garcia MD Unavailable Unavailable Leonie Garcia MD Unavailable Unavailable Leonie Garcia MD Unavailable Unavailable Leonie Garcia MD Unavailable Unavailable EstillMartha Burris POLITICAL THEORY PROFESSOR Unavailable Unavailable EstillMartha cheng POLITICAL THEORY PROFESSOR Unavailable Unavailable EstillMartha cheng POLITICAL THEORY PROFESSOR Unavailable Unavailable EstillMartha cheng POLITICAL THEORY PROFESSOR Unavailable Unavailable Estill, Aleksandra POLITICAL THEORY PROFESSOR Unavailable Unavailable Estill, Aleksandra POLITICAL THEORY PROFESSOR Unavailable Unavailable Estill, Aleksandra POLITICAL THEORY PROFESSOR Unavailable Unavailable Estill, Aleksandra POLITICAL THEORY PROFESSOR Unavailable Unavailable Estill, Aleksandra POLITICAL THEORY PROFESSOR Unavailable Unavailable Estill, Aleksandra POLITICAL THEORY PROFESSOR Unavailable Unavailable Estill, Aleksandra POLITICAL THEORY PROFESSOR Unavailable Unavailable Estill, Aleksandra POLITICAL THEORY PROFESSOR Unavailable Unavailable Estill, Aleksandra POLITICAL THEORY PROFESSOR Unavailable Unavailable Estill, Aleksandra POLITICAL THEORY PROFESSOR Unavailable Unavailable Estill, Aleksandra POLITICAL THEORY PROFESSOR Unavailable Unavailable Estill, Aleksandra POLITICAL THEORY PROFESSOR Unavailable Unavailable Estill, Aleksandra POLITICAL THEORY PROFESSOR Unavailable Unavailable Estill, Aleksandra POLITICAL THEORY PROFESSOR Unavailable Unavailable Estill, Aleksandra POLITICAL THEORY PROFESSOR Unavailable Unavailable Estill, Aleksandra POLITICAL THEORY PROFESSOR Unavailable Unavailable Estill, Aleksandra POLITICAL THEORY PROFESSOR Unavailable Unavailable Estill, Aleksandra POLITICAL THEORY PROFESSOR Unavailable Unavailable Estill, Aleksandra POLITICAL THEORY PROFESSOR Unavailable Unavailable Estill, Aleksandra POLITICAL THEORY PROFESSOR Unavailable Unavailable Estill, Aleksandra POLITICAL THEORY PROFESSOR Unavailable Unavailable Estill, Aleksandra POLITICAL THEORY PROFESSOR Unavailable Unavailable Estill, Aleksandra POLITICAL THEORY PROFESSOR Unavailable Unavailable Estill, Aleksandra POLITICAL THEORY PROFESSOR Unavailable Unavailable Estill, Aleksandra POLITICAL THEORY PROFESSOR Unavailable Unavailable Estill, Aleksandra POLITICAL THEORY PROFESSOR Unavailable Unavailable Estill, Aleksandra POLITICAL THEORY PROFESSOR Unavailable Unavailable Estill, Aleksandra POLITICAL THEORY PROFESSOR Unavailable Unavailable Estill, Aleksandra POLITICAL THEORY PROFESSOR Unavailable Unavailable Estill, Aleksandra POLITICAL THEORY PROFESSOR Unavailable Unavailable Estill, Aleksandra POLITICAL THEORY PROFESSOR Unavailable Unavailable Estill, Aleksandra POLITICAL THEORY PROFESSOR Unavailable Unavailable Sherry Rojas MD, FACS Unavailable Unavailable Sherry Rojas MD, FACS Unavailable Unavailable Sherry Rojas MD, FACS Unavailable Unavailable Sherry Rojas MD, FACS Unavailable Unavailable Sherry Rojas MD, FACS Unavailable Unavailable Sherry Rojas MD, FACS Unavailable Unavailable Sherry Rojas MD, FACS Unavailable Unavailable Sherry Rojas MD, FACS Unavailable Unavailable Sherry Rojas MD, FACS Unavailable Unavailable Guerrero Yañez, Sherry Kelly MD, FACS Unavailable Unavailable Guerrero Yañez, Sherry Kelly MD, FACS Unavailable Unavailable Guerrero Yañez, Sherry Kelly MD, FACS Unavailable Unavailable Guerrero Yañez, Sherry Kelly MD, FACS Unavailable Unavailable Guerrero Yañez, Sherry Kelly MD, FACS Unavailable Unavailable Guerrero Yañez, Sherry Kelly MD, FACS Unavailable Unavailable Guerrero Yañez, Sherry Kelly MD, FACS Unavailable Unavailable Guerrero Yañez, Sherry Kelly MD, FACS Unavailable Unavailable Guerrero Yañez, Sherry Kelly MD, FACS Unavailable Unavailable Guerrero Yañez, Sherry Kelly MD, FACS Unavailable Unavailable Guerrero Yañez, Sherry Kelly MD, FACS Unavailable Unavailable Guerrero Yañez, Sherry Kelly MD, FACS Unavailable Unavailable Guerrero Yañez, Sherry Kelly MD, FACS Unavailable Unavailable Guerrero Yañez, Sherry Klely MD, FACS Unavailable Unavailable Guerrero Yañez, Sherry Kelly MD, FACS Unavailable Unavailable Guerrero Yañez, Sherry Kelly MD, FACS Unavailable Unavailable Guerrero Yañez, Sherry Kelly MD, FACS Unavailable Unavailable Guerrero Yañez, Sherry Kelly MD, FACS Unavailable Unavailable Guerrero Yañez, Sherry Kelly MD, FACS Unavailable Unavailable Guerrero Yañez, Sherry Kelly MD, FACS Unavailable Unavailable Guerrero Yañez, Sherry Kelly MD, FACS Unavailable Unavailable Guerrero Yañez, Sherry Kelly MD, FACS Unavailable Unavailable Guerrero Yañez, Sherry Kelly MD, FACS Unavailable Unavailable Guerrero Yañez, Sherry Kelly MD, FACS Unavailable Unavailable Guerrero Yañez, Sherry Klely MD, FACS Unavailable Unavailable Guerrero Yañez, Sherry Kelly MD, FACS Unavailable Unavailable Guerrero Yañez, Sherry Kelly MD, FACS Unavailable Unavailable Guerrero Yañez, Sherry Kelly MD, FACS Unavailable Unavailable Guerrero Yañez, Sherry Kelly MD, FACS Unavailable Unavailable Guerrero Yañez, Sherry Kelly MD, FACS Unavailable Unavailable Re-disclosure Warning The records that you are about to access may contain information from federally-assisted alcohol or drug abuse programs. If such information is present, then the following federally mandated warning applies: This information has been disclosed to you from records protected by federal confidentiality rules (42 CFR part 2). The federal rules prohibit you from making any further disclosure of this information unless further disclosure is expressly permitted by the written consent of the person to whom it pertains or as otherwise permitted by 42 CFR part 2. A general authorization for the release of medical or other information is NOT sufficient for this purpose. The Federal rules restrict any use of the information to criminally investigate or prosecute any alcohol or drug abuse patient.The records that you are about to access may contain highly sensitive health information, the redisclosure of which is protected by Article 27-F of the [place] Public Health law. If you continue you may have access to information: Regarding HIV / AIDS; Provided by facilities licensed or operated by the [facility] of Mental Health; or Provided by the [facility] for People With Developmental Disabilities. If such information is present, then the following [facility] mandated warning applies: This information has been disclosed to you from confidential records which are protected by state law. State law prohibits you from making any further disclosure of this information without the specific written consent of the person to whom it pertains, or as otherwise permitted by law. Any unauthorized further disclosure in violation of state law may result in a fine or snf sentence or both. A general authorization for the release of medical or other information is NOT sufficient authorization for further disc losure. Allergies and Adverse Reactions Type Description Substance Reaction Status Data Source(s ) Drug intolerance Trusopt Dorzolamide HCl eyes burn Active [facility] (Robin Yañez MD [facility]) Drug intolerance Trusopt Dorzolamide HCl eyes burn Active GRE ENWAY (Robin Yañez MD [facility]) Drug intolerance Trusopt Dorzolamide HCl eyes burn Active [facility] ENWAY (Robin Yañez MD [facility]) Encounters Encounter Providers Location Date Indications Data Source(s ) Office Visit Attender: BEE [facility] construction scheduler 08:00:00 AM EST [facility] ([facility]) Outpatient Attender: BEE [facility] Woman construction scheduler 09:15:00 AM EDT [facility] ([facility]) Outpatient Attender: Alia Heath 11:00:00 AM EDT [facility] ([facility] ) Outpatient Attender: Carrie Gonsales [facility] Main Office 01/19/2021 01:00:00 PM EDT [facility] <td ID="encounterTypeDescriptionID0">VIS [facility] FIELD 24-2</td><td></td><td>Robin Bennett MD [facility]</td><td>01/07/2021</td><td>12:08PM</td><td>12:28PM</td><td></td>Outpatient Robin Bennett MD [facility] 01/07/2021 12:08:00 PM EDT - 01/07/2021 12:28:00 PM EDT DANY (Robin Yañez MD [facility]) Outpatient<td ID="encounterTypeDescripti onID1">IOP CHECK</td><td>Robin Yañez MD, FACS</td><td>Robin Bennett MD [facility]</td><td>10/06/2020</td><td>12:14PM</td><td>12:59PM</td><td><content ID="encounterDiagnosisID1-0">Glaucoma Open-angle Primary Right Eye</content>, <content ID="encounterDiagnosisID1-1">Glaucoma Open-angle Primary Left Eye</content></td> Attender: Robin Yañez MD, FACS Robin Bennett MD [facility] 10/06/2020 12:14:00 PM EDT - 10/06/2020 12:59:00 PM EDT Glaucoma Open-angle Primary Left EyeGlaucoma Open-angle Primary Right EyeGlaucoma Open-angle Primary Left EyeGlaucoma Open-angle Primary Right EyeGlaucoma Open-angle Primary Left EyeGlaucoma Open-angle Primary Right Eye DANY (Robin Yañez MD [facility]) Glaucoma Open-angle Primary Left Eye Glaucoma Open-angle Primary Right Eye Glaucoma Open-angle Primary Left Eye Glaucoma Open-angle Primary Right Eye Glaucoma Open-angle Primary Left Eye Glaucoma Open-angle Primary Right Eye Outpatient Attender: Alia Heath 10:30:00 AM EDT [facility] ([facility] ) <td ID="encounterTypeDescriptionID2">IOP CHECK</td><td>Robin Bennett MD, FACS</td><td>Robin Bennett MD [facility]</td><td>06/11/2020</td><td>12:53PM</td><td>1:28PM</td><td><content ID="encounterDiagnosisID2-0">Glaucoma Open-angle Primary Left Eye</content>, <content ID="encounterDiagnosisID2-1">Glaucoma Open-angle Primary Right Eye</content></td>Outpatient Attender: Robin Yañez MD, FACS Robin Yañez MD [facility] 06/11/2020 12:53:00 PM EST - 06/11/2020 01:28:00 PM ES T Glaucoma Open-angle Primary Right EyeGlaucoma Open-angle Primary Left EyeGlaucoma Open- angle Primary Right EyeGlaucoma Open-angle Primary Left EyeGlaucoma Open-angle Primary Right EyeGlaucoma Open-angle Primary Left Eye DANY (Robin Yañez MD [facility]) Glaucoma Open-angle Primary Right Eye Glaucoma Open-angle Primary Left Eye Glaucoma Open-angle Primary Right Eye Glaucoma Open-angle Primary Left Eye Glaucoma Open-angle Primary Right Eye Glaucoma Open-angle Primary Left Eye Outpatient<td ID="encounterTypeDescripti onID3">1 Year Follow-Up</td><td>Robin Bennett MD, CHAVEZ</td><td>Robin Bennett MD [facility]</td><td>03/31/2020</td><td>12:18PM</td><td>12:53PM</td><td><content ID="encounterDiagnosisID3-0">Macular Puckering</content>, <content ID="encounterDiagnosisID3-1">Glaucoma Open-angle Primary Right Eye</content>, <content ID="encounterDiagnosisID3-2">Glaucoma Open-angle Primary Left Eye</content>, <content ID="encounterDiagnosisID3-3">Macular Degeneration Nonexudative Bilateral Early Dry Stage</content></td> Attender: Robin Yañez MD, CHAVEZ Bennett MD [facility] 03/31/2020 12:18:00 PM EST - 03/31/2020 12:53:00 PM EST Macular PuckeringMacular PuckeringMacula r PuckeringMacular PuckeringMacular Degeneration Nonexudative Bilateral Early Dry StageGlaucoma Open-angle Primary Left EyeGlaucoma Open-angle Primary Right EyeMacular Degeneration Nonexudative Bilateral Early Dry StageGlaucoma Open-angle Primary Left EyeGlaucoma Open-angle Primary Right EyeMacular Degeneration Nonexudative Bilateral Early Dry StageGlaucoma Open-angle Primary Left EyeGlaucoma Open-angle Primary Right EyeMacular Degeneration Nonexudative Bilateral Early Dry StageGlaucoma Open-angle Primary Left EyeGlaucoma Open-angle Primary Right Eye DANY (Robin Yañez MD [facility]) Macular Puckering Macular Puckering Macular Puckering Macular Puckering Macular Degeneration Nonexudative Bilate ral Early Dry Stage Glaucoma Open-angle Primary Left Eye Glaucoma Open-angle Primary Right Eye Macular Degeneration Nonexudative Bilate ral Early Dry Stage Glaucoma Open-angle Primary Left Eye Glaucoma Open-angle Primary Right Eye Macular Degeneration Nonexudative Bilate ral Early Dry Stage Glaucoma Open-angle Primary Left Eye Glaucoma Open-angle Primary Right Eye Macular Degeneration Nonexudative Bilate ral Early Dry Stage Glaucoma Open-angle Primary Left Eye Glaucoma Open-angle Primary Right Eye Outpatient<td ID="encounterTypeDescripti onID4">TRIAGE NON URGENT</td><td>Robin Bennett MD, FACS</td><td>Robin Bennett MD [facility]</td><td>02/04/2020</td><td>1:11PM</td><td>2:33PM</td><td><content ID="encounterDiagnosisID4-0">Conjunctivitis Acute Atopic</content>, <content ID="encounterDiagnosisID4-1">Conjunctivitis Chronic Allergic</content></td> Attender: Robin Yañez MD, FACS Robin Bennett MD [facility] 02/04/2020 01:11:0 0 PM EDT - 02/04/2020 02:33:00 PM EDT Conjunctivitis Acute AtopicConjunctiviti s Acute AtopicConjunctivitis Acute AtopicConjunctivitis Acute AtopicConjunctivitis Chronic AllergicConjunctivitis Chronic AllergicConjunctivitis Chronic Allerg icConjunctivitis Chronic Allergic DANY (Robin Yañez MD [facility]) Conjunctivitis Acute Atopic Conjunctivitis Acute Atopic Conjunctivitis Acute Atopic Conjunctivitis Acute Atopic Conjunctivitis Chronic Allergic Conjunctivitis Chronic Allergic Conjunctivitis Chronic Allergic Conjunctivitis Chronic Allergic Outpatient Attender: Alia Heath 11:00:00 AM EDT [facility] ([facility] ) Immunizations Vaccine Date Status Description Data Source(s) Influenza, injectable, MDCK, preservative free, jolene valent 02/02/2021 12:49:00 PM EDT completed [facility]) Influenza, injectable, MDCK, preservative free, jolene valent 02/02/2021 11:57:00 AM EDT completed [facility] ([facility]) COVID-19 VACCINE Moderna 06/19/2020 12:00:00 AM EST completed [facility] Vaccine Series Complete: YESThis Data wa s Submitted to [facility] Via [employer]. COVID-19 VACCINE Moderna 05/22/2020 12:00:00 AM EST completed [facility] Vaccine Series Complete: NOThis Data was Submitted to [facility] Via [employer]. Influenza, injectable, MDCK, preservative free, jolene valent 01/28/2020 08:51:00 AM EDT completed [facility] ([facility]) Medications Medication Brand Name Start Date Product Form Dose Route Admi nistrative Instructions Pharmacy Instructions Status Indications Reaction Description Data Source(s) 8 HR Acetaminophen 650 MG Extended Release Oral Tablet [Tylenol] Tylenol 8 Hour Arthritis Pain 02/02/2021 12:00:00 AM EDT active [facility] ([facility]) Cholecalciferol 1000 UNT Oral Capsule Vitamin D3 02/02/2021 12:00:00 AM EDT ORAL completed [facility] ([facility]) ropinirole 0.5 MG Oral Tablet Ropinirole HCL 02/02/2021 12:00:00 AM E DT ORAL active [facility] ([facility]) Administration Of Flu Vaccine 02/02/2021 12:00:00 AM EDT completed [facility] [facility]) Medication administered onsite Melatonin 3 MG Extended Release Oral Tablet Melatonin ER 02/02/2021 12:00:00 AM EDT ORAL active [facility] ([facility]) Calcium Carbonate 1500 MG / Cholecalciferol 400 UNT Oral Tab let Calcium 600+D 02/02/2021 12:00:00 AM EDT ORAL active [facility] ([facility]) Prolia (denosumab) 60mg,SC injection, [facility]#[id number] 09/16/2020 12:00:00 AM EDT completed [facility] ([facility]) Medication administered onsite Therapeutic Injection 09/16/2020 12:00:00 AM EDT completed [facility] ([facility]) Medication administered onsite Covid-19 vaccine, Unspecified 06/19/2020 12:00:00 AM EST completed [facility]) Medication administered onsite Covid-19 vaccine, Unspecified 05/22/2020 12:00:00 AM EST completed [facility]) Medication administered onsite dorzolamide 20 MG/ML Ophthalmic Solution Dorzolamide H Cl 2% Ophthalmic Solution Dorzolamide HCl 2% Ophthalmic Solution 03/31/2020 12:00:00 AM EST active dorzolamide 20 MG/ML Ophthalmic Solution DANY (Robin Yañez MD [facility]) Prolia (denosumab) 60mg,SC injection, [facility]#[id number] 03/16/2020 12:00:00 AM EST completed [facility] ([facility]) Medication administered onsite Therapeutic Injection 03/16/2020 12:00:00 AM EST completed [facility] ([facility]) Medication administered onsite loteprednol etabonate 5 MG/ML Ophthalmic Suspension [Lotemax] Lotemax 0.5% Ophthalmic Suspension Lotemax 0.5% Ophthalmic Suspension 02/04/2020 12:00:00 AM EDT aborted lotepred nol etabonate 5 MG/ML Ophthalmic Suspension [Lotemax] DANY (Robin Yañez MD [facility]) Administration Of Flu Vaccine 01/28/2020 12:00:00 AM EDT completed [facility]) Medication administered onsite Melatonin 3 MG Oral Capsule Melatonin 01/28/2020 12:00:00 AM EDT active [facility] ([facility]) Psyllium 14.2 MG/ML Oral Suspension Metamucil 01/28/2020 12:00:00 AM E DT active [facility] ([facility]) Centrum Silver 01/28/2020 12:00:00 AM EDT ORAL act halina [facility] ([facility]) Brimonidine tartrate 1 MG/ML Ophthalmic Solution [Alphagan] Alphagan P 0.1% Ophthalmic Solution Alphagan P 0.1% Ophthalmic Solution 12/13/2019 12:00:0 0 AM EDT aborted brimonid ine tartrate 1 MG/ML Ophthalmic Solution [Alphagan] DANY (Robin Yañez MD [facility]) Insurance Providers Payer name Policy type / Coverage type Policy ID Covered democrat ID Covered democrat's relationship to armijo Policy Armijo Plan Information [facility] Medigap Part B [id number] Family Dependent 304/804 [facility] Medigap Part B [id number] Family Dependent [id number] Medicare Natl Govt Servic Medicare Primary [id number] Self [id number] Medicare Natl Govt Servic Medicare Primary [id number] Self [facility] [id number] Self [id number] Medicare Natl Govt Servic Medicare Primary [id number] Self [id number] Medicare Natl Govt Servic Medicare Primary [id number] Self [id number] Medicare Natl Govt Servic Medicare Primary [id number] Self [id number] [facility] [place] [id number] Self [id number] BCBS of [facility] Other 0 [id number] Self 0 Medicare Part B of [facility] Other 0 [id number] Self 0 BCBS of [facility] Other 0 [id number] Self 0 Medicare Part B of [facility] Other 0 [id number] Self 0 MEDICARE C [id number] S [id number] [id number] BC BS [place] B [id number] S [id number] MEDICARE C [id number] S [id number] B EXCELLUS BCBS FEDERAL [id number] SP [id number] MEDICARE [id number] SP [id number] B MEDICARE UNAVAILABLE [place] BLE BCBS FEDERAL EMPLOYEE PROGRAM [id number] SP [id number] [place] BS [place] [id number] SP [id number] MEDICARE [id number] SP [id number] BCBS FEDERAL EMPLOYEE PROGRAM [id number] SP [id number] BCBS of [facility] Other 0 [id number] Self 0 Medicare Part B of [facility] 0 [id number] Self 0 BCBS of [facility] Other 0 [id number] Self 0 Medicare Part B of [facility] Other 0 [id number] Self 0 BCBS of [facility] Other 0 [id number] Self 0 Medicare Part B of [facility] Other 0 [id number] Self 0 Problems, Conditions, and Diagnoses Code Display Name Description Problem Type Effective Dates Data Source(s) 372.05 Conjunctivitis Acute Atopic Conjunctivitis Acute Atopi c Problem 08/23/2018 12:00:00 AM EDT - 03/31/2020 12:00:00 AM EST DANY (Robin Yañez MD [facility]) 372.05 Conjunctivitis Acute Atopic Conjunctivitis Acute Atopi c Problem 08/23/2018 12:00:00 AM EDT - 03/31/2020 12:00:00 AM EST DANY (Robin Yañez MD [facility]) 372.05 Conjunctivitis Acute Atopic Conjunctivitis Acute Atopi c Problem 08/23/2018 12:00:00 AM EDT - 03/31/2020 12:00:00 AM EST DANY (Robin Yañez MD [facility]) 372.05 Conjunctivitis Acute Atopic Conjunctivitis Acute Atopi c Problem 08/23/2018 12:00:00 AM EDT - 03/31/2020 12:00:00 AM EST DANY (Robin Yañez MD [facility]) Surgeries/Procedures Procedure Description Date Indications Data Source(s) Implant Neuroelectrodes,Sacral Nerve 03/04/2021 12:00: 00 AM EST [facility] ([facility]) Insertion/Replacement Peripheral Neurostimulator Pulse Gener ator 03/04/2021 12:00:00 AM EST [facility] ([facility] T[facility]) Fluoroscopic guidance for needle placement (eg. Biopsy, aspi ratio 03/04/2021 12:00:00 AM EST [facility] ([facility] T[facility]) Neurostimulator Pulse Generator Brain/Spinal Cord First Hour 03/04/2021 12:00:00 AM EST [facility] ([facility] T[facility]) OFFICE OUTPATIENT NEW 60 MINUTES 02/17/2021 12:00:00 A M EDT MEDDIE[facility] ([facility] [employer] T[facility]) OFFICE OUTPATIENT VISIT 25 MINUTES 02/02/2021 12:00:00 AM EDPatricia MAGDALENO ([facility]) Chronic Care Management Services Ea Addl 20 Min 2020 12:00:00 AM EDPatriica MAGDALENO ([facility]) Chronic Care MGMT 20 Mins Clinical Staff Time Per Calendar M [facility] 01/19/2021 12:00:00 AM EDPatricia MAGDALENO ([facility] ) Shave Biopsy Of Skin, Single Lesion 01/19/2021 12:00:0 0 AM EDPatricia MAGDALENO ([facility]) OFFICE OUTPATIENT VISIT 25 MINUTES 01/19/2021 12:00:00 AM EDPatricia MAGDALENO ([facility]) Chronic Care Management Services Ea Addl 20 Min 2020 12:00:00 AM EDPatricia MAGDALENO ([facility]) Chronic Care MGMT 20 Mins Clinical Staff Time Per Calendar M [facility] 12/17/2020 12:00:00 AM EDPatricia MAGDALENO ([facility] ) Chronic Care Management Services Ea Addl 20 Min 2020 12:00:00 AM EDPatricia MAGDALENO ([facility]) Chronic Care MGMT 20 Mins Clinical Staff Time Per Calendar M [facility] 11/02/2020 12:00:00 AM EDPatricia MAGDALENO ([facility] ) Mammogram 10/21/2020 12:00:00 AM EDT RAH ([facility]) Bone Mineral Density Test 10/21/2020 12:00:00 AM EDT MEDDIE[facility] ([facility]) Intermediate Eye Exam Established Patient (Signi/Sep E kaiser. & Man.) Intermediate Eye Exam Established Patient (Signi/Sep Eval. & Man.) 10/06/2020 12:00:00 AM EDT DANY (Robin Yañez MD [facility]) Scodi, optic nerve with interpretation a nd report (WAIVER OF LIABILITY ON FILE (ABN)) Scodi, optic nerve with interpretation a nd report (WAIVER OF LIABILITY ON FILE (ABN)) 10/06/2020 12:00:00 AM EDT DANY (Jere Yañez MD [facility]) COMPUTERIZED OPHTHALMIC IMAGING OPTIC NERVE Scodi, opt ic nerve with interpretation and report (GA) 10/06/2020 12:00:00 AM EDT GR EENSANDY (Robin Yañez MD [facility]) Intermediate Eye Exam Established Patient (25) Interme diate Eye Exam Established Patient (25) 10/06/2020 12:00:00 AM EDT DANY (Jere Yañez MD [facility]) THERAPEUTIC PROPHYLACTIC/DX INJECTION SUBQ/IM 09/17/19 21 12:00:00 AM EDT [facility] ([facility]) Chronic Care MGMT 20 Mins Clinical Staff Time Per Calendar M ont 09/15/2020 12:00:00 AM EDT [facility] ([facility] ) Chronic Care MGMT 20 Mins Clinical Staff Time Per Calendar M ont 08/13/2020 12:00:00 AM EDT MEDDIE[place] ([facility] ) Chronic Care Management Services Ea Addl 20 Min 2020 12:00:00 AM EDT MEDDIEGO ([facility]) Intermediate Eye Exam Established Patient Intermediate Eye Exam Established Patient 06/11/2020 12:00:00 AM EST DANY (Jere Yañez MD [facility]) Comprehensive eye exam established patient Comprehensi ve eye exam established patient 03/31/2020 12:00:00 AM EST DANY (Jere Yañez MD [facility]) Comprehensive eye exam established patient Comprehensi ve eye exam established patient 03/31/2020 12:00:00 AM EST DANY (Jere Yañez MD [facility]) THERAPEUTIC PROPHYLACTIC/DX INJECTION SUBQ/IM 03/16/20 12:00:00 AM EST MED[facility] ([facility]) Intermediate Eye Exam Established Patient Intermediate Eye Exam Established Patient 02/04/2020 12:00:00 AM TERI SAENZ (Jere william Yañez MD [facility]) Results ID Date Data Source [id number] 03/06/2021 09:25:00 AM EST [facility] ([facility]) Name Value Range Interpretation Code Description Data Torri rce(s) Supporting Document(s) Coronavirus 2019 Nasopharygeal Laboratory test result [facility] ASSAY INFORMATION: Real Time RT-PCR NOTE: The COVID-19 assay has been cleared by the U.S. Food and Drug Administration under the Emergency Use Authorization (EUA). [employer] and [employer] are designated as high complexity laboratories by the Clinical Laboratory Improvement Amendments of 1988(CLIA) and are qualified to perform this test. Not Detected ID Date Data Source [id number] 03/01/2021 03:17:00 PM EST [facility] ([facility]) Name Value Range Interpretation Code Description Data Torri rce(s) Supporting Document(s) Leukocytes [#/volume] in Blood by Automated count 4.7 x10*3/UL 4.1-10 .9 [facility] ([facility]) Erythrocytes [#/volume] in Blood by Automated count 4.06 x10*6/UL 4.2 0-6.30 [facility] ([facility]) Hemoglobin [Mass/volume] in Blood 12.9 g/dL 12.0-18.0 [facility] ([facility]) MCH 31.9 pg 26.0-32.0 [facility] Hematocrit [Volume Fraction] of Blood by Automated count 37.1 % 3 7.0-51.0 [facility] ([facility]) MCV 91.4 fL 80.0-97.0 [facility] MCHC 34.9 g/dL 31.0-38.0 [facility] Erythrocyte distribution width [Ratio] by Automated count 12.7 % 11.6-13.7 [facility] ([facility]) Platelets [#/volume] in Blood by Automated count 192 x10*3/UL 140-440 [facility] ([facility]) MPV 8.9 FL 7.8-11.0 [facility] [facility]) Mid % 5.9 % 1.7-9.3 [facility] [facility]) Lymph % 25.0 % 10.0-58.5 [facility] [facility]) Neut % 69.1 % 37.0-92.0 [facility] ([facility]) Lymph # 1.2 x10*3/UL 0.6-4.1 [facility] ([facility]) Mid # 0.2 x10*3/UL 0.1-0.6 [facility] ([facility]) Neut # 3.3 x10*3/UL 2.0-7.8 [facility] ([facility]) ID Date Data Source [id number] 03/01/2021 03:17:00 PM EST [facility] Name Value Range Interpretation Code Description Data Torri rce(s) Supporting Document(s) Hemoglobin A1c/Hemoglobin.total in Blood 5.6 % [facility] ([facility] Lab Result Notes: Pre-Diabetes 5.7 - 6.4 % Diabetes = or > 6.5% Glucose mean value [Mass/volume] in Blood Estimated fr om glycated hemoglobin 114 mg/dL 60-110 [facility] ([facility] ID Date Data Source [id number] 02/27/2021 11:35:00 AM EDT [facility] ([facility] Name Value Range Interpretation Code Description Data Torri rce(s) Supporting Document(s) Coronavirus 2019 Nasopharygeal Laboratory test result [facility] ([facility]) ASSAY INFORMATION: Real Time RT-PCR NOTE: The COVID-19 assay has been cleared by the U.S. Food and Drug Administration under the Emergency Use Authorization (EUA). [employer] and [employer] are designated as high complexity laboratories by the Clinical Laboratory Improvement Amendments of 1988(CLIA) and are qualified to perform this test. Not Detected ID Date Data Source [id number] 02/27/2021 11:35:00 AM EDT [facility] Name Value Range Interpretation Code Description [facility] Supporting Document(s) SARS-CoV-2 (COVID-19) RNA [Presence] in Respiratory specimen by CONG with probe detection Not Detected [facility] This lab was ordered by [facility] and reported by [employer]. ID Date Data Source [id number] 02/17/2021 12:00:00 PM EDT [facility] ([facility] [employer] [facility]) Name Value Range Interpretation Code Description Data Torri rce(s) Supporting Document(s) TP Reflex HPV ASCUS Laboratory test result [facility] ([facility] [employer] [facility]) SPECIMEN PART------ A. Cervical, Endocervical, ThinPrep Pap ([employer] Tender) CYTOLOGY HX-------- Other Information: Post-menopausal FINAL DIAGNOSIS---- INTERPRETATION: Negative for Intraepithelial Lesion or Malignancy. SPECIMEN ADEQUACY:Satisfactory for evaluation. Endocervical/transformation zone component present. ADDITIONAL FINDINGS:Atrophic pattern. TP Reflex HPV ASCUS Laboratory test result [facility] ([facility] [employer] [facility]) ID Date Data Source [id number] 02/03/2021 09:00:00 AM EDT [facility] ([facility] Name Value Range Interpretation Code Description Data [facility]) Supporting Document(s) Urine Color Laboratory test result MEDEN T ([facility]) Urine Appearance Laboratory test result Abnormal (applies to non-numeric results) [facility] ([facility]) Urine PH 6.0 units 5.0-9.0 [facility]) Specific gravity of Urine 1.015 1.005-1.030 IN DENT ([facility]) Urine Leukocytes Laboratory test result Abnormal (applies to non-numeric results) [facility] ([facility]) Urine Blood Laboratory test result [facility] ([facility] Urine Protein Laboratory test result 0-0 [facility] ([facility] Glucose [Presence] in Urine Laboratory test result [facility] ([facility]) Urine Nitrite Laboratory test result [facility] ([facility] Urine Ketone Laboratory test result MEDE NT ([facility] Bilirubin.total [Mass/volume] in Serum or Plasma Laboratory test resu lt [facility] ([facility] Urine Urobilinogen 0.2 mg/dL 0.2-1.0 [facility] ([facility] ID Date Data Source [id number] 02/02/2021 12:01:00 PM EDT [facility] ([facility] Name Value Range Interpretation Code Description Data Torri rce(s) Supporting Document(s) Phosphate [Moles/volume] in Serum or Plasma 4.2 mg/dL 2.5-4.9 [facility] ([facility] ID Date Data Source [id number] 02/02/2021 12:00:00 PM EDT [facility] ([facility] Name Value Range Interpretation Code Description Data Torri rce(s) Supporting Document(s) Calcidiol [Mass/volume] in Serum or Plasma 70.1 ng/mL 24.0-80.0 [facility] ([facility]) This test was performed using [employer] I P Vitamin D immunoassay kit. Values obtained with different assay methods should not be used interchangeably. ID Date Data Source [id number] 02/02/2021 12:00:00 PM EDT [facility] ([facility] Name Value Range Interpretation Code Description Data Torri rce(s) Supporting Document(s) Thyrotropin [Units/volume] in Serum or Plasma by Detec tion limit <= 0.05 mIU/L 0.57 uIU/mL 0.36-3.74 [facility] ([facility] ID Date Data Source [id number] 02/02/2021 12:00:00 PM EDT [facility] ([facility] Name Value Range Interpretation Code Description Data Torri rce(s) Supporting Document(s) Cholesterol [Mass/volume] in Serum or Plasma 184 mg/dL 131-200 [facility] ([facility]) Cholesterol in HDL [Mass/volume] in Serum or Plasma 99 mg/dL 35-60 [facility] ([facility]) Triglyceride [Mass/volume] in Serum or Plasma 85 mg/dL 30-150 [facility] ([facility]) Cholesterol in LDL [Mass/volume] in Serum or Plasma by calcu lation 68 CALC 50-159 [facility] ([facility]) ID Date Data Source [id number] 02/02/2021 12:00:00 PM EDT [facility] ([facility]) Name Value Range Interpretation Code Description Data Torri rce(s) Supporting Document(s) Bilirubin.conjugated [Mass/volume] in Serum or Plasma 0.2 mg/dL 0.0- 0.2 [facility] ([facility]) ID Date Data Source [id number] 02/02/2021 12:00:00 PM EDT [facility] ([facility]) Name Value Range Interpretation Code Description Data Torri rce(s) Supporting Document(s) Glucose [Mass/volume] in Serum or Plasma 94 mg/dL 74-99 [facility] ([facility]) 100-125 mg/dL PRE-DIABETES/FASTING >126 mg/dL DIABETES/FASTING Urea nitrogen [Mass/volume] in Serum or Plasma 14 mg/dL 7-18 [facility] ([facility]) Sodium [Moles/volume] in Serum or Plasma 139 meq/L 136-145 [facility] ([facility]) Creatinine 0.7 mg/dL 0.6-1.3 [facility] ([facility]) Potassium [Moles/volume] in Serum or Plasma 3.6 meq/L 3.5-5.1 [facility] ([facility]) Chloride [Moles/volume] in Serum or Plasma 102 meq/L 98-107 [facility] ([facility]) Carbon dioxide, total [Moles/volume] in Serum or Plasma 33 meq/L 21 -32 [facility] ([facility]) Calcium [Mass/volume] in Serum or Plasma 9.2 mg/dL 8.5-10.1 [facility] ([facility]) Total Bilirubin 0.5 mg/dL 0.2-1.0 [facility] ([facility]) Alkaline phosphatase isoenzyme [Units/volume] in Serum or Pl asma 72 mg/dL 46-116 [facility] ([facility]) Alanine aminotransferase [Enzymatic activity/volume] in Seru m or Plasma 28 U/L 12-78 [facility] ([facility]) Aspartate aminotransferase [Enzymatic activity/volume] in Serum or Plasma 23 U/L 15-37 [facility] ([facility] ) Albumin [Mass/volume] in Serum or Plasma 4.1 g/dL 3.4-5.0 [facility] ([facility]) A/G Ratio 1.17 CALC 1.00-1.90 [facility] ([place] [facility]) Proteinase 3 Ab [Units/volume] in Serum 7.6 g/dL 6.4-8.2 [facility] ([facility]) Glomerular filtration rate/1.73 sq M pre dicted among non-blacks [Volume Rate/Area] in Serum or Plasma by Creatinine-based formula (MDRD) Laboratory test result [facility] ([facility] Glomerular filtration rate/1.73 sq M pre dicted among blacks [Volume Rate/Area] in Serum or Plasma by Creatinine-based formula (MDRD) Laboratory test result [facility] ([facility]) <content>CHRONIC KIDNEY DISEASE STAGING PER NKF</content>
<content></content>
<content>STAGE I & II GFR >= 60 NORMAL TO MILDLY DECREASED</content>
<content>STAGE III GFR 30-59 MODERATELY DECREASED</content>
<content>STAGE IV GFR 15-29 SEVERELY DECREASED</content>
<content>STAGE V GFR <15 VERY LITTLE GFR LEFT</content>
<content>ESRD GFR <15 ON VIDEO CONFERENCE SPECIALIST</content>
<content></content> ID Date Data Source [id number] 02/02/2021 12:00:00 PM EDT [facility] ([facility]) Name Value Range Interpretation Code Description Data Torri rce(s) Supporting Document(s) Creatine kinase [Enzymatic activity/volume] in Serum or Plasma 88 U /L 26-192 [facility] ([facility]) Magnesium 2.2 mg/dL 1.8-2.4 [facility] ([place] [facility]) ID Date Data Source [id number] 02/02/2021 12:00:00 PM EDT [facility] ([facility]) Name Value Range Interpretation Code Description Data Torri rce(s) Supporting Document(s) Leukocytes [#/volume] in Blood by Automated count 3.4 x10*3/UL 4.1-10 .9 [facility] ([facility]) Erythrocytes [#/volume] in Blood by Automated count 4.23 x10*6/UL 4.2 0-6.30 [facility] ([facility]) Hemoglobin [Mass/volume] in Blood 13.1 g/dL 12.0-18.0 [facility] ([facility]) Hematocrit [Volume Fraction] of Blood by Automated count 38.9 % 3 7.0-51.0 [facility] ([facility]) MCV 92.1 fL 80.0-97.0 [facility] [facility]) MCHC 33.6 g/dL 31.0-38.0 [facility] [facility]) MCH 30.9 pg 26.0-32.0 [facility] [facility]) Platelets [#/volume] in Blood by Automated count 260 x10*3/UL 140-440 [facility] ([facility]) Erythrocyte distribution width [Ratio] by Automated count 13.2 % 11.6-13.7 [facility] ([facility]) Lymph % 25.4 % 10.0-58.5 [facility] [facility] MPV 7.3 FL 7.8-11.0 [facility] ([place] [facility]) Mid % 7.7 % 1.7-9.3 [facility] [facility] Neut % 66.9 % 37.0-92.0 [facility] [facility] Lymph # 0.8 x10*3/UL 0.6-4.1 [facility] ([facility]) Mid # 0.4 x10*3/UL 0.1-0.6 [facility] ([facility]) Neut # 2.2 x10*3/UL 2.0-7.8 [facility] ([facility]) ID Date Data Source [id number] 01/19/2021 01:08:00 PM EDT [facility] ([facility]) Name Value Range Interpretation Code Description Data Torri rce(s) Supporting Document(s) Laboratory test finding (navigational concept) Laboratory test result [facility] ([facility]) LN2 at next visit Laboratory test finding (navigational concept) Laboratory test result [facility] ([facility]) LN2 at next visit ID Date Data Source [id number] 09/07/2020 08:50:00 AM EDT [facility] ([facility]) Name Value Range Interpretation Code Description Data Torri rce(s) Supporting Document(s) Phosphate [Moles/volume] in Serum or Plasma 3.9 mg/dL 2.5-4.9 [facility] ([facility]) ID Date Data Source [id number] 09/07/2020 08:50:00 AM EDT [facility] ([facility]) Name Value Range Interpretation Code Description Data Torri rce(s) Supporting Document(s) Magnesium 2.2 mg/dL 1.8-2.4 [facility]) ID Date Data Source [id number] 09/07/2020 08:50:00 AM EDT [facility] ([facility]) Name Value Range Interpretation Code Description Data Torri rce(s) Supporting Document(s) Glucose [Mass/volume] in Serum or Plasma 93 mg/dL 74-99 [facility] ([facility]) 100-125 mg/dL PRE-DIABETES/FASTING >126 mg/dL DIABETES/FASTING Urea nitrogen [Mass/volume] in Serum or Plasma 15 mg/dL 7-18 [facility] ([facility]) Creatinine 0.7 mg/dL 0.6-1.3 [facility] Sodium [Moles/volume] in Serum or Plasma 143 meq/L 136-145 [facility] ([facility]) Potassium [Moles/volume] in Serum or Plasma 4.1 meq/L 3.5-5.1 [facility] ([facility]) Chloride [Moles/volume] in Serum or Plasma 107 meq/L 98-107 [facility] ([facility]) Calcium [Mass/volume] in Serum or Plasma 8.9 mg/dL 8.5-10.1 [facility] ([facility]) Carbon dioxide, total [Moles/volume] in Serum or Plasma 31 meq/L 21 -32 [facility] ([facility]) Glomerular filtration rate/1.73 sq M pre dicted among non-blacks [Volume Rate/Area] in Serum or Plasma by Creatinine-based formula (MDRD) Laboratory test result [facility] ([facility] ) Glomerular filtration rate/1.73 sq M pre dicted among blacks [Volume Rate/Area] in Serum or Plasma by Creatinine-based formula (MDRD) Laboratory test result [facility] <content>CHRONIC KIDNEY DISEASE STAGING PER NKF</content>
<content></content>
<content>STAGE I & II GFR >= 60 NORMAL TO MILDLY DECREASED</content>
<content>STAGE III GFR 30-59 MODERATELY DECREASED</content>
<content>STAGE IV GFR 15-29 SEVERELY DECREASED</content>
<content>STAGE V GFR <15 VERY LITTLE GFR LEFT</content>
<content>ESRD GFR <15 ON VIDEO CONFERENCE SPECIALIST</content>
<content></content> ID Date Data Source [id number] 01/28/2020 10:36:00 AM EDT [facility] ([facility]) Name Value Range Interpretation Code Description Data Torri rce(s) Supporting Document(s) Phosphate [Moles/volume] in Serum or Plasma 4.0 mg/dL 2.5-4.9 [facility] ([facility]) ID Date Data Source [id number] 01/28/2020 10:36:00 AM EDT [facility] ([facility] Name Value Range Interpretation Code Description Data Torri rce(s) Supporting Document(s) Magnesium 2.0 mg/dL 1.8-2.4 [facility] [facility]) Calcidiol [Mass/volume] in Serum or Plasma 51.3 24.0-80.0 [facility] ([facility]) This test was performed using [employer] I P Vitamin D immunoassay kit. Values obtained with different assay methods should not be used interchangeably. ID Date Data Source [id number] 01/28/2020 10:36:00 AM EDT [facility] ([facility]) Name Value Range Interpretation Code Description Data Torri rce(s) Supporting Document(s) Cholesterol [Mass/volume] in Serum or Plasma 174 mg/dL 131-200 [facility] ([facility]) Cholesterol in HDL [Mass/volume] in Serum or Plasma 92 mg/dL 35-60 [facility] ([facility]) Triglyceride [Mass/volume] in Serum or Plasma 61 mg/dL 30-150 [facility] ([facility]) Cholesterol in LDL [Mass/volume] in Serum or Plasma by calcu lation 70 CALC 50-159 [facility] ID Date Data Source [id number] 01/28/2020 10:36:00 AM EDT [facility] Name Value Range Interpretation Code Description Data Torri rce(s) Supporting Document(s) Urea nitrogen [Mass/volume] in Serum or Plasma 18 mg/dL 7-18 [facility] ([facility]) Glucose [Mass/volume] in Serum or Plasma 96 mg/dL 74-99 [facility] ([facility]) 100-125 mg/dL PRE-DIABETES/FASTING >126 mg/dL DIABETES/FASTING Creatinine 0.7 mg/dL 0.6-1.3 [facility] ([facility]) Potassium [Moles/volume] in Serum or Plasma 4.5 meq/L 3.5-5.1 [facility] ([facility]) Chloride [Moles/volume] in Serum or Plasma 105 meq/L 98-107 [facility] ([facility]) Sodium [Moles/volume] in Serum or Plasma 144 meq/L 136-145 [facility] ([facility]) Carbon dioxide, total [Moles/volume] in Serum or Plasma 30 meq/L 21 -32 [facility] ([facility]) Total Bilirubin 0.3 mg/dL 0.2-1.0 [facility] ([facility]) Alkaline phosphatase isoenzyme [Units/volume] in Serum or Pl asma 75 mg/dL 46-116 [facility] ([facility]) Calcium [Mass/volume] in Serum or Plasma 9.1 mg/dL 8.5-10.1 [facility] ([facility]) Albumin [Mass/volume] in Serum or Plasma 3.9 g/dL 3.4-5.0 [facility] Alanine aminotransferase [Enzymatic activity/volume] in Seru m or Plasma 34 U/L 12-78 [facility] ([facility]) Aspartate aminotransferase [Enzymatic activity/volume] in Serum or Plasma 24 U/L 15-37 [facility] Glomerular filtration rate/1.73 sq M pre dicted among non-blacks [Volume Rate/Area] in Serum or Plasma by Creatinine-based formula (MDRD) Laboratory test result [facility] A/G Ratio 1.30 CALC 1.00-1.90 [facility] Proteinase 3 Ab [Units/volume] in Serum 6.9 g/dL 6.4-8.2 [facility] Glomerular filtration rate/1.73 sq M pre dicted among blacks [Volume Rate/Area] in Serum or Plasma by Creatinine-based formula (MDRD) Laboratory test result [facility]) <content>CHRONIC KIDNEY DISEASE STAGING PER NKF</content>
<content></content>
<content>STAGE I & II GFR >= 60 NORMAL TO MILDLY DECREASED</content>
<content>STAGE III GFR 30-59 MODERATELY DECREASED</content>
<content>STAGE IV GFR 15-29 SEVERELY DECREASED</content>
<content>STAGE V GFR <15 VERY LITTLE GFR LEFT</content>
<content>ESRD GFR <15 ON VIDEO CONFERENCE SPECIALIST</content>
<content></content> ID Date Data Source [id number] 01/28/2020 10:36:00 AM EDT [facility] ([facility]) Name Value Range Interpretation Code Description Data Torri rce(s) Supporting Document(s) Leukocytes [#/volume] in Blood by Automated count 3.8 x10*3/UL 4.1-10 .9 [facility] ([facility]) NOTE: RESULT VERIFIED. Erythrocytes [#/volume] in Blood by Automated count 4.11 x10*6/UL 4.2 0-6.30 [facility] Hemoglobin [Mass/volume] in Blood 12.7 g/dL 12.0-18.0 [facility] ([facility]) MCV 89.9 fL 80.0-97.0 [facility] MCH 30.9 pg 26.0-32.0 [facility]) Hematocrit [Volume Fraction] of Blood by Automated count 37.0 % 3 7.0-51.0 [facility] ([facility]) Erythrocyte distribution width [Ratio] by Automated count 12.4 % 11.6-13.7 [facility] Platelets [#/volume] in Blood by Automated count 253 x10*3/UL 140-440 [facility] MCHC 34.3 g/dL 31.0-38.0 [facility]) MPV 7.3 FL 7.8-11.0 [facility] [facility]) Lymph % 25.8 % 10.0-58.5 [facility] [facility]) Mid % 6.8 % 1.7-9.3 [facility] [facility] Neut % 67.4 % 37.0-92.0 [facility] [facility]) Lymph # 0.9 x10*3/UL 0.6-4.1 [facility] ([facility]) Mid # 0.4 x10*3/UL 0.1-0.6 [facility] ([facility]) Neut # 2.5 x10*3/UL 2.0-7.8 [facility] ([facility]) Procedure Social History Code Duration Value Status Description Data Source(s ) Smoking 03/10/2021 12:00:00 AM EST Never Smoked Cigarettes com pleted Never Smoked Cigarettes [facility] ([facility] [employer] [facility]) Smoking 01/24/2021 10:02:55 AM EDT Never smoked tobacco (findi ng) completed Never smoked tobacco (finding) [facility] (Robin Yañez MD [facility]) Smoking 01/03/2021 01:58:53 PM EDT Never smoked tobacco (findi ng) completed Never smoked tobacco (finding) [facility] (Robin Yañez MD [facility]) Smoking 10/06/2020 01:00:41 PM EDT Never smoked tobacco (findi ng) completed Never smoked tobacco (finding) [facility] (Robin Yañez MD [facility]) Smoking 03/31/2020 12:54:28 PM EST Never smoked tobacco (findi ng) completed Never smoked tobacco (finding) [facility] (Robin Yañez MD [facility]) Vital Signs ID Date Data Source UNK Name Value Range Interpretation Code Description Data Source(s) Systolic blood pressure 154 mm[Hg] 154 mm[Hg] [facility]) RT Arm Diastolic blood pressure 86 mm[Hg] 86 mm[Hg] [facility] ([facility]) RT Arm Systolic blood pressure 142 mm[Hg] 142 mm[Hg] M [facility] ([facility]) Diastolic blood pressure 82 mm[Hg] 82 mm[Hg] [facility] ([facility]) Body height 60 [in_i] 60 [in_i] [facility] ([facility]) 5'0" Body weight 122.00 [lb_av] 122.00 [lb_av] [facility] ([facility]) Oxygen saturation in Arterial blood by Pulse oximetry --post exerci se 97 % 97 % [facility] ([facility]) RM Air Body mass index (BMI) [Ratio] 23.8 kg/m2 23.8 k g/m2 [facility] ([facility]) Heart rate 88 /min 88 /min [facility] ([facility]) Body height 59 [in_i] 59 [in_i] [facility] ([facility] [employer] [facility]) 4'11" Systolic blood pressure 120 mm[Hg] 120 mm[Hg] M [facility] ([facility] [employer] [facility]) Diastolic blood pressure 80 mm[Hg] 80 mm[Hg] [facility] ([facility] [employer] [facility]) Body surface area Derived from formula 1.49 m2 1.49 m2 [facility] ([facility] [employer] [facility]) Body weight 121.00 [lb_av] 121.00 [lb_av] [facility] ([facility] [employer] [facility]) Body mass index (BMI) [Ratio] 24.4 kg/m2 24.4 k g/m2 [facility] ([facility] [employer] [facility]) Body height 60 [in_i] 60 [in_i] [facility] ([facility]) 5'0" Body weight 120.12 [lb_av] 120.12 [lb_av] [facility] ([facility]) Oxygen saturation in Arterial blood by Pulse oximetry 97 % 97 % [facility] ([facility]) Air Body mass index (BMI) [Ratio] 23.5 kg/m2 23.5 k g/m2 [facility] ([facility]) Systolic blood pressure 130 mm[Hg] 130 mm[Hg] [facility] ([facility]) Diastolic blood pressure 74 mm[Hg] 74 mm[Hg] [facility] ([facility]) Heart rate 86 /min 86 /min [facility] ([facility]) Systolic blood pressure 138 mm[Hg] 138 mm[Hg] M [facility] ([facility]) RT Arm Diastolic blood pressure 70 mm[Hg] 70 mm[Hg] [facility] ([facility]) RT Arm Heart rate 60 /min 60 /min [facility] ([facility]) Body height 60 [in_i] 60 [in_i] [facility] ([facility]) 5'0" Body weight 121.00 [lb_av] 121.00 [lb_av] [facility] ([facility]) Body mass index (BMI) [Ratio] 23.6 kg/m2 23.6 k g/m2 [facility] ([facility]) Body weight 115.00 [lb_av] 115.00 [lb_av] [facility] ([facility] Body temperature 98.4 [degF] 98.4 [degF] [facility] ([facility]) Respiratory rate 17 /min 17 /min [facility] ( [facility]) Diastolic blood pressure 68 mm[Hg] 68 mm[Hg] [facility] ([facility]) Body height 60 [in_i] 60 [in_i] [facility] ([facility]) 5'0" Systolic blood pressure 122 mm[Hg] 122 mm[Hg] M [facility] ([facility]) Heart rate 80 /min 80 /min [facility] ([facility]) Body weight 121.00 [lb_av] 121.00 [lb_av] [facility] Oxygen saturation in Arterial blood by Pulse oximetry 97 % 97 % [facility] ([facility]) RM Air Body mass index (BMI) [Ratio] 23.6 kg/m2 23.6 k g/m2 [facility] ([facility]) Patient Treatment Plan of Care Planned Activity Planned Date Details Description Data Source (s) dorzolamide 20 MG/ML Ophthalmic Solution 03/31/2020 12:00:00 AM EST [facility] (Robin Yañez MD [facility]) loteprednol etabonate 5 MG/ML Ophthalmic Suspension [L otemax] 02/04/2020 12:00:00 AM EDT [facility] (Robin Yañez MD [facility]) Brimonidine tartrate 1 MG/ML Ophthalmic Solution [Alph agan] 12/13/2019 12:00:00 AM EDT [facility] (Robin Yañez MD [facility])
[2021-03-11] MEDS ORDERED: propofoL 200 MG/20 ML VIAL As Ordered ONE (07:59)
[2021-03-11] MEDS ORDERED: fentaNYL 100 MCG/2 ML INJECTION (J3010) As Ordered ONE (07:59)
[2021-03-11] MEDS ORDERED: LIDOCAINE 2% 100MG/5ML SDV (FOR ANES.) As Ordered ONE (07:59)
[2021-03-11] MEDS ORDERED: MIDAZOLAM INJ 2MG/2ML VIAL (J2250 PER 1MG) As Ordered ONE (08:00)
[2021-03-11] MEDS ORDERED: LIDOCAINE 1% SDV 30ML VIAL As Ordered ONE (08:15)
[2021-03-11] MEDS ORDERED: ceFAZolin 1GM VIAL (J0690 PER 500MG) As Ordered ONE (08:15)
[2021-03-11 09:30] VITALS: BP 124/69
--- NOTE | 2021-03-11 11:46 | RO ---
OPERATIVE NOTE DATE OF OPERATION: 03/11/2021 PREOPERATIVE DIAGNOSIS/INDICATION FOR SURGERY: Incontinence with previous successful stage 1 InterStim. POSTOPERATIVE DIAGNOSIS: Incontinence with previous successful stage 1 InterStim. PROCEDURE: Stage 2 InterStim with programming and removal of temporary leads, etc and placement of permanent generator. SURGEON: Lizeth Kennedy MD FENCE INSTALLER: None. ANESTHESIA: Sedation and local. SPECIMEN: None. DESCRIPTION OF PROCEDURE/FINDINGS: Hiral was brought to the operating room where sufficient sedation was given. She was placed prone in the usual fashion, positioned, prepped and draped and then numbed with 1% Lidocaine without. An incision was made over the line of the previous extension connector and we then created the pocket, elevated out the temporary extension which we removed, connected the permanent lead to the permanent generator. It was then placed into the pocket which had been irrigated with antibiotic irrigant and made hemostatic with the Bovie. Deep closure with 2-0 Vicryl was undertaken and then tested impotence and having good results and then closed the skin with 3-0 Vicryl in subcuticular stitch. Dry, sterile dressings were applied. ESTIMATED BLOOD LOSS: About 2 mL. FLUID REPLACEMENT: Crystalloid. COMPLICATIONS: None. CONDITION AND DISPOSITION: Hiral tolerated the procedure well and was recovering in the recovery room in good condition.
== END 2021-03-11 09:53 | disposition home or self-care (01) ==
LOC: M SDC 07:05
PROVIDERS: ATTEND Obstetrics & Gynecology
DX: R32 Unspecified urinary incontinence (principal); E78.5 Hyperlipidemia, unspecified; Z86.718 Personal history of other venous thrombosis and embolism; Z79.899 Other long term (current) drug therapy; Z91.040 Latex allergy status; Z91.041 Radiographic dye allergy status; Z91.018 Allergy to other foods
CPT/HCPCS: 64590; C1787; J0690; J2250; J3010

== ENCOUNTER → 2021-03-16 | Outpatient (REF) | payer MEDICARE, BC ==
[~2021-03-16] MED LIST changes: -LR 1,000 ML IV ONE; -ceFAZolin SOD 2 GM in IV 1 EA IV ONE
== END ==
LOC: M LAB REF 12:22
PROVIDERS: ATTEND Internal Medicine
DX: M81.0 Age-related osteoporosis without current pathological fracture (principal)

== ENCOUNTER → 2021-08-03 | Outpatient (REF) | payer MEDICARE, BC | LOC: M LAB REF 12:11 | PROVIDERS: ATTEND Internal Medicine | DX: Z51.81 Encounter for therapeutic drug level monitoring (principal) ==

== ENCOUNTER → 2021-10-07 | Outpatient (CLI) | payer MEDICARE, BC | LOC: M WUC 13:49 | PROVIDERS: ATTEND Registered Nurse | DX: M25.562 Pain in left knee (principal) ==

== ENCOUNTER → 2021-10-14 | Outpatient (REF) | payer MEDICARE, BC | LOC: M LAB REF 11:31 | PROVIDERS: ATTEND Internal Medicine | DX: Z79.899 Other long term (current) drug therapy (principal) ==

== ENCOUNTER → 2022-01-27 | Outpatient (REF) | payer MEDICARE, BC ==
[2022-01-27 17:29] LABS: INR 0.98; PROTHROMBIN TIME 13.4 SECONDS (12.7-14.5)
== END ==
LOC: M LAB REF 16:30
PROVIDERS: ATTEND Internal Medicine
DX: Z01.818 Encounter for other preprocedural examination (principal); M17.12 Unilateral primary osteoarthritis, left knee; Z79.01 Long term (current) use of anticoagulants

== ENCOUNTER → 2022-01-27 | Outpatient (CLI) | payer MEDICARE, BC | LOC: M LAB 13:42 | PROVIDERS: ATTEND Internal Medicine Hematology & Oncology | DX: M17.12 Unilateral primary osteoarthritis, left knee (principal) ==

== ENCOUNTER → 2022-04-28 | Outpatient (REF) | payer MEDICARE, BC | LOC: M LAB REF 16:13 | PROVIDERS: ATTEND Internal Medicine | DX: M81.0 Age-related osteoporosis without current pathological fracture (principal); Z79.899 Other long term (current) drug therapy ==

== ENCOUNTER 2022-10-11 08:27 | Day surgery (SDC) | payer MEDICARE, BC ==
[~2022-10-11] VITALS: Ht 149.9 cm; Wt 52.5 kg
[~2022-10-11 08:27] MED LIST changes: +ALEV220T22 PO; +BRIN8DRO; +CEFUROXIME 1MG/0.1ML INTRACAMERAL INJ As Ordered ONE; +CYCLOPENTOLATE 1% OPHTH SOLN 2ML BTL OD SCH; +LIDOCAINE 1% SDV 5ML VIAL As Ordered ONE; +OFLOXACIN 0.3 % (OCUFLOX) OPTH SOL 5ML OD SCH; +PHENYLEPHRINE 2.5% OPHTH SOL 2ML OD SCH; +PROPARACAINE 0.5% OPHTH SOL 15ML OD ONE; +TROPICAMIDE 1% OPHTH SOLN 15ML OD SCH; +VITA500C24 PO
[2022-10-11] MEDS ORDERED: CYCLOPENTOLATE 1% OPHTH SOLN 2ML BTL OD SCH (09:25)
[2022-10-11] MEDS ORDERED: BSS IRR 500ML/OMIDRIA 4ML IRR BAG (OR ONLY) As Ordered ONE (09:39)
[2022-10-11] MEDS ORDERED: fentaNYL 100 MCG/2 ML INJECTION As Ordered ONE (10:11)
[2022-10-11] MEDS ORDERED: MIDAZOLAM INJ 2MG/2ML VIAL As Ordered ONE (10:11)
[2022-10-11] MEDS ORDERED: DUOVISC (0.50ML VISCOAT/0.85ML PROVISC) OPHTH KIT As Ordered ONE (10:58)
[2022-10-11 11:00] VITALS: BP 149/90; TEMP 98; O2SAT 96
== END 2022-10-11 11:02 | disposition home or self-care (01) ==
LOC: M SDC 08:27
PROVIDERS: ATTEND Ophthalmology
DX: H25.11 Age-related nuclear cataract, right eye (principal); E78.5 Hyperlipidemia, unspecified; K21.9 Gastro-esophageal reflux disease without esophagitis; R51.9 Headache, unspecified; Z85.3 Personal history of malignant neoplasm of breast; Z79.899 Other long term (current) drug therapy; Z91.041 Radiographic dye allergy status; Z91.040 Latex allergy status; Z91.018 Allergy to other foods
CPT/HCPCS: 66174; 66984; C1889; J0697; J1097; J2250; J3010; V2632

== ENCOUNTER → 2022-12-16 | Outpatient (CLI) | payer MEDICARE, BC ==
[~2022-12-16] MED LIST changes: -CEFUROXIME 1MG/0.1ML INTRACAMERAL INJ As Ordered ONE; -CYCLOPENTOLATE 1% OPHTH SOLN 2ML BTL OD SCH; +DICL100G10 TOP; -DICL1GEL3 TOP; -LIDOCAINE 1% SDV 5ML VIAL As Ordered ONE; -OFLOXACIN 0.3 % (OCUFLOX) OPTH SOL 5ML OD SCH; -PHENYLEPHRINE 2.5% OPHTH SOL 2ML OD SCH; -PROPARACAINE 0.5% OPHTH SOL 15ML OD ONE; -ROPI0.5T3 PO; +ROPI0.5T33 PO; -TROPICAMIDE 1% OPHTH SOLN 15ML OD SCH
== END ==
LOC: M PLARAD 12-15 12:18
PROVIDERS: ATTEND Internal Medicine
DX: D32.9 Benign neoplasm of meninges, unspecified (principal); G31.84 Mild cognitive impairment of uncertain or unknown etiology

== ENCOUNTER → 2022-12-20 | Outpatient (CLI) | payer MEDICARE, BC | LOC: M PLAIMG 09:50 | PROVIDERS: ATTEND Internal Medicine | DX: I60.8 Other nontraumatic subarachnoid hemorrhage (principal) ==

== ENCOUNTER → 2023-01-26 | Outpatient (CLI) | payer MEDICARE, BC | LOC: M EKG 13:17 | PROVIDERS: ATTEND Internal Medicine | DX: R55 Syncope and collapse (principal) ==

== ENCOUNTER → 2023-05-15 | Outpatient (REF) | payer MEDICARE, BC | LOC: M LAB REF 13:44 | PROVIDERS: ATTEND Internal Medicine | DX: Z79.899 Other long term (current) drug therapy (principal); M81.0 Age-related osteoporosis without current pathological fracture ==

== ENCOUNTER → 2023-06-06 | Outpatient (CLI) | payer MEDICARE, BC | LOC: M EKG 13:06 | PROVIDERS: ATTEND Internal Medicine Cardiovascular Disease | DX: R55 Syncope and collapse (principal); Z53.9 Procedure and treatment not carried out, unspecified reason ==

== ENCOUNTER → 2023-10-12 | Outpatient (REF) | payer MEDICARE, BC | LOC: M LAB REF 16:21 | PROVIDERS: ATTEND Internal Medicine | DX: R39.0 Extravasation of urine (principal) ==

== ENCOUNTER → 2023-11-15 | Outpatient (REF) | payer MEDICARE, BC | LOC: M LAB REF 13:24 | PROVIDERS: ATTEND Internal Medicine | DX: M81.0 Age-related osteoporosis without current pathological fracture (principal); Z79.899 Other long term (current) drug therapy ==

== ENCOUNTER → 2023-11-16 | Outpatient (CLI) | payer MEDICARE, BC | LOC: M RAD 08:45 | PROVIDERS: ATTEND Student in an Organized Health Care Education/Training Program | DX: M17.12 Unilateral primary osteoarthritis, left knee (principal); Z96.642 Presence of left artificial hip joint | CPT/HCPCS: 78315; A9503 ==

== ENCOUNTER → 2023-12-07 | Outpatient (REF) | payer MEDICARE, BC | LOC: M LAB REF 14:26 | PROVIDERS: ATTEND Internal Medicine Hematology & Oncology | DX: M25.462 Effusion, left knee (principal) ==

== ENCOUNTER 2024-02-12 06:21 | Day surgery (SDC) | payer MEDICARE, BC ==
[~2024-02-12] VITALS: Ht 149.9 cm; Wt 52.9 kg
[~2024-02-12 06:21] MED LIST changes: +BETA0.5S11 OD; -BIMA01SOL OD; +BIMA01SOL OU
[2024-02-12] MEDS ORDERED: LR 1,000 ML IV SCH (07:00)
[2024-02-12] MEDS ORDERED: fentaNYL 100 MCG/2 ML INJECTION As Ordered ONE (07:01)
[2024-02-12] MEDS: FLURBIPROFEN 0.03% OPHTH SOLN 2.5 ML OS SCH (07:26)
[2024-02-12] MEDS: TETRACAINE 0.5% OPHTH SOLN 4ML OS SCH (07:26)
[2024-02-12] MEDS: ATROPINE SULFATE 1% OPHTH SOLN 2ML BTL OS SCH (07:26)
[2024-02-12] MEDS: PHENYLEPHRINE 2.5% OPHTH SOL 2ML OS SCH (07:26)
[2024-02-12] MEDS: LIDOCAINE 1% SDV 5ML VIAL As Ordered ONE (08:50)
[2024-02-12] MEDS: CEFUROXIME 1MG/0.1ML INTRACAMERAL INJ As Ordered ONE (08:51)
[2024-02-12] MEDS: CARBACHOL 0.01% OPHTH SOLN 1.5ML VIAL As Ordered ONE (09:04)
[2024-02-12 09:24] VITALS: BP 163/87; TEMP 97.6; O2SAT 99
== END 2024-02-12 09:50 | disposition home or self-care (01) ==
LOC: M SDC 06:21
PROVIDERS: ATTEND Ophthalmology
DX: H25.12 Age-related nuclear cataract, left eye (principal); E78.00 Pure hypercholesterolemia, unspecified; R32 Unspecified urinary incontinence; K21.9 Gastro-esophageal reflux disease without esophagitis; Z79.899 Other long term (current) drug therapy; Z85.3 Personal history of malignant neoplasm of breast; Z92.3 Personal history of irradiation; Z91.040 Latex allergy status; Z91.041 Radiographic dye allergy status
CPT/HCPCS: 66984; J0697; J3010; V2632

== ENCOUNTER → 2024-06-11 | Outpatient (REF) | payer MEDICARE, BC | LOC: M LAB REF 13:09 | PROVIDERS: ATTEND Internal Medicine | DX: Z79.899 Other long term (current) drug therapy (principal) ==

== ENCOUNTER → 2024-12-09 | Outpatient (REF) | payer MEDICARE, BC ==
[~2024-12-09] MED LIST changes: +DENO60SY2 INJ; -PROL60SO INJ
== END ==
LOC: M LAB REF 13:40
PROVIDERS: ATTEND Internal Medicine
DX: M81.0 Age-related osteoporosis without current pathological fracture (principal); Z79.899 Other long term (current) drug therapy

== ENCOUNTER → 2025-02-14 | Outpatient (REF) | payer MEDICARE, BC | LOC: M LAB REF 11:48 | PROVIDERS: ATTEND Internal Medicine | DX: R30.0 Dysuria (principal) ==

== ENCOUNTER → 2025-02-19 | Outpatient (REF) | payer MEDICARE, BC ==
[2025-02-19 20:50] LABS: ATYPICAL LYMPH 1 % (0-5); EOSINOPHILS 4 % (0-3); LYMPHOCYTES 7 % (16-44); MONOCYTES 16 % (0-5); NEUTROPHILS 69 % (28-66); PLATELET ESTIMATE NORMAL (NORMAL)
== END ==
LOC: M LAB REF 17:45
PROVIDERS: ATTEND Internal Medicine
DX: D72.9 Disorder of white blood cells, unspecified (principal)

== ENCOUNTER → 2025-02-25 | Outpatient (CLI) | payer MEDICARE, BC | LOC: M WUC 10:25 | PROVIDERS: ATTEND Internal Medicine | DX: M25.572 Pain in left ankle and joints of left foot (principal); M79.89 Other specified soft tissue disorders; R93.6 Abnormal findings on diagnostic imaging of limbs ==